=== PATIENT | male | born 1960 | race Hispanic/Latino ===

== ENCOUNTER 2017-10-17 02:55 | Emergency (ER) | payer OTHER ==
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
== END 2017-10-17 05:48 | disposition home or self-care (01) ==
LOC: ER 02:55
DX: S16.1XXA Strain of muscle, fascia and tendon at neck level, initial encounter (principal); S29.012A Strain of muscle and tendon of back wall of thorax, initial encounter; S80.02XA Contusion of left knee, initial encounter; V49.49XA Driver injured in collision with other motor vehicles in traffic accident, initial encounter; I10 Essential (primary) hypertension; K21.9 Gastro-esophageal reflux disease without esophagitis; R73.03 Prediabetes
CPT/HCPCS: 71046; 72125; 72128; 73700; 99284

== ENCOUNTER 2018-01-19 13:01 | Emergency (ER) | payer OTHER ==
[2018-01-19 14:07] LABS: Absolute Lymphocytes (CBC) 1.3 K/uL (0.7-4.9); Absolute Monocytes 0.4 K/uL (0.1-1.3); Absolute Neutrophil 2.7 K/uL (1.8-8.0); Basophils % 0.9 % (0-1.3); Eosinophils % 6.4 % (0-4.4); Hematocrit 46.3 % (39.6-49.0); Lymphocytes % 27.1 % (15.3-44.8); MCH 29.4 pg (27.0-35.0); MCV 86.2 fL (80-100); MPV 8.7 fL (7.6-11.3); Monocytes % 8.9 % (3.3-12.3); RBC Red Blood Cell Count 5.37 M/uL (4.33-5.43)
[2018-01-19 14:24] LABS: Urine Blood NEGATIVE (NEG); Urine Glucose NEGATIVE (NEG); Urine Protein NEGATIVE (NEG)
[2018-01-19 14:25] LABS: Potassium 4.3 mmol/L (3.5-5.1); Thyroid Stimulating Hormone 1.36 uIU/mL (0.36-3.74)
--- NOTE | 2018-01-19 14:38 | ER ---
Nurse's Notes [facility] Name: Claudio Calero Age: 57 yrs Sex: Male : 1960 Arrival Date: 01/19/2018 Time: 13:03 Bed 28 Private MD: RAMONITA SHIPMAN Diagnosis: Other fatigue Presentation: 01/19 13:21 Presenting complaint: Patient states: i have this dizzy spells that started a couple of hj weeks ago; been started taking allergy meds, Zyrtec, o don't know if that s the reason behind the spells; denies fever and chills, nausea and vomiting;. Transition of care: patient was not received from another setting of care. Onset of symptoms was January 19, 2018. Risk Assessment: Do you want to hurt yourself or someone else? Patient reports no desire to harm self or others. Initial Sepsis Screen: Does the patient meet any 2 criteria? No. Patient's initial sepsis screen is negative. Does the patient have a suspected source of infection? No. Patient's initial sepsis screen is negative. Care prior to arrival: None. 13:21 Method Of Arrival: Ambulatory 13:21 Acuity: EVELYN 3 hj Triage Assessment: 13:26 General: Appears in no apparent distress. uncomfortable, Behavior is calm, cooperative, hj appropriate for age. Pain: Denies pain. Historical: - Allergies: 13:26 Sulfa (Sulfonamide Antibiotics); hj - Home Meds: 13:26 lisinopril 10 mg Oral tab 1 tab once daily [Active]; metformin 500 mg Oral Tb24 1 tab hj once daily [Active]; omeprazole 20 mg Oral cpDR 1 cap once daily [Active]; - PMHx: 13:26 GERD; Gout; Hernia; Hypertension; Pre-Diabetes; hj - PSHx: 13:26 hand surg; knee surg; hj - Immunization history:: Adult Immunizations up to date. - Social history:: Smoking status: Patient/guardian denies using tobacco, Patient/guardian denies using alcohol. - Ebola Screening: : Patient negative for fever greater than or equal to 101.5 degrees Fahrenheit, and additional compatible Ebola Virus Disease symptoms Patient denies exposure to infectious person Patient denies travel to an Ebola-affected area in the 21 days before illness onset. Screenin:26 Abuse screen: Denies threats or abuse. Denies injuries from another. Nutritional hj screening: No deficits noted. Tuberculosis screening: No symptoms or risk factors identified. Fall Risk None identified. Assessment: 13:40 General: Appears in no apparent distress. comfortable, well groomed, well developed, tl3 well nourished, Behavior is calm, cooperative, appropriate for age. Pain: Denies pain. Neuro: Level of Consciousness is awake, alert, obeys commands, Oriented to person, place, time, situation, Appropriate for age. Cardiovascular: Heart tones S1 S2 present Patient's skin is warm and dry. Respiratory: Airway is patent Respiratory effort is even, unlabored, Respiratory pattern is regular, symmetrical, Breath sounds are clear bilaterally. GI: No signs and/or symptoms were reported involving the gastrointestinal system. : No signs and/or symptoms were reported regarding the genitourinary system. EENT: Reports allergies, started taking Zyrtec daily recently. Derm: Skin is pink, warm \T\ dry. Musculoskeletal: No signs and/or symptoms reported regarding the musculoskeletal system. 14:37 Reassessment: Patient appears in no apparent distress at this time. No changes from tl3 previously documented assessment. Patient and/or family updated on plan of care and expected duration. Pain level reassessed. pt resting comfortable. Vital Signs: 13:26 BP 141 / 90; Pulse 80; Resp 18; Temp 98.1(TE); Pulse Ox 97% on R/A; Weight 129.27 kg; hj Height 5 ft. 8 in. (172.72 cm); Pain 0/10; 13:50 BP 140 / 88; Pulse 71; Resp 18; Pulse Ox 97% ; tl3 14:37 BP 146 / 101; Pulse 72; Resp 18; Pulse Ox 96% on R/A; tl3 13:26 Body Mass Index 43.33 (129.27 kg, 172.72 cm) ED Course: 13:03 Patient arrived in ED. mr 13:03 VA, VA is Private Physician. mr 13:25 Triage completed. hj 13:26 Arm band placed on right wrist. hj 13:26 Patient has correct armband on for positive identification. Bed in low position. Call light in reach. Side rails up X 1. Adult w/ patient. 13:29 Jean Walter NP is PHCP. pm1 13:29 Ger Urban MD is Attending Physician. pm1 13:29 Gabriella Ruiz, RN is Primary Nurse. tl3 13:50 Pulse ox on. NIBP on. Door closed. Lights dimmed. tl3 13:50 No provider procedures requiring assistance completed. Initial lab(s) drawn, by fl, tl3 sent to lab. Inserted saline lock: 20 gauge in left antecubital area, using aseptic technique. Blood collected. 14:53 IV discontinued, intact, bleeding controlled, No redness/swelling at site. Pressure tl3 dressing applied. Administered Medications: No medications were administered Outcome: 14:38 Discharge ordered by . pm1 14:53 Discharged to home ambulatory. tl3 14:53 Condition: good 14:53 Discharge instructions given to patient, Instructed on discharge instructions, follow up and referral plans. Demonstrated understanding of instructions, follow-up care. 14:54 Patient left the ED. tl3 Signatures: Mabel Eubanks IsidroKeith RN RN Jean Walter, OZIEL CLOD PULLER pm1 Gabriella Ruiz, RN RN tl3 Corrections: (The following items were deleted from the chart) 13:30 13:26 BP 163 / 109; Pulse 80bpm; Resp 18bpm; Pulse Ox 97% RA; Temp 98.1F Temporal; hj 129.27 kg; Height 5 ft. 8 in.; BMI: 43.3; Pain 0/10; hj 14:38 13:55 General: Appears tl3 tl3
--- NOTE | 2018-01-19 14:39 | EDPHYS ---
Physician Documentation [facility] Name: Claudio Calero Age: 57 yrs Sex: Male : 1960 Arrival Date: 01/19/2018 Time: 13:03 Bed 28 Private MD: [place], [place] ED Physician Ger Urban HPI: 01/19 13:40 This 57 yrs old Male presents to ER via Ambulatory with complaints of Low pm1 energy and tiredness. 13:40 Patient presents with complaints of tiredness and low energy for multiple weeks. pm1 Severity of symptoms: in the emergency department the symptoms are unchanged Pain is currently a 0 / 10. The patient has not recently seen a physician. Patient without any chest pain or shortness of breath. No fevers. No nausea, vomiting, or diarrhea. No headache or dizziness. 13:40 Patient did not take his blood pressure or diabetes medications this morning to show pm1 the ER his baseline without the medications. Historical: - Allergies: 13:26 Sulfa (Sulfonamide Antibiotics); hj - Home Meds: 13:26 lisinopril 10 mg Oral tab 1 tab once daily [Active]; metformin 500 mg Oral Tb24 1 tab hj once daily [Active]; omeprazole 20 mg Oral cpDR 1 cap once daily [Active]; - PMHx: 13:26 GERD; Gout; Hernia; Hypertension; Pre-Diabetes; hj - PSHx: 13:26 hand surg; knee surg; hj - Immunization history:: Adult Immunizations up to date. - Social history:: Smoking status: Patient/guardian denies using tobacco, Patient/guardian denies using alcohol. - Ebola Screening: : Patient negative for fever greater than or equal to 101.5 degrees Fahrenheit, and additional compatible Ebola Virus Disease symptoms Patient denies exposure to infectious person Patient denies travel to an Ebola-affected area in the 21 days before illness onset. ROS: 13:40 Constitutional: Negative for fever, chills, and weight loss, Eyes: Negative for injury, pm1 pain, redness, and discharge, ENT: Negative for injury, pain, and discharge, Neck: Negative for injury, pain, and swelling, Cardiovascular: Negative for chest pain, palpitations, and edema, Respiratory: Negative for shortness of breath, cough, wheezing, and pleuritic chest pain, Abdomen/GI: Negative for abdominal pain, nausea, vomiting, diarrhea, and constipation, Back: Negative for injury and pain, : Negative for injury, bleeding, discharge, and swelling, MS/Extremity: Negative for injury and deformity, Skin: Negative for injury, rash, and discoloration, Neuro: Negative for headache, weakness, numbness, tingling, and seizure. Exam: 13:40 Constitutional: This is a well developed, well nourished patient who is awake, alert, pm1 and in no acute distress. Head/Face: Normocephalic, atraumatic. Eyes: Pupils equal round and reactive to light, extra-ocular motions intact. Lids and lashes normal. Conjunctiva and sclera are non-icteric and not injected. Cornea within normal limits. Periorbital areas with no swelling, redness, or edema. ENT: Nares patent. No nasal discharge, no septal abnormalities noted. Tympanic membranes are normal and external auditory canals are clear. Oropharynx with no redness, swelling, or masses, exudates, or evidence of obstruction, uvula midline. Mucous membranes moist. Neck: Trachea midline, no thyromegaly or masses palpated, and no cervical lymphadenopathy. Supple, full range of motion without nuchal rigidity, or vertebral point tenderness. No Meningismus. Chest/axilla: Normal chest wall appearance and motion. Nontender with no deformity. No lesions are appreciated. Cardiovascular: Regular rate and rhythm with a normal S1 and S2. No gallops, murmurs, or rubs. Normal PMI, no JVD. No pulse deficits. Respiratory: Lungs have equal breath sounds bilaterally, clear to auscultation and percussion. No rales, rhonchi or wheezes noted. No increased work of breathing, no retractions or nasal flaring. Abdomen/GI: Soft, non-tender, with normal bowel sounds. No distension or tympany. No guarding or rebound. No evidence of tenderness throughout. Back: No spinal tenderness. No costovertebral tenderness. Full range of motion. Skin: Warm, dry with normal turgor. Normal color with no rashes, no lesions, and no evidence of cellulitis. MS/ Extremity: Pulses equal, no cyanosis. Neurovascular intact. Full, normal range of motion. 13:40 Neuro: Orientation: is normal, Motor: is normal. Vital Signs: 13:26 BP 141 / 90; Pulse 80; Resp 18; Temp 98.1(TE); Pulse Ox 97% on R/A; Weight 129.27 kg; hj Height 5 ft. 8 in. (172.72 cm); Pain 0/10; 13:50 BP 140 / 88; Pulse 71; Resp 18; Pulse Ox 97% ; tl3 14:37 BP 146 / 101; Pulse 72; Resp 18; Pulse Ox 96% on R/A; tl3 13:26 Body Mass Index 43.33 (129.27 kg, 172.72 cm) hj MDM: 13:29 Patient medically screened. pm1 14:37 Data reviewed: vital signs. Data interpreted: Pulse oximetry: on room air is 97 %. pm1 Interpretation: normal. Counseling: I had a detailed discussion with the patient and/or guardian regarding: the historical points, exam findings, and any diagnostic results supporting the discharge/admit diagnosis, lab results, the need for outpatient follow up, to return to the emergency department if symptoms worsen or persist or if there are any questions or concerns that arise at home. 01/19 13:39 Order name: CBC with Diff; Complete Time: 14:37 pm1 01/19 13:39 Order name: BMP; Complete Time: 14:37 pm1 01/19 13:39 Order name: Urine Dipstick-Ancillary (obtain specimen); Complete Time: 14:12 pm1 01/19 13:39 Order name: TSH; Complete Time: 14:37 pm1 01/19 13:39 Order name: IV Saline Lock; Complete Time: 14:12 pm1 01/19 14:15 Order name: Urine Dipstick--Ancillary (enter results); Complete Time: 14:37 bd Administered Medications: No medications were administered Disposition: 16:28 Co-signature as Attending Physician, Ger Urban MD. rn Disposition: 01/19/18 14:38 Discharged to Home. Impression: Other fatigue. - Condition is Stable. - Discharge Instructions: Fatigue. - Medication Reconciliation Form, Thank You Letter, Antibiotic Education, Prescription Opioid Use form. - Follow up: Emergency Department; When: As needed; Reason: Worsening of condition. Follow up: Private Physician; When: 2 - 3 days; Reason: Recheck today's complaints, Continuance of care, Re-evaluation by your physician. - Problem is new. - Symptoms have improved. Signatures: Dispatcher [employer] EDMS Ger Urban MD MD rn Joaquin, Henry, RN RN hj Marinas, Patrick, NP FUNCTIONAL ARCHITECT pm1 Gabriella Ruiz, VIVIENNE RN tl3 Corrections: (The following items were deleted from the chart) 14:38 14:38 01/19/2018 14:38 Discharged to Home. Impression: Weakness. Condition is Stable. pm1 Forms are Medication Reconciliation Form, Thank You Letter, Antibiotic Education, Prescription Opioid Use. Follow up: Emergency Department; When: As needed; Reason: Worsening of condition. Follow up: Private Physician; When: 2 - 3 days; Reason: Recheck today's complaints, Continuance of care, Re-evaluation by your physician. Problem is new. Symptoms have improved. pm1 14:54 14:38 01/19/2018 14:38 Discharged to Home. Impression: Other fatigue. Condition is tl3 Stable. Discharge Instructions: Fatigue. Forms are Medication Reconciliation Form, Thank You Letter, Antibiotic Education, Prescription Opioid Use. Follow up: Emergency Department; When: As needed; Reason: Worsening of condition. Follow up: Private Physician; When: 2 - 3 days; Reason: Recheck today's complaints, Continuance of care, Re-evaluation by your physician. Problem is new. Symptoms have improved. pm1
== END 2018-01-19 14:54 | disposition home or self-care (01) ==
LOC: ER 13:01
DX: R53.83 Other fatigue (principal); I10 Essential (primary) hypertension; R73.03 Prediabetes; Z88.2 Allergy status to sulfonamides
CPT/HCPCS: 36415; 80048; 81003; 84443; 85025; 99283

== ENCOUNTER 2018-08-27 04:03 | Emergency (ER) | payer OTHER ==
--- NOTE | 2018-08-27 05:26 | ER ---
Nurse's Notes [facility] Name: Claudio Calero Age: 57 yrs Sex: Male : 1960 Arrival Date: 08/27/2018 Time: 04:06 Bed 19 Private MD: Diagnosis: Nasal congestion Presentation: 08/27 04:17 Presenting complaint: Patient states: Pt reports he was laying down and he started ea feeling short of breath. Reports he has been having nasal congestion. Pt states "it feels like nasal feel collapse". 04:17 Transition of care: patient was not received from another setting of care. Onset of ea symptoms was August 27, 2018. Risk Assessment: Do you want to hurt yourself or someone else? Patient reports no desire to harm self or others. Initial Sepsis Screen: Does the patient meet any 2 criteria? No. Patient's initial sepsis screen is negative. Does the patient have a suspected source of infection? No. Patient's initial sepsis screen is negative. Care prior to arrival: None. 04:17 Method Of Arrival: Ambulatory ea 04:17 Acuity: EVELYN 3 ea Triage Assessment: 04:31 General: Appears in no apparent distress. Behavior is calm, cooperative, appropriate ea for age. Pain: Denies pain. EENT: Reports nasal congestion. Neuro: Level of Consciousness is awake, alert, obeys commands, Oriented to person, place, time, situation. Cardiovascular: Patient's skin is warm and dry. Respiratory: Reports shortness of breath cough that is non-productive, Airway is patent Respiratory effort is even, unlabored, Respiratory pattern is regular, symmetrical, Breath sounds are clear bilaterally. Distant breath sounds pipo Onset: The symptoms/episode began/occurred today, the patient has mild shortness of breath. Derm: Skin is pink, warm \\T\\ dry. Musculoskeletal: Circulation, motion, and sensation intact. Historical: - Allergies: 04:29 Sulfa (Sulfonamide Antibiotics); ea - Home Meds: 04:29 lisinopril 10 mg Oral tab 1 tab once daily [Active]; metformin 500 mg Oral Tb24 1 tab ea once daily [Active]; omeprazole 20 mg Oral cpDR 1 cap once daily [Active]; - PMHx: 04:29 Pre-Diabetes; Hypertension; Hernia; Gout; GERD; ea - PSHx: 04:29 knee surg; hand surg; ea - Immunization history:: Adult Immunizations up to date. - Social history:: Smoking status: Patient/guardian denies using tobacco. - Ebola Screening: : No symptoms or risks identified at this time. Screenin:17 Abuse screen: Denies threats or abuse. Nutritional screening: No deficits noted. ea Tuberculosis screening: No symptoms or risk factors identified. Fall Risk None identified. Assessment: 05:02 Reassessment: Patient and/or family updated on plan of care and expected duration. Pain ea level reassessed. Patient is alert, oriented x 3, equal unlabored respirations, skin warm/dry/pink. 05:25 Reassessment: Patient and/or family updated on plan of care and expected duration. Pain ea level reassessed. Patient is alert, oriented x 3, equal unlabored respirations, skin warm/dry/pink. Discharge instructions given to patient, verbalized the understanding of instruction. Vital Signs: 04:17 BP 152 / 91; Pulse 83; Resp 20; Temp 97.6(O); Pulse Ox 99% on R/A; Weight 127.01 kg; ea Height 5 ft. 8 in. (172.72 cm); 05:02 BP 137 / 87; Pulse 85; Resp 18; Pulse Ox 95% ; ea 04:17 Body Mass Index 42.57 (127.01 kg, 172.72 cm) ea ED Course: 04:06 Patient arrived in ED. am2 04:09 January Carvajal, RN is Primary Nurse. ea 04:17 Patient has correct armband on for positive identification. Bed in low position. Call ea light in reach. 04:19 Veto Pandya MD is Attending Physician. kdr 04:31 Triage completed. ea 04:34 Arm band placed on right wrist. Patient placed in an exam room, on a stretcher, on ea pulse oximetry. 05:15 No provider procedures requiring assistance completed. Patient did not have IV access ea during this emergency room visit. Administered Medications: No medications were administered Outcome: 05:25 Discharge ordered by . kdr 05:25 Discharged to home ambulatory. ea 05:25 Condition: good 05:25 Discharge instructions given to patient, Instructed on discharge instructions, follow up and referral plans. Demonstrated understanding of instructions, follow-up care. 05:30 Patient left the ED. ea Signatures: Veto Pandya MD MD kdr Moreno, Amanda am2 January Carvajal, RN RN ea Corrections: (The following items were deleted from the chart) 06:12 05:15 Reassessment: Patient and/or family updated on plan of care and expected ea duration. Pain level reassessed. Patient is alert, oriented x 3, equal unlabored respirations, skin warm/dry/pink. Discharge instructions given to patient, verbalized the understanding of instruction ea
--- NOTE | 2018-08-27 05:26 | EDPHYS ---
Physician Documentation [facility] Name: Claudio Calero Age: 57 yrs Sex: Male : 1960 Arrival Date: 08/27/2018 Time: 04:06 Bed 19 Private MD: ED Physician Veto Pandya HPI: 08/27 05:33 This 57 yrs old Male presents to ER via Ambulatory with complaints of kdr Breathing Difficulty. 05:33 The patient presents with Congested and hard to move air through. Onset: The kdr symptoms/episode began/occurred today. Modifying factors: The symptoms are alleviated by The patient had administered Flonase to both nostrils several hours [employer] and now feeling much better, the symptoms are aggravated by nothing. Associated signs and symptoms: The patient has no apparent associated signs or symptoms. Severity of symptoms: At their worst the symptoms were mild in the emergency department the symptoms have resolved. The patient has not experienced similar symptoms in the past. The patient has not recently seen a physician. Historical: - Allergies: 04:29 Sulfa (Sulfonamide Antibiotics); ea - Home Meds: 04:29 lisinopril 10 mg Oral tab 1 tab once daily [Active]; metformin 500 mg Oral Tb24 1 tab ea once daily [Active]; omeprazole 20 mg Oral cpDR 1 cap once daily [Active]; - PMHx: 04:29 Pre-Diabetes; Hypertension; Hernia; Gout; GERD; ea - PSHx: 04:29 knee surg; hand surg; ea - Immunization history:: Adult Immunizations up to date. - Social history:: Smoking status: Patient/guardian denies using tobacco. - Ebola Screening: : No symptoms or risks identified at this time. ROS: 05:33 Constitutional: Negative for fever, chills, and weight loss, Eyes: Negative for injury, kdr pain, redness, and discharge, Neck: Negative for injury, pain, and swelling, Cardiovascular: Negative for chest pain, palpitations, and edema, Respiratory: Negative for shortness of breath, cough, wheezing, and pleuritic chest pain, Abdomen/GI: Negative for abdominal pain, nausea, vomiting, diarrhea, and constipation, Back: Negative for injury and pain, : Negative for injury, bleeding, discharge, and swelling, MS/Extremity: Negative for injury and deformity, Skin: Negative for injury, rash, and discoloration, Neuro: Negative for headache, weakness, numbness, tingling, and seizure activity. Psych: Negative for depression, anxiety, suicide ideation, homicidal ideation, and hallucinations, Allergy/Immunology: Negative for hives, rash, and allergies, Endocrine: Negative for neck swelling, polydipsia, polyuria, polyphagia, and marked weight changes, Hematologic/Lymphatic: Negative for swollen nodes, abnormal bleeding, and unusual bruising. 05:33 ENT: Positive for Nasal Congestion. Exam: 05:33 Constitutional: This is a well developed, well nourished patient who is awake, alert, kdr and in no acute distress. Head/Face: Normocephalic, atraumatic. Eyes: Pupils equal round and reactive to light, extra-ocular motions intact. Lids and lashes normal. Conjunctiva and sclera are non-icteric and not injected. Cornea within normal limits. Periorbital areas with no swelling, redness, or edema. ENT: Nares patent. No nasal discharge, no septal abnormalities noted. Tympanic membranes are normal and external auditory canals are clear. Oropharynx with no redness, swelling, or masses, exudates, or evidence of obstruction, uvula midline. Mucous membranes moist. Neck: Trachea midline, no thyromegaly or masses palpated, and no cervical lymphadenopathy. Supple, full range of motion without nuchal rigidity, or vertebral point tenderness. No Meningismus. Chest/axilla: Normal chest wall appearance and motion. Nontender with no deformity. No lesions are appreciated. Cardiovascular: Regular rate and rhythm with a normal S1 and S2. No gallops, murmurs, or rubs. Normal PMI, no JVD. No pulse deficits. Respiratory: Lungs have equal breath sounds bilaterally, clear to auscultation and percussion. No rales, rhonchi or wheezes noted. No increased work of breathing, no retractions or nasal flaring. Abdomen/GI: Soft, non-tender, with normal bowel sounds. No distension or tympany. No guarding or rebound. No evidence of tenderness throughout. Back: No spinal tenderness. No costovertebral tenderness. Full range of motion. Skin: Warm, dry with normal turgor. Normal color with no rashes, no lesions, and no evidence of cellulitis. MS/ Extremity: Pulses equal, no cyanosis. Neurovascular intact. Full, normal range of motion. Neuro: Awake and alert, GCS 15, oriented to person, place, time, and situation. Cranial nerves II-XII grossly intact. Motor strength 5/5 in all extremities. Sensory grossly intact. Cerebellar exam normal. Normal gait. Psych: Awake, alert, with orientation to person, place and time. Behavior, mood, and affect are within normal limits. Vital Signs: 04:17 BP 152 / 91; Pulse 83; Resp 20; Temp 97.6(O); Pulse Ox 99% on R/A; Weight 127.01 kg; ea Height 5 ft. 8 in. (172.72 cm); 05:02 BP 137 / 87; Pulse 85; Resp 18; Pulse Ox 95% ; ea 04:17 Body Mass Index 42.57 (127.01 kg, 172.72 cm) ea MDM: 05:25 Patient medically screened. kdr 05:43 Data reviewed: vital signs, nurses notes. kdr Administered Medications: No medications were administered Disposition: 08/27/18 05:25 Discharged to Home. Impression: Nasal congestion. - Condition is Stable. - Medication Reconciliation Form, Thank You Letter, Antibiotic Education, Prescription Opioid Use form. - Follow up: Private Physician; When: 2 - 3 days; Reason: If symptoms return, Further diagnostic work-up, Recheck today's complaints, Continuance of care, Re-evaluation by your physician. - Problem is new. - Symptoms are resolved. Signatures: Veto Pandya MD MD kdr January Carvajal RN RN alanna Corrections: (The following items were deleted from the chart) 05:30 05:25 08/27/2018 05:25 Discharged to Home. Impression: Nasal congestion. Condition is ea Stable. Forms are Medication Reconciliation Form, Thank You Letter, Antibiotic Education, Prescription Opioid Use. Follow up: Private Physician; When: 2 - 3 days; Reason: If symptoms return, Further diagnostic work-up, Recheck today's complaints, Continuance of care, Re-evaluation by your physician. Problem is new. Symptoms are resolved. kdr
== END 2018-08-27 05:30 | disposition home or self-care (01) ==
LOC: ER 04:03
DX: R09.81 Nasal congestion (principal); I10 Essential (primary) hypertension; R73.03 Prediabetes; M10.9 Gout, unspecified; K21.9 Gastro-esophageal reflux disease without esophagitis; Z88.2 Allergy status to sulfonamides; Z79.84 Long term (current) use of oral hypoglycemic drugs
CPT/HCPCS: 99283

== ENCOUNTER 2018-08-27 13:05 | Emergency (ER) | payer OTHER ==
[2018-08-27 14:56] LABS: Absolute Lymphocytes (CBC) 1.6 K/uL (0.7-4.9); Absolute Monocytes 0.6 K/uL (0.1-1.3); Absolute Neutrophil 3.1 K/uL (1.8-8.0); Basophils % 1.1 % (0-1.3); Eosinophils % 4.4 % (0-4.4); Hematocrit 45.4 % (39.6-49.0); Lymphocytes % 28.6 % (15.3-44.8); MPV 8.6 fL (7.6-11.3); Monocytes % 10.1 % (3.3-12.3); RBC Red Blood Cell Count 5.31 M/uL (4.33-5.43)
[2018-08-27 15:18] LABS: ALT/SGPT 35 U/L (12-78); AST/SGOT 25 U/L (15-37); Albumin 3.8 g/dL (3.4-5.0); Alkaline Phosphatase 72 U/L (45-117); BUN Blood Urea Nitrogen 21 mg/dL (7-18); Bicarbonate 29 mmol/L (21-32); Bilirubin Direct 0.1 mg/dL (0-0.2); Bilirubin Total 0.5 mg/dL (0.2-1.0); Glucose Level 122 mg/dL (74-106); Magnesium 1.9 mg/dL (1.8-2.4); NT PRO-BNP 40 pg/mL (<125); Potassium 4.4 mmol/L (3.5-5.1); Protein, Total 7.2 g/dL (6.4-8.2); Sodium Level 141 mmol/L (136-145); Troponin (Emerg Dept Use Only) < 0.02 ng/mL (0.0-0.045)
--- NOTE | 2018-08-27 15:20 | RAD REPORT ---
EXAM DESCRIPTION: RAD - Chest Single View - 08/27/2018 2:50 pm CLINICAL HISTORY: CHEST PAIN Chest pain. COMPARISON: Chest Pa And Lat (2 Views) dated 10/17/2017; Chest Single View dated 07/04/2017; Chest Sing le View dated 02/28/2017; Chest Single View dated 02/15/2016 FINDINGS: Portable technique limits examination quality. The lungs are grossly clear. The heart is normal in size. No displaced fractures. IMPRESSION: No acute intrathoracic process suspected.
--- NOTE | 2018-08-27 15:34 | EDPHYS ---
Physician Documentation [facility] Name: Claudio Calero Age: 57 yrs Sex: Male : 1960 Arrival Date: 08/27/2018 Time: 13:08 Bed 13 Private MD: RAMONITA, [place] ED Physician Ger Urban HPI: 08/27 14:30 This 57 yrs old Male presents to ER via Ambulatory with complaints of pm1 Breathing Difficulty. 14:30 The patient has shortness of breath due to nasal congestion. Patient reports chest pain pm1 that started last night around 1999 after eating. Patient with history of reflux disease. The patient's shortness of breath is aggravated by nothing, is alleviated by nothing. Associated signs and symptoms: Pertinent negatives: non-productive cough, productive cough, diaphoresis, dizziness, fever, nausea, numbness in extremities, vomiting. The patient has not experienced similar symptoms in the past. The patient has been recently seen at the [facility] Emergency Department, today, nasal congestion. Historical: - Allergies: 13:28 Sulfa (Sulfonamide Antibiotics); aa5 - Home Meds: 13:28 lisinopril 10 mg Oral tab 1 tab once daily [Active]; metformin 500 mg Oral Tb24 1 tab aa5 once daily [Active]; omeprazole 20 mg Oral cpDR 1 cap once daily [Active]; - PMHx: 13:28 GERD; Gout; Hernia; Hypertension; Diabetes - NIDDM; aa5 - PSHx: 13:28 knee surg; hand surg; aa5 13:28 deviated septum repair; aa5 - Immunization history:: Flu vaccine is not up to date. - Social history:: Smoking status: Patient/guardian denies using tobacco. - Ebola Screening: : No symptoms or risks identified at this time. ROS: 14:30 Constitutional: Negative for fever, chills, and weight loss, Eyes: Negative for injury, pm1 pain, redness, and discharge, Neck: Negative for injury, pain, and swelling, Respiratory: Negative for shortness of breath, cough, wheezing, and pleuritic chest pain. 14:30 Abdomen/GI: Negative for abdominal pain, nausea, vomiting, diarrhea, and constipation, Back: Negative for injury and pain, : Negative for injury, bleeding, discharge, and swelling, MS/Extremity: Negative for injury and deformity, Skin: Negative for injury, rash, and discoloration, Neuro: Negative for headache, weakness, numbness, tingling, and seizure. 14:30 ENT: Positive for Nasal congestion. 14:30 Cardiovascular: Positive for chest pain, Negative for edema, orthopnea, palpitations. Exam: 14:30 Constitutional: This is a well developed, well nourished patient who is awake, alert, pm1 and in no acute distress. Head/Face: Normocephalic, atraumatic. Eyes: Pupils equal round and reactive to light, extra-ocular motions intact. Lids and lashes normal. Conjunctiva and sclera are non-icteric and not injected. Cornea within normal limits. Periorbital areas with no swelling, redness, or edema. ENT: Nares patent. No nasal discharge, no septal abnormalities noted. Tympanic membranes are normal and external auditory canals are clear. Oropharynx with no redness, swelling, or masses, exudates, or evidence of obstruction, uvula midline. Mucous membranes moist. Neck: Trachea midline, no thyromegaly or masses palpated, and no cervical lymphadenopathy. Supple, full range of motion without nuchal rigidity, or vertebral point tenderness. No Meningismus. 14:30 Cardiovascular: Regular rate and rhythm with a normal S1 and S2. No gallops, murmurs, or rubs. Normal PMI, no JVD. No pulse deficits. Respiratory: Lungs have equal breath sounds bilaterally, clear to auscultation and percussion. No rales, rhonchi or wheezes noted. No increased work of breathing, no retractions or nasal flaring. Abdomen/GI: Soft, non-tender, with normal bowel sounds. No distension or tympany. No guarding or rebound. No evidence of tenderness throughout. Back: No spinal tenderness. No costovertebral tenderness. Full range of motion. Skin: Warm, dry with normal turgor. Normal color with no rashes, no lesions, and no evidence of cellulitis. MS/ Extremity: Pulses equal, no cyanosis. Neurovascular intact. Full, normal range of motion. 14:30 Chest/axilla: Inspection: normal, Palpation: is normal. 14:30 Neuro: Orientation: is normal, Motor: is normal, moves all fours, Sensation: is normal, no obvious gross deficits, Gait: is steady, at a normal pace, without difficulty. Vital Signs: 13:29 BP 142 / 86; Pulse 76; Resp 16 S; Temp 98.2(TE); Pulse Ox 96% on R/A; Weight 131.54 kg aa5 (R); Height 5 ft. 8 in. (172.72 cm) (R); Pain 0/10; 14:49 BP 151 / 86; Pulse 72; Resp 18; Pulse Ox 96% on R/A; tw2 15:26 BP 138 / 88; Pulse 61; Resp 17; Pulse Ox 98% on R/A; tw2 13:29 Body Mass Index 44.09 (131.54 kg, 172.72 cm) aa5 MDM: 13:50 Patient medically screened. pm1 15:33 Data reviewed: vital signs. Data interpreted: Pulse oximetry: on room air is 98 %. pm1 Interpretation: normal. Counseling: I had a detailed discussion with the patient and/or guardian regarding: the historical points, exam findings, and any diagnostic results supporting the discharge/admit diagnosis, lab results, radiology results, the need for outpatient follow up, to return to the emergency department if symptoms worsen or persist or if there are any questions or concerns that arise at home. 08/27 14:19 Order name: Basic Metabolic Panel; Complete Time: 15:33 pm1 08/27 14:19 Order name: CBC with Diff; Complete Time: 15:33 pm1 08/27 14:19 Order name: LFT's; Complete Time: 15:33 pm1 08/27 14:19 Order name: Magnesium; Complete Time: 15:33 pm1 08/27 14:19 Order name: NT PRO-BNP; Complete Time: 15:33 pm1 08/27 14:19 Order name: PT-INR; Complete Time: 15:33 pm1 08/27 14:19 Order name: Troponin (emerg Dept Use Only); Complete Time: 15:33 pm1 08/27 14:19 Order name: XRAY Chest (1 view); Complete Time: 15:33 pm1 08/27 14:19 Order name: EKG; Complete Time: 14:20 pm1 08/27 14:19 Order name: Cardiac monitoring; Complete Time: 14:53 pm1 08/27 14:19 Order name: EKG - Nurse/Tech; Complete Time: 15:01 pm08/27 14:19 Order name: IV Saline Lock; Complete Time: 14:53 pm1 08/27 14:19 Order name: Labs collected and sent; Complete Time: 14:53 pm1 08/27 14:19 Order name: O2 Per Protocol; Complete Time: 14:53 pm1 08/27 14:19 Order name: O2 Sat Monitoring; Complete Time: 14:53 pm1 Administered Medications: No medications were administered Disposition: 16:10 Co-signature as Attending Physician, Ger Urban MD. rn Disposition: 08/27/18 15:34 Discharged to Home. Impression: Chest pain, unspecified. - Condition is Stable. - Discharge Instructions: Nonspecific Chest Pain. - Medication Reconciliation Form, Thank You Letter form. - Follow up: Emergency Department; When: As needed; Reason: Worsening of condition. Follow up: Private Physician; When: 2 - 3 days; Reason: Recheck today's complaints, Continuance of care, Re-evaluation by your physician. - Problem is new. - Symptoms have improved. Signatures: Dispatcher [employer] EDMS Ger Urban MD MD rn Calderon, Audri RN RN aa5 Jean Walter NP LAW LIBRARIAN pm1 Ambar Neal RN RN tw2 Corrections: (The following items were deleted from the chart) 15:42 15:34 08/27/2018 15:34 Discharged to Home. Impression: Chest pain, unspecified. tw2 Condition is Stable. Forms are Medication Reconciliation Form, Thank You Letter, Antibiotic Education, Prescription Opioid Use. Follow up: Emergency Department; When: As needed; Reason: Worsening of condition. Follow up: Private Physician; When: 2 - 3 days; Reason: Recheck today's complaints, Continuance of care, Re-evaluation by your physician. Problem is new. Symptoms have improved. pm1
--- NOTE | 2018-08-27 15:34 | ER ---
Nurse's Notes [facility] Name: Claudio Calero Age: 57 yrs Sex: Male : 1960 Arrival Date: 08/27/2018 Time: 13:08 Bed 13 Private MD: RAMONITA SHIPMAN Diagnosis: Chest pain, unspecified Presentation: 08/27 13:27 Presenting complaint: Patient states: "I was just here this morning but I am still aa5 feeling short of breath". Pt reports SOB since last night. Pt states "I feel like my nasal passages are plugged and when I lie down flat I can't sleep because I can't breath". Transition of care: patient was not received from another setting of care. Onset of symptoms was August 2018. Risk Assessment: Do you want to hurt yourself or someone else? Patient reports no desire to harm self or others. Initial Sepsis Screen: Does the patient meet any 2 criteria? No. Patient's initial sepsis screen is negative. Does the patient have a suspected source of infection? No. Patient's initial sepsis screen is negative. Care prior to arrival: None. 13:27 Method Of Arrival: Ambulatory aa5 13:27 Acuity: EVELYN 3 aa5 Triage Assessment: 13:50 General: Appears in no apparent distress. Respiratory: Onset: The symptoms/episode tw2 began/occurred this morning, the patient has mild shortness of breath. Respiratory: Reports shortness of breath at rest. Historical: - Allergies: 13:28 Sulfa (Sulfonamide Antibiotics); aa5 - Home Meds: 13:28 lisinopril 10 mg Oral tab 1 tab once daily [Active]; metformin 500 mg Oral Tb24 1 tab aa5 once daily [Active]; omeprazole 20 mg Oral cpDR 1 cap once daily [Active]; - PMHx: 13:28 GERD; Gout; Hernia; Hypertension; Diabetes - NIDDM; aa5 - PSHx: 13:28 knee surg; hand surg; aa5 13:28 deviated septum repair; aa5 - Immunization history:: Flu vaccine is not up to date. - Social history:: Smoking status: Patient/guardian denies using tobacco. - Ebola Screening: : No symptoms or risks identified at this time. Screenin:58 Abuse screen: Denies threats or abuse. Nutritional screening: No deficits noted. tw2 Tuberculosis screening: No symptoms or risk factors identified. Fall Risk None identified. Assessment: 14:00 General: Appears in no apparent distress. obese, well groomed, Behavior is calm, tw2 cooperative, appropriate for age. Pain: Denies pain. Neuro: Level of Consciousness is awake, alert, obeys commands, Oriented to person, place, time, situation. Cardiovascular: Heart tones S1 S2 Patient's skin is warm and dry. Rhythm is regular. Respiratory: Airway is patent Respiratory effort is even, unlabored, Respiratory pattern is regular, symmetrical, Breath sounds are clear bilaterally. GI: Abdomen is round non-distended, obese, Bowel sounds present X 4 quads. Reports indigestion, "and i have this hernia that needs to be repaired but i want to make sure everything is ok". : No signs and/or symptoms were reported regarding the genitourinary system. EENT: No signs and/or symptoms were reported regarding the EENT system. Derm: No signs and/or symptoms reported regarding the dermatologic system. Musculoskeletal: Range of motion: intact in all extremities. 14:49 Reassessment: Patient appears in no apparent distress at this time. No changes from tw2 previously documented assessment. Patient and/or family updated on plan of care and expected duration. Pain level reassessed. Patient is alert, oriented x 3, equal unlabored respirations, skin warm/dry/pink. 15:27 Reassessment: Patient appears in no apparent distress at this time. No changes from tw2 previously documented assessment. Patient and/or family updated on plan of care and expected duration. Pain level reassessed. Patient is alert, oriented x 3, equal unlabored respirations, skin warm/dry/pink. 15:42 Reassessment: Patient appears in no apparent distress at this time. No changes from tw2 previously documented assessment. Patient and/or family updated on plan of care and expected duration. Pain level reassessed. Patient is alert, oriented x 3, equal unlabored respirations, skin warm/dry/pink. Vital Signs: 13:29 BP 142 / 86; Pulse 76; Resp 16 S; Temp 98.2(TE); Pulse Ox 96% on R/A; Weight 131.54 kg aa5 (R); Height 5 ft. 8 in. (172.72 cm) (R); Pain 0/10; 14:49 BP 151 / 86; Pulse 72; Resp 18; Pulse Ox 96% on R/A; tw2 15:26 BP 138 / 88; Pulse 61; Resp 17; Pulse Ox 98% on R/A; tw2 13:29 Body Mass Index 44.09 (131.54 kg, 172.72 cm) aa5 ED Course: 13:08 Patient arrived in ED. mr 13:08 VA, VA is Private Physician. mr 13:27 Triage completed. aa5 13:27 Arm band placed on. aa5 13:49 Jean Walter NP is PHCP. pm1 13:49 Ger Urban MD is Attending Physician. pm1 13:50 Bed in low position. Call light in reach. Side rails up X2. campus monitor on. Pulse tw2 ox on. NIBP on. Warm blanket given. 13:51 Ambar Neal RN is Primary Nurse. tw2 14:51 XRAY Chest (1 view) In Process Unspecified. EDMS 14:52 Initial lab(s) drawn, by me, sent to lab. Inserted saline lock: 20 gauge in left ms antecubital area, using aseptic technique. Blood collected. 15:01 EKG done, by ED staff, reviewed by Ger Urban MD. ms 15:42 No provider procedures requiring assistance completed. IV discontinued, intact, tw2 bleeding controlled, No redness/swelling at site. Pressure dressing applied. Administered Medications: No medications were administered Outcome: 15:34 Discharge ordered by MD. pm1 15:42 Discharged to home ambulatory. tw2 15:42 Condition: stable 15:42 Discharge instructions given to patient, Instructed on discharge instructions, follow up and referral plans. Demonstrated understanding of instructions, follow-up care. 15:42 Patient left the ED. tw2 Signatures: Dispatcher [employer] EDSC EubanksYuli dan mr LojaMabel Francisca Bloom RN RN aa5 Jean Walter NP CORK INSULATION INSTALLER pm1 Ambar Neal RN RN tw2 Corrections: (The following items were deleted from the chart) 13:30 13:27 Presenting complaint: Patient states: "I was just here this morning but I am aa5 still feeling short of breath". Pt reports SOB since last night. aa5
--- NOTE | 2018-08-28 12:27 | EKG ---
Test Date: 2018-08-27 Test Time: 14:57:47 Supervisor Microfilm Duplicating Unit: MEASUREMENT RESULTS: Intervals: Rate: 73 IL: 170 QRSD: 88 QT: 394 QTc: 434 [place]: P: 39 IL: 170 QRS: 48 T: 44 INTERPRETIVE STATEMENTS: Normal sinus rhythm Low voltage QRS Borderline ECG Compared to ECG 07/04/2017 10:14:28 Low QRS voltage now present Electronically Signed On 08-28-18 12:24:33 CDT by Joni Live
== END 2018-08-27 15:42 | disposition home or self-care (01) ==
LOC: ER 13:05
DX: R07.9 Chest pain, unspecified (principal); R09.81 Nasal congestion; K21.9 Gastro-esophageal reflux disease without esophagitis; M10.9 Gout, unspecified; I10 Essential (primary) hypertension; E11.9 Type 2 diabetes mellitus without complications; Z88.2 Allergy status to sulfonamides
CPT/HCPCS: 36415; 71045; 80048; 80076; 83735; 83880; 84484; 85025; 85610; 93005; 99284

== ENCOUNTER 2019-01-17 02:27 | Emergency (ER) | payer OTHER ==
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
--- NOTE | 2019-01-17 08:16 | RAD REPORT ---
EXAM DESCRIPTION: Carmen Single View01/17/2019 3:46 am CLINICAL HISTORY: Chest pain COMPARISON: August 2018 FINDINGS: The lungs appear clear of acute infiltrate. The heart is normal size IMPRESSION: No acute abnormalities displayed
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
== END 2019-01-17 05:56 | disposition home or self-care (01) ==
LOC: ER 02:27
DX: M54.2 Cervicalgia (principal); M25.512 Pain in left shoulder; T14.8XXA Other injury of unspecified body region, initial encounter; V49.3XXA Car occupant (driver) (passenger) injured in unspecified nontraffic accident, initial encounter; I10 Essential (primary) hypertension; M10.9 Gout, unspecified; E11.9 Type 2 diabetes mellitus without complications; K21.9 Gastro-esophageal reflux disease without esophagitis; Z79.84 Long term (current) use of oral hypoglycemic drugs; Z88.2 Allergy status to sulfonamides
CPT/HCPCS: 70450; 71045; 72125; 99283

== ENCOUNTER 2019-03-27 16:06 | Emergency (ER) | payer OTHER ==
[2019-03-27 16:28] LABS: Absolute Lymphocytes (CBC) 1.5 K/uL (0.7-4.9); Basophils % 1.3 % (0-1.3); Hematocrit 41.3 % (39.6-49.0); Lymphocytes % 24.2 % (15.3-44.8); MPV 8.5 fL (7.6-11.3); RBC Red Blood Cell Count 4.91 M/uL (4.33-5.43)
[2019-03-27] MEDS ORDERED: FAMOTIDINE 20 MG/2 ML VIAL IV ONE (16:28)
--- NOTE | 2019-03-27 16:36 | EKG ---
Test Date: 2019-03-27 Test Time: 16:00:40 Licensed Massage Therapist: MERRY MEASUREMENT RESULTS: Intervals: Rate: 99 WA: 162 QRSD: 90 QT: 362 QTc: 464 Harwood: P: 46 WA: 162 QRS: 66 T: 46 INTERPRETIVE STATEMENTS: Normal sinus rhythm Low voltage QRS Borderline ECG Compared to ECG 08/27/2018 14:57:47 No significant changes Electronically Signed On 03-27-19 16:35:25 CDT by Titi Khan
--- NOTE | 2019-03-27 16:38 | RAD REPORT ---
EXAM DESCRIPTION: RAD - Chest Single View - 03/27/2019 4:28 pm CLINICAL HISTORY: CHEST PAIN Chest pain. COMPARISON: Chest Single View dated 01/17/2019; Chest Single View dated 08/27/2018; Chest Pa And Lat (2 Views) dated 10/17/2017; Chest Single View dated 07/04/2017 FINDINGS: Portable technique limits examination quality. The lungs are grossly clear. The heart is normal in size. No displaced fractures. IMPRESSION: No acute intrathoracic process suspected.
[2019-03-27 16:40] LABS: Protime INR 0.95
[2019-03-27 16:53] LABS: ALT/SGPT 30 U/L (12-78); AST/SGOT 26 U/L (15-37); Albumin 3.5 g/dL (3.4-5.0); Alkaline Phosphatase 82 U/L (45-117); BUN Blood Urea Nitrogen 15 mg/dL (7-18); Bicarbonate 28 mmol/L (21-32); Bilirubin Direct 0.1 mg/dL (0-0.2); Bilirubin Total 0.4 mg/dL (0.2-1.0); Glucose Level 159 mg/dL (74-106); Magnesium 1.8 mg/dL (1.8-2.4); NT PRO-BNP 55 pg/mL (<125); Potassium 4.1 mmol/L (3.5-5.1); Protein, Total 7.1 g/dL (6.4-8.2); Sodium Level 140 mmol/L (136-145); Troponin (Emerg Dept Use Only) < 0.02 ng/mL (0.0-0.045)
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
--- NOTE | 2019-03-27 18:55 | EDPHYS ---
Physician Documentation [facility] Name: Claudio Calero Age: 58 yrs Sex: Male : 1960 Arrival Date: 03/27/2019 Time: 16:07 Bed 16 Private MD: ED Physician Alfred Baldwin HPI: 03/27 18:07 This 58 yrs old Male presents to ER via EMS with complaints of Chest Pain. jr8 18:07 Onset: The symptoms/episode began/occurred at 14:00. Pt reports he had recently gotten jr8 done eating and began having pain in the middle of his chest that lasted for about thirty minutes, pt states he believes it was acid reflux as he has a history of it but was uncomfortable with the different sensation. . Historical: - Allergies: 16:20 Sulfa (Sulfonamide Antibiotics); sv - Home Meds: 16:20 lisinopril 10 mg Oral tab 1 tab once daily [Active]; metformin 500 mg Oral Tb24 1 tab sv once daily [Active]; omeprazole 20 mg Oral cpDR 1 cap once daily [Active]; - PMHx: 16:20 Diabetes - NIDDM; GERD; Gout; Hernia; Hypertension; Pre-Diabetes; sv - PSHx: 16:20 right rotator cuff; sv - Immunization history:: Adult Immunizations up to date. - Ebola Screening: : No symptoms or risks identified at this time. - Social history:: Smoking status: Patient/guardian denies using tobacco. ROS: 18:07 Constitutional: Negative for fever, chills, and weight loss. jr8 18:07 Eyes: Negative for injury, pain, redness, and discharge, ENT: Negative for injury, pain, and discharge, Neck: Negative for injury, pain, and swelling, Cardiovascular: Negative for chest pain, palpitations, and edema, Respiratory: Negative for shortness of breath, cough, wheezing, and pleuritic chest pain, Abdomen/GI: Negative for abdominal pain, nausea, vomiting, diarrhea, and constipation, Back: Negative for injury and pain, MS/Extremity: Negative for injury and deformity, Skin: Negative for injury, rash, and discoloration, Neuro: Negative for headache, weakness, numbness, tingling, and seizure. 18:07 Constitutional: Exam: 18:07 Constitutional: This is a well developed, well nourished patient who is awake, alert, jr8 and in no acute distress. Head/Face: Normocephalic, atraumatic. Eyes: Pupils equal round and reactive to light, extra-ocular motions intact. Lids and lashes normal. Conjunctiva and sclera are non-icteric and not injected. Cornea within normal limits. Periorbital areas with no swelling, redness, or edema. ENT: Nares patent. No nasal discharge, no septal abnormalities noted. Tympanic membranes are normal and external auditory canals are clear. Oropharynx with no redness, swelling, or masses, exudates, or evidence of obstruction, uvula midline. Mucous membranes moist. Neck: Trachea midline, no thyromegaly or masses palpated, and no cervical lymphadenopathy. Supple, full range of motion without nuchal rigidity, or vertebral point tenderness. No Meningismus. Chest/axilla: Normal chest wall appearance and motion. Nontender with no deformity. No lesions are appreciated. Cardiovascular: Regular rate and rhythm with a normal S1 and S2. No gallops, murmurs, or rubs. Normal PMI, no JVD. No pulse deficits. Respiratory: Lungs have equal breath sounds bilaterally, clear to auscultation and percussion. No rales, rhonchi or wheezes noted. No increased work of breathing, no retractions or nasal flaring. Abdomen/GI: Soft, non-tender, with normal bowel sounds. No distension or tympany. No guarding or rebound. No evidence of tenderness throughout. Back: No spinal tenderness. No costovertebral tenderness. Full range of motion. MS/ Extremity: Pulses equal, no cyanosis. Neurovascular intact. Full, normal range of motion. Neuro: Awake and alert, GCS 15, oriented to person, place, time, and situation. Cranial nerves II-XII grossly intact. Motor strength 5/5 in all extremities. Sensory grossly intact. Cerebellar exam normal. Normal gait. Vital Signs: 16:20 BP 133 / 90; Pulse 100; Resp 20; Temp 98.3(O); Pulse Ox 100% ; Weight 131.54 kg; Height sv 5 ft. 8 in. (172.72 cm); Pain 2/10; 16:46 BP 124 / 87; Pulse 94; Resp 20; Pulse Ox 96% ; sv 17:32 BP 120 / 83; Pulse 81; Resp 16; Pulse Ox 96% ; sv 18:32 Pulse 74; Resp 16; Pulse Ox 98% ; sv 19:07 BP 127 / 82; Pulse 76; Resp 18; Pulse Ox 95% on R/A; jb4 16:20 Body Mass Index 44.09 (131.54 kg, 172.72 cm) sv MDM: 16:11 Patient medically screened. jr8 18:52 Data reviewed: vital signs, nurses notes, lab test result(s), EKG, radiologic studies, jr8 and as a result, I will discharge patient. Data interpreted: Pulse oximetry: on room air is 98 %. Interpretation: normal. Counseling: I had a detailed discussion with the patient and/or guardian regarding: the historical points, exam findings, and any diagnostic results supporting the discharge/admit diagnosis, lab results, radiology results, the need for outpatient follow up, a family practitioner, to return to the emergency department if symptoms worsen or persist or if there are any questions or concerns that arise at home. ED course: Pt chest pain free throughout visit, reports that he had an echo and stress test last year which were normal. Will FU with PCP and continue PPI, return precautions given. . 03/27 16:07 Order name: Basic Metabolic Panel; Complete Time: 17:08 03/27 16:07 Order name: CBC with Diff; Complete Time: 16:49 03/27 16:07 Order name: LFT's; Complete Time: 17:08 03/27 16:07 Order name: Magnesium; Complete Time: 17:08 03/27 16:07 Order name: NT PRO-BNP; Complete Time: 17:08 03/27 16:07 Order name: PT-INR; Complete Time: 16:49 sv 03/27 16:07 Order name: Troponin (emerg Dept Use Only); Complete Time: 17:08 03/27 16:07 Order name: XRAY Chest (1 view); Complete Time: 16:49 03/27 16:07 Order name: EKG; Complete Time: 16:08 sv 03/27 16:07 Order name: Cardiac monitoring; Complete Time: 16:40 sv 03/27 16:07 Order name: EKG - Nurse/Tech; Complete Time: 16:26 03/27 17:35 Order name: Troponin (emerg Dept Use Only): draw \T\ 1800; Complete Time: 18:49 sv 03/27 16:07 Order name: IV Saline Lock; Complete Time: 16:26 sv 03/27 16:07 Order name: Labs collected and sent; Complete Time: 16:26 sv 03/27 16:07 Order name: O2 Per Protocol; Complete Time: 16:27 sv 03/27 16:07 Order name: O2 Sat Monitoring; Complete Time: 16:27 sv Administered Medications: 16:26 CANCELLED (Physician Discretion): Aspirin Chewable Tablet 324 mg PO once; 81 mg tablets sv x 4 16:40 Drug: Pepcid 20 mg Route: IVP; Site: left antecubital; sv 17:35 Follow up: Response: No adverse reaction sv Disposition: 03/28 06:22 Co-signature as Attending Physician, Alfred Baldwin MD I agree with the assessment and yamil plan of care. Disposition: 03/27/19 18:54 Discharged to Home. Impression: Chest pain, unspecified. - Condition is Stable. - Discharge Instructions: Nonspecific Chest Pain, Food Choices for Gastroesophageal Reflux Disease, Adult, Gastroesophageal Reflux Disease, Adult. - Medication Reconciliation Form, Thank You Letter form. - Follow up: Private Physician; When: 2 - 3 days; Reason: Recheck today's complaints, Re-evaluation by your physician. - Problem is new. - Symptoms are resolved. Signatures: Dispatcher [employer] Veronika Castillo, RN Alfred Fairchild MD MD cha Roszak, Josh, PA PA jr8 Kayode Guy RN RN jb4 Corrections: (The following items were deleted from the chart) 03/27 16:26 16:16 Aspirin Chewable Tablet 324 mg PO once; 81 mg tablets x 4 ordered. jr8 sv 19:09 18:54 03/27/2019 18:54 Discharged to Home. Impression: Chest pain, unspecified. jb4 Condition is Stable. Discharge Instructions: Nonspecific Chest Pain, Food Choices for Gastroesophageal Reflux Disease, Adult, Gastroesophageal Reflux Disease, Adult. Forms are Medication Reconciliation Form, Thank You Letter, Antibiotic Education, Prescription Opioid Use. Follow up: Private Physician; When: 2 - 3 days; Reason: Recheck today's complaints, Re-evaluation by your physician. Problem is new. Symptoms are resolved. jr8
[2019-03-27 19:16] VITALS: TEMP 98.3
[2019-03-27 19:20] VITALS: BP 127/82; O2SAT 95
== END 2019-03-27 19:09 | disposition home or self-care (01) ==
LOC: ER 16:06
DX: R07.9 Chest pain, unspecified (principal); I10 Essential (primary) hypertension; E11.9 Type 2 diabetes mellitus without complications; K21.9 Gastro-esophageal reflux disease without esophagitis; Z88.2 Allergy status to sulfonamides
CPT/HCPCS: 36415; 71045; 80048; 80076; 83735; 83880; 84484; 85025; 85610; 93005; 96374; 99285

== ENCOUNTER 2019-06-22 13:34 | Emergency (ER) | payer OTHER ==
[2019-06-22 15:01] LABS: Absolute Lymphocytes (CBC) 1.7 K/uL (0.7-4.9); Basophils % 1.2 % (0-1.3); Hematocrit 45.4 % (39.6-49.0); Lymphocytes % 30.4 % (15.3-44.8); MPV 8.3 fL (7.6-11.3); RBC Red Blood Cell Count 5.32 M/uL (4.33-5.43)
[2019-06-22 15:25] LABS: Potassium 4.2 mmol/L (3.5-5.1)
--- NOTE | 2019-06-22 15:50 | EDPHYS ---
Physician Documentation [facility] Name: Claudio Calero Age: 58 yrs Sex: Male : 1960 Arrival Date: 06/22/2019 Time: 13:36 Bed 23 Private MD: KAREEM Physician Alfred Baldwin HPI: 06/22 14:40 This 58 yrs old Male presents to ER via Ambulatory with complaints of Dry cp mouth, Weakness, thirsty. 14:40 general fatigue, increased thirst, dry mouth. Patient reports history of diabetes but cp has not [facility]. Patient reports he did walk 3 miles yesterday w/o any problems. Historical: - Allergies: 13:49 Sulfa (Sulfonamide Antibiotics); sg - PMHx: 13:49 Diabetes - NIDDM; GERD; Gout; Hernia; Hypertension; Pre-Diabetes; sg - PSHx: 13:49 right rotator cuff; sg - Ebola Screening: : No symptoms or risks identified at this time. ROS: 14:45 Constitutional: Positive for fatigue, Negative for body aches, chills, fever, poor PO cp intake. 14:45 Eyes: Negative for injury, pain, redness, and discharge. cp 14:45 ENT: Negative for drainage from ear(s), ear pain, sore throat, difficulty swallowing, difficulty handling secretions. 14:45 Cardiovascular: Negative for chest pain, edema, palpitations. 14:45 Respiratory: Negative for cough, shortness of breath, wheezing. 14:45 Abdomen/GI: Negative for abdominal pain, nausea, vomiting, and diarrhea, black/tarry stool, rectal bleeding. 14:45 : Negative for urinary symptoms. 14:45 Skin: Negative for rash. 14:45 Neuro: Negative for altered mental status, dizziness, headache, weakness. 14:45 All other systems are negative. Exam: 14:55 Constitutional: The patient appears in no acute distress, alert, awake, cp non-diaphoretic, well developed, well nourished, obese. 14:55 Head/Face: Normocephalic, atraumatic. cp 14:55 Eyes: Periorbital structures: appear normal, Conjunctiva: normal, no exudate, no injection, Sclera: no appreciated abnormality, Lids and lashes: appear normal, bilaterally. 14:55 ENT: External ear(s): are unremarkable, Nose: is normal, Mouth: is normal, Posterior pharynx: is normal. 14:55 Chest/axilla: Inspection: normal, Palpation: is normal, no crepitus, no tenderness. 14:55 Cardiovascular: Rate: normal, Rhythm: regular, Heart sounds: murmur, not appreciated, Edema: is not appreciated, JVD: is not appreciated. 14:55 Respiratory: the patient does not display signs of respiratory distress, Respirations: normal, no use of accessory muscles, no retractions, labored breathing, is not present, Breath sounds: are clear throughout, no decreased breath sounds. 14:55 Abdomen/GI: Inspection: abdomen appears normal, Bowel sounds: active, all quadrants, Palpation: abdomen is soft and non-tender, in all quadrants. 14:55 Neuro: Orientation: to person, place \T\ time. Mentation: is normal, Cerebellar function: is grossly normal, Motor: moves all fours, strength is normal, Sensation: is normal. Vital Signs: 13:50 BP 146 / 86; Pulse 87; Resp 16; Temp 98.6; Pulse Ox 100% on R/A; Pain 0/10; sg MDM: 14:24 Patient medically screened. cp 15:48 Data reviewed: vital signs, nurses notes, lab test result(s), and as a result, I will cp discharge patient. 15:48 Counseling: I had a detailed discussion with the patient and/or guardian regarding: the cp historical points, exam findings, and any diagnostic results supporting the discharge/admit diagnosis, lab results, the need for outpatient follow up, a family practitioner, to return to the emergency department if symptoms worsen or persist or if there are any questions or concerns that arise at home. 06/22 14:37 Order name: CBC with Diff; Complete Time: 15:45 cp 06/22 14:37 Order name: BMP; Complete Time: 15:45 cp 06/22 15:45 Interpretation: Normal except: GFR 57. cp 06/22 14:37 Order name: Accucheck Blood Glucose; Complete Time: 15:21 cp 06/22 14:37 Order name: IV; Complete Time: 15:21 cp 06/22 14:56 Order name: Glucose, Ancillary Testing; Complete Time: 15:45 EDMS 06/22 15:46 Interpretation: Reviewed. cp 06/22 15:02 Order name: Urine Dipstick--Ancillary (enter results) eb 06/22 14:41 Order name: Urine Dipstick-Ancillary (obtain specimen); Complete Time: 15:21 cp Administered Medications: No medications were administered Point of Care Testing: Blood Glucose: 14:45 Blood Glucose: 107 mg/dL; aa5 Ranges: Critical Glucose Levels:Adult <50 mg/dl or >400 mg/dl <40 mg/dl or >180 mg/dl Disposition: 06/23 12:36 Co-signature as Attending Physician, Alfred Baldwin MD I agree with the assessment and [facility] plan of care. Disposition: 06/22/19 15:49 Discharged to Home. Impression: Other fatigue. - Condition is Stable. - Discharge Instructions: Diabetes and Foot Care, Fatigue, Diabetes and Exercise, Diabetes Mellitus and Food. - Medication Reconciliation Form, Thank You Letter, Antibiotic Education, Prescription Opioid Use form. - Follow up: Private Physician; When: 2 - 3 days; Reason: Recheck today's complaints. - Problem is new. - Symptoms have improved. Signatures: Dispatcher [employer] EDFabian Talbot RN RN sg Anderson, Corey, MD MD cha Calderon, Audri, RN RN aa5 Alfred Hooker PA PA cp Corrections: (The following items were deleted from the chart) 06/22 15:50 15:49 06/22/2019 15:49 Discharged to Home. Impression: Person with feared health cp complaint in whom no diagnosis is made. Condition is Stable. Forms are Medication Reconciliation Form, Thank You Letter, Antibiotic Education, Prescription Opioid Use. Follow up: Private Physician; When: 2 - 3 days; Reason: Recheck today's complaints. Problem is new. Symptoms have improved. cp 16:06 15:50 06/22/2019 15:49 Discharged to Home. Impression: Other fatigue. Condition is aa5 Stable. Discharge Instructions: Diabetes and Foot Care, Diabetes and Exercise, Diabetes Mellitus and Food. Forms are Medication Reconciliation Form, Thank You Letter, Antibiotic Education, Prescription Opioid Use. Follow up: Private Physician; When: 2 - 3 days; Reason: Recheck today's complaints. Problem is new. Symptoms have improved. cp
--- NOTE | 2019-06-22 15:50 | ER ---
Nurse's Notes [facility] Name: Claudio Calero Age: 58 yrs Sex: Male : 1960 Arrival Date: 06/22/2019 Time: 13:36 Bed 23 Private MD: Diagnosis: Other fatigue Presentation: 06/22 13:49 Presenting complaint: Patient states: Dry mouth, increased thirst, reports being sg prediabetic and started on Metformin but has not been taking the medication. Transition of care: patient was not received from another setting of care. No acute neurological deficit is noted. Onset of symptoms was June 22, 2019. Risk Assessment: Do you want to hurt yourself or someone else? Patient reports no desire to harm self or others. Initial Sepsis Screen: Does the patient meet any 2 criteria? No. Patient's initial sepsis screen is negative. Does the patient have a suspected source of infection? No. Patient's initial sepsis screen is negative. Care prior to arrival: None. 13:49 Method Of Arrival: Ambulatory sg 13:49 Acuity: EVELYN 3 sg Historical: - Allergies: 13:49 Sulfa (Sulfonamide Antibiotics); sg - PMHx: 13:49 Diabetes - NIDDM; GERD; Gout; Hernia; Hypertension; Pre-Diabetes; sg - PSHx: 13:49 right rotator cuff; sg - Ebola Screening: : No symptoms or risks identified at this time. Screenin:30 Abuse screen: Denies threats or abuse. Nutritional screening: No deficits noted. aa5 Tuberculosis screening: No symptoms or risk factors identified. Fall Risk None identified. Assessment: 14:30 General: Appears comfortable, Behavior is calm, cooperative. Pain: Denies pain. Neuro: aa5 Level of Consciousness is awake, alert, obeys commands, Oriented to person, place, time, situation. Cardiovascular: Heart tones S1 S2 present Rhythm is regular. Respiratory: Airway is patent Respiratory effort is even, unlabored, Respiratory pattern is regular, symmetrical. GI: No signs and/or symptoms were reported involving the gastrointestinal system. : No signs and/or symptoms were reported regarding the genitourinary system. EENT: Reports increased thirst and dry mouth . Derm: Skin is pink, warm \T\ dry. Musculoskeletal: Range of motion: intact in all extremities. 16:00 Reassessment: Patient is alert, oriented x 3, equal unlabored respirations, skin aa5 warm/dry/pink. Patient denies pain at this time. Vital Signs: 13:50 BP 146 / 86; Pulse 87; Resp 16; Temp 98.6; Pulse Ox 100% on R/A; Pain 0/10; sg ED Course: 13:36 Patient arrived in ED. am2 13:48 Arm band placed on. sg 13:52 Triage completed. 14:19 Alfred Hooker PA is PHCP. 14:19 Alfred Baldwin MD is Attending Physician. cp 14:30 Patient has correct armband on for positive identification. Bed in low position. Call aa5 light in reach. Side rails up X 1. 14:38 Francisca Bloom, RN is Primary Nurse. aa5 14:45 Initial lab(s) drawn, by me, sent to lab. Inserted saline lock: 20 gauge in right aa5 forearm, using aseptic technique. Blood collected. 16:00 No provider procedures requiring assistance completed. IV discontinued, intact, aa5 bleeding controlled, No redness/swelling at site. Pressure dressing applied. Administered Medications: No medications were administered Point of Care Testing: Blood Glucose: 14:45 Blood Glucose: 107 mg/dL; aa5 Ranges: Outcome: 15:49 Discharge ordered by . cp 16:00 Discharged to home ambulatory. aa5 16:00 Condition: stable 16:00 Discharge instructions given to patient, Instructed on discharge instructions, follow up and referral plans. importance of glucose monitoring Demonstrated understanding of instructions, follow-up care, importance of glucose monitoring 16:06 Patient left the ED. aa5 Signatures: Fabian Garcia RN RN Francisca Bloom, RN RN aaAlfred Yoo PA PA cp Moreno, Amanda am2
[2019-06-22 15:51] LABS: Urine Blood NEGATIVE (NEG); Urine Glucose NEGATIVE (NEG); Urine Protein NEGATIVE (NEG); Urine Specific Gravity 1.015 (1.005-1.030); Urine pH 5.5 (5.0-7.0)
[2019-06-22 16:15] VITALS: BP 146/86; TEMP 98.6; O2SAT 100
== END 2019-06-22 16:06 | disposition home or self-care (01) ==
LOC: ER 13:34
DX: R53.83 Other fatigue (principal); I10 Essential (primary) hypertension; E11.8 Type 2 diabetes mellitus with unspecified complications; Z88.2 Allergy status to sulfonamides
CPT/HCPCS: 36415; 80048; 81003; 82947; 85025; 99283

== ENCOUNTER 2019-07-27 20:31 | Emergency (ER) | payer OTHER ==
--- NOTE | 2019-07-27 21:39 | EDPHYS ---
Physician Documentation [facility] Name: Claudio Calero Age: 58 yrs Sex: Male : 1960 Arrival Date: 07/27/2019 Time: 20:36 Bed 17 Private MD: ED Physician Ger Urban HPI: 07/27 21:31 This 58 yrs old Male presents to ER via Ambulatory with complaints of Unable rn to breathe when sleeping, feel like choking. 21:31 The patient has shortness of breath while laying down and after eating. Onset: The rn symptoms/episode began/occurred at an unknown time. Duration: The symptoms are intermittent. The patient's shortness of breath is aggravated by supine position. Severity of symptoms: At their worst the symptoms were mild in the emergency department the symptoms are unchanged. The patient has experienced similar episodes in the past. Reports hx of acid reflux, has known hiatal hernia, recently had EGD, no cancer, takes antacids irregularly. Reports after eating and laying down feels acid up into chest, feels pain, and can't breathe, has to sit up and goes away. No chest pain or dyspnea with exertion. Recently had heart checked and told was ok. No fever. Has been going on for more than a year. . Historical: - Allergies: 20:59 Sulfa (Sulfonamide Antibiotics); ca1 - Home Meds: 20:59 lisinopril 10 mg Oral tab 1 tab once daily [Active]; omeprazole 20 mg Oral cpDR 1 cap ca1 once daily [Active]; metformin 500 mg Oral Tb24 1 tab once daily [Active]; - PMHx: 20:59 Diabetes - NIDDM; GERD; Gout; Hernia; Hypertension; Pre-Diabetes; ca1 - PSHx: 20:59 right rotator cuff; ca1 - Immunization history:: Adult Immunizations up to date, Flu vaccine is not up to date. - Coronavirus screen:: The patient has NOT traveled to [place] in the past 14 days. The patient has NOT had contact with known/suspected case of Coronavirus?. - Social history:: Smoking status: Patient denies any tobacco usage or history of. - Family history:: not pertinent. - Ebola Screening: : Patient negative for fever greater than or equal to 101.5 degrees Fahrenheit, and additional compatible Ebola Virus Disease symptoms Patient denies exposure to infectious person Patient denies travel to an Ebola-affected area in the 21 days before illness onset No symptoms or risks identified at this time. - Hospitalizations: : No recent hospitalization is reported. ROS: 21:31 Constitutional: Negative for fever, chills, and weight loss, Eyes: Negative for injury, rn pain, redness, and discharge, Neck: Negative for injury, pain, and swelling, Cardiovascular: Negative for palpitations, and edema, Respiratory: Negative for cough, wheezing, and pleuritic chest pain, Abdomen/GI: Negative for abdominal pain, nausea, vomiting, diarrhea, and constipation, MS/Extremity: Negative for injury and deformity, Skin: Negative for injury, rash, and discoloration, Neuro: Negative for headache, weakness, numbness, tingling, and seizure. Exam: 21:31 Constitutional: Overweight male, no acute distress Head/Face: Normocephalic, rn atraumatic. Eyes: Pupils equal round and reactive to light, extra-ocular motions intact. Lids and lashes normal. Conjunctiva and sclera are non-icteric and not injected. Cornea within normal limits. Periorbital areas with no swelling, redness, or edema. Cardiovascular: Regular rate and rhythm. No pulse deficits. Respiratory: Lungs have equal breath sounds bilaterally, clear to auscultation. No increased work of breathing, no retractions or nasal flaring. Abdomen/GI: soft, non-tender MS/ Extremity: Pulses equal, no cyanosis. Neurovascular intact. Full, normal range of motion. Equal circumference. Neuro: Awake and alert, GCS 15, oriented to person, place, time, and situation. Cranial nerves II-XII grossly intact. Motor strength 5/5 in all extremities. Sensory grossly intact. Cerebellar exam normal. Normal gait. 21:31 ECG was reviewed by the Attending Physician. Vital Signs: 20:59 BP 137 / 87; Pulse 97; Resp 16 S; Temp 97.8(O); Pulse Ox 98% on R/A; Weight 129.27 kg ca1 (R); Height 5 ft. 8 in. (172.72 cm) (R); 20:59 Body Mass Index 43.33 (129.27 kg, 172.72 cm) ca1 MDM: 21:02 Patient medically screened. rn 21:31 Differential diagnosis: acid reflux, GERD. Data reviewed: vital signs, nurses notes, rn EKG, and as a result, I will discharge patient. Counseling: I had a detailed discussion with the patient and/or guardian regarding: the historical points, exam findings, and any diagnostic results supporting the discharge/admit diagnosis, the need for outpatient follow up, to return to the emergency department if symptoms worsen or persist or if there are any questions or concerns that arise at home. Special discussion: I discussed with the patient/guardian in detail that at this point there is no indication for admission to the hospital. It is understood, however, that if the symptoms persist or worsen the patient needs to return immediately for re-evaluation. Based on the history and exam findings, there is no indication for further emergent testing or inpatient evaluation. I discussed with the patient/guardian the need to see the engine repairer production for further evaluation of the symptoms. ED course: Had very long conversation with patient, symptoms seem to originate from acid reflux/hiatal hernia, instructed him to take his antacid more regularly, use the wedge pillow [facility] prescribed, and use maalox/tums when really bad. Told by surgeon to lose weight before hiatal hernia repair. ECG normal. . EC:31 Rate is 59 beats/min. Rhythm is regular. QRS [place] is Normal. CT interval is normal. QRS rn interval is normal. QT interval is normal. No Q waves. T waves are Normal. No ST changes noted. Clinical impression: Normal ECG. Interpreted by me. Reviewed by me. Administered Medications: No medications were administered Disposition: 07/27/19 21:38 Discharged to Home. Impression: Gastro-esophageal reflux disease. - Condition is Stable. - Discharge Instructions: Gastroesophageal Reflux Disease, Adult. - Medication Reconciliation Form, Thank You Letter, Antibiotic Education, Prescription Opioid Use form. - Follow up: Private Physician; When: As needed; Reason: Recheck today's complaints, Re-evaluation by your physician. - Problem is new. - Symptoms have improved. Signatures: Ger Urban MD MD rn Habalo, Winsy wh Acob, Cheryl, RN RN ca1 Corrections: (The following items were deleted from the chart) 21:52 21:38 07/27/2019 21:38 Discharged to Home. Impression: Gastro-esophageal reflux wh disease. Condition is Stable. Forms are Medication Reconciliation Form, Thank You Letter, Antibiotic Education, Prescription Opioid Use. Follow up: Private Physician; When: As needed; Reason: Recheck today's complaints, Re-evaluation by your physician. Problem is new. Symptoms have improved. rn
--- NOTE | 2019-07-27 21:39 | ER ---
Nurse's Notes [facility] Name: Claudio Calero Age: 58 yrs Sex: Male : 1960 Arrival Date: 07/27/2019 Time: 20:36 Bed 17 Private MD: Diagnosis: Gastro-esophageal reflux disease Presentation: 07/27 20:52 Presenting complaint: Patient states: I have a deviated septum since and a hiatal ca1 hernia. I don't know which once causes the difficulty breathing after I eat, when I sleep even when I am on the CPAP. I take all my meds and sprays, but I'm still having trouble. Transition of care: patient was not received from another setting of care. Onset of symptoms was July 27, 2019. Risk Assessment: Do you want to hurt yourself or someone else? Patient reports no desire to harm self or others. Initial Sepsis Screen: Does the patient meet any 2 criteria? No. Patient's initial sepsis screen is negative. Does the patient have a suspected source of infection? No. Patient's initial sepsis screen is negative. Care prior to arrival: None. 20:52 Method Of Arrival: Ambulatory ca1 20:52 Acuity: EVELYN 3 ca1 Historical: - Allergies: 20:59 Sulfa (Sulfonamide Antibiotics); ca1 - Home Meds: 20:59 lisinopril 10 mg Oral tab 1 tab once daily [Active]; omeprazole 20 mg Oral cpDR 1 cap ca1 once daily [Active]; metformin 500 mg Oral Tb24 1 tab once daily [Active]; - PMHx: 20:59 Diabetes - NIDDM; GERD; Gout; Hernia; Hypertension; Pre-Diabetes; ca1 - PSHx: 20:59 right rotator cuff; ca1 - Immunization history:: Adult Immunizations up to date, Flu vaccine is not up to date. - Coronavirus screen:: The patient has NOT traveled to [place] in the past 14 days. The patient has NOT had contact with known/suspected case of Coronavirus?. - Social history:: Smoking status: Patient denies any tobacco usage or history of. - Family history:: not pertinent. - Ebola Screening: : Patient negative for fever greater than or equal to 101.5 degrees Fahrenheit, and additional compatible Ebola Virus Disease symptoms Patient denies exposure to infectious person Patient denies travel to an Ebola-affected area in the 21 days before illness onset No symptoms or risks identified at this time. - Hospitalizations: : No recent hospitalization is reported. Screenin:10 Abuse screen: Denies threats or abuse. Denies injuries from another. Nutritional wh screening: No deficits noted. Tuberculosis screening: No symptoms or risk factors identified. Fall Risk None identified. Assessment: 21:10 General: Appears in no apparent distress. Behavior is calm, cooperative, appropriate wh for age. Pain: Denies pain. Neuro: Level of Consciousness is awake, alert, obeys commands, Oriented to person, place, time, situation, Appropriate for age. Cardiovascular: Heart tones S1 S2. Respiratory: Airway is patent Respiratory effort is even, unlabored, Respiratory pattern is regular, symmetrical, Breath sounds are clear bilaterally. GI: Abdomen is round non-distended. : No signs and/or symptoms were reported regarding the genitourinary system. EENT: No signs and/or symptoms were reported regarding the EENT system. Derm: Skin is intact, is healthy with good turgor, Skin is pink, warm \T\ dry. normal. Musculoskeletal: Circulation, motion, and sensation intact. Vital Signs: 20:59 BP 137 / 87; Pulse 97; Resp 16 S; Temp 97.8(O); Pulse Ox 98% on R/A; Weight 129.27 kg ca1 (R); Height 5 ft. 8 in. (172.72 cm) (R); 20:59 Body Mass Index 43.33 (129.27 kg, 172.72 cm) ca1 ED Course: 20:36 Patient arrived in ED. ag3 20:56 Triage completed. ca1 21:00 Arm band placed on right wrist. ca1 21:02 Ger Urban MD is Attending Physician. rn 21:02 Juan Roberts is Primary Nurse. wh 21:10 Patient has correct armband on for positive identification. Bed in low position. Call light in reach. Side rails up X 1. Pulse ox on. NIBP on. 21:52 No provider procedures requiring assistance completed. Patient did not have IV access wh during this emergency room visit. Administered Medications: No medications were administered Outcome: 21:38 Discharge ordered by . rn 21:52 Discharged to home ambulatory. 21:52 Condition: stable 21:52 Discharge instructions given to patient, Instructed on discharge instructions, follow up and referral plans. POC Demonstrated understanding of instructions, follow-up care, POC 21:52 Patient left the ED. Signatures: Ger Urban MD MD rn Habalo, Yanna Torres ag3 Paige Lozano RN RN ca1
--- NOTE | 2019-07-28 13:36 | EKG ---
Test Date: 2019-07-27 Test Time: 21:07:16 [employer] Machine Operator: YURY MEASUREMENT RESULTS: Intervals: Rate: 70 LA: 180 QRSD: 80 QT: 396 QTc: 427 [place]: P: 33 LA: 180 QRS: 55 T: 29 INTERPRETIVE STATEMENTS: Normal sinus rhythm Normal ECG Compared to ECG 07/14/2019 16:56:25 No significant changes Electronically Signed On 07-28-19 13:35:15 LIGHTING EQUIPMENT OPERATOR by Titi Khan
== END 2019-07-27 21:52 | disposition home or self-care (01) ==
LOC: ER 20:31
DX: K21.9 Gastro-esophageal reflux disease without esophagitis (principal); Z88.2 Allergy status to sulfonamides; I10 Essential (primary) hypertension; E11.9 Type 2 diabetes mellitus without complications
CPT/HCPCS: 93005; 99283

== ENCOUNTER 2019-07-30 13:57 | Emergency (ER) | payer OTHER ==
--- NOTE | 2019-07-30 14:32 | RAD REPORT ---
EXAM DESCRIPTION: Carmen Single View07/30/2019 2:25 pm CLINICAL HISTORY: sob COMPARISON: June 2019 FINDINGS: The lungs appear clear of acute infiltrate. The heart is normal size IMPRESSION: No acute abnormalities displayed
[2019-07-30 15:13] LABS: Protime INR 0.97
[2019-07-30] MEDS ORDERED: NA CHLORIDE 0.9% 1,000 ML ONE (15:13)
[2019-07-30 15:16] LABS: Absolute Lymphocytes (CBC) 1.8 K/uL (0.7-4.9); Basophils % 1.1 % (0-1.3); Hematocrit 43.8 % (39.6-49.0); Lymphocytes % 29.8 % (15.3-44.8); MPV 8.6 fL (7.6-11.3); RBC Red Blood Cell Count 5.18 M/uL (4.33-5.43)
[2019-07-30 15:33] LABS: ALT/SGPT 34 U/L (12-78); AST/SGOT 21 U/L (15-37); Albumin 3.5 g/dL (3.4-5.0); Alkaline Phosphatase 74 U/L (45-117); BUN Blood Urea Nitrogen 14 mg/dL (7-18); Bicarbonate 29 mmol/L (21-32); Bilirubin Direct 0.1 mg/dL (0-0.2); Bilirubin Total 0.3 mg/dL (0.2-1.0); Glucose Level 112 mg/dL (74-106); Magnesium 1.9 mg/dL (1.8-2.4); NT PRO-BNP 32 pg/mL (<125); Potassium 3.9 mmol/L (3.5-5.1); Protein, Total 6.9 g/dL (6.4-8.2); Sodium Level 141 mmol/L (136-145); Troponin (Emerg Dept Use Only) < 0.02 ng/mL (0.0-0.045)
--- NOTE | 2019-07-30 15:38 | ER ---
Nurse's Notes [facility] Name: Claudio Calero Age: 58 yrs Sex: Male : 1960 Arrival Date: 07/30/2019 Time: 14:09 Bed 17 Private MD: Diagnosis: Gastro-esophageal reflux disease;Congenital hiatus hernia;Obesity, unspecified;Dyspnea Presentation: 07/30 14:19 Presenting complaint: Patient states: Please see full assessment. Transition of care: ae4 patient was not received from another setting of care. Onset of symptoms was July 30, 2019 at 08:00. Risk Assessment: Do you want to hurt yourself or someone else? Patient reports no desire to harm self or others. Initial Sepsis Screen: Does the patient meet any 2 criteria? No. Patient's initial sepsis screen is negative. Does the patient have a suspected source of infection? No. Patient's initial sepsis screen is negative. Care prior to arrival: EMS reports V/S WNL. 14:19 Method Of Arrival: EMS ae4 14:19 Acuity: EVELYN 3 ae4 Triage Assessment: 14:10 General: Appears in no apparent distress. comfortable, obese, Behavior is calm, ae4 cooperative. General: Patient states he had "a hard time breathing earlier today" Patient states he has a "hiatal hernia and a deviated septum and I was wondering if there was a way you could tell me if it is getting worse.". Pain: Denies pain. EENT: Wears glasses. Neuro: Level of Consciousness is awake, alert, obeys commands, Oriented to person, place, situation. Cardiovascular: Heart tones S1 S2 present Rhythm is regular. Respiratory: Reports He had an "episode earlier" Onset: The symptoms/episode began/occurred suddenly, the patient has mild shortness of breath. GI: Patient states "Last week, there was one time I felt nauseous.". : No signs and/or symptoms were reported regarding the genitourinary system. Derm: Skin is normal. Musculoskeletal: Reports pain in epigastric area. Historical: - Allergies: 14:23 Sulfa (Sulfonamide Antibiotics); ae4 - Home Meds: 14:23 lisinopril 10 mg Oral tab 1 tab once daily [Active]; metformin 500 mg Oral Tb24 1 tab ae4 once daily [Active]; omeprazole 20 mg Oral cpDR 1 cap once daily [Active]; - PMHx: 14:23 Diabetes - NIDDM; GERD; Gout; Hernia; Hypertension; Pre-Diabetes; deviated septum; ae4 - PSHx: 14:23 shoulder sx; ae4 - Immunization history:: Adult Immunizations up to date. - Coronavirus screen:: The patient has NOT traveled to [place] in the past 14 days. - Social history:: Smoking status: Patient reports the use of cigarette tobacco products, Patient denies any tobacco usage or history of. - Ebola Screening: : Patient negative for fever greater than or equal to 101.5 degrees Fahrenheit, and additional compatible Ebola Virus Disease symptoms Patient denies exposure to infectious person Patient denies travel to an Ebola-affected area in the 21 days before illness onset No symptoms or risks identified at this time. Screenin:22 Abuse screen: Denies threats or abuse. Nutritional screening: No deficits noted. ae4 Tuberculosis screening: No symptoms or risk factors identified. Fall Risk None identified. Assessment: 14:24 Respiratory: Airway is patent Respiratory effort is even, unlabored, Breath sounds are ae4 clear bilaterally. 14:24 Neuro: Level of Consciousness is awake, alert, obeys commands. Cardiovascular: Heart ae4 tones S1 S2 present Patient's skin is warm and dry. Cardiovascular: Rhythm is regular. 15:00 Reassessment: Patient appears in no apparent distress at this time. No changes from ae4 previously documented assessment. Patient and/or family updated on plan of care and expected duration. Pain level reassessed. Vital Signs: 14:10 BP 155 / 83; Pulse 76; Resp 19; Pulse Ox 96% on R/A; ae4 15:22 Temp 98.6(O); ae4 ED Course: 14:09 Patient arrived in ED. ae4 14:10 Alfred Baldwin MD is Attending Physician. [facility] 14:21 Triage completed. ae4 14:24 Sandor Mcallister, VIVIENNE is Primary Nurse. ae4 14:24 Bed in low position. Call light in reach. Side rails up X 1. Pulse ox on. NIBP on. ae4 14:24 Arm band placed on right wrist. ae4 15:05 Inserted saline lock: 20 gauge in right antecubital area, using aseptic technique. ae4 Blood collected. 15:37 Veronika Samuel MD is Referral Physician. yamil 15:37 Emerson Najera MD is Referral Physician. yamil 16:00 No provider procedures requiring assistance completed. IV discontinued, intact, ae4 bleeding controlled, No redness/swelling at site. Pressure dressing applied. Administered Medications: 15:21 Drug: NS 0.9% 1000 ml Route: IV; Rate: 125 ml/hr; Site: right antecubital; ae4 16:21 Follow up: IV Status: Order to discontinue infusion; IV Intake: 300ml ae4 Intake: 16:21 IV: 300ml; Total: 300ml. ae4 Outcome: 15:37 Discharge ordered by . yamil 16:00 Discharged to home ambulatory. ae4 16:00 Condition: stable 16:00 Discharge instructions given to patient, Instructed on discharge instructions, the need for admit, Demonstrated understanding of instructions. 16:01 Patient left the ED. ae4 Signatures: Alfred Baldwin MD MD cha Elliott, Andrea RN RN ae4 Corrections: (The following items were deleted from the chart) 16:23 14:24 Respiratory: Airway is patent Respiratory effort is even, unlabored, Breath ae4 sounds are clear bilaterally. ae4
--- NOTE | 2019-07-30 15:39 | EDPHYS ---
Physician Documentation [facility] Name: Claudio Calero Age: 58 yrs Sex: Male : 1960 Arrival Date: 07/30/2019 Time: 14:09 Bed 17 Private MD: ED Physician Alfred Baldwin HPI: 07/30 14:33 This 58 yrs old Male presents to ER via EMS with complaints of Breathing yamil Difficulty. 14:33 The patient has shortness of breath at rest. Onset: The symptoms/episode began/occurred yamil this morning. Duration: The symptoms are intermittent, with no pattern. The patient's shortness of breath has no apparent modifying factors. Associated signs and symptoms: The patient has no apparent associated signs or symptoms. The patient has experienced similar episodes in the past, multiple times. Historical: - Allergies: 14:23 Sulfa (Sulfonamide Antibiotics); ae4 - Home Meds: 14:23 lisinopril 10 mg Oral tab 1 tab once daily [Active]; metformin 500 mg Oral Tb24 1 tab ae4 once daily [Active]; omeprazole 20 mg Oral cpDR 1 cap once daily [Active]; - PMHx: 14:23 Diabetes - NIDDM; GERD; Gout; Hernia; Hypertension; Pre-Diabetes; deviated septum; ae4 - PSHx: 14:23 shoulder sx; ae4 - Immunization history:: Adult Immunizations up to date. - Coronavirus screen:: The patient has NOT traveled to [place] in the past 14 days. - Social history:: Smoking status: Patient reports the use of cigarette tobacco products, Patient denies any tobacco usage or history of. - Ebola Screening: : Patient negative for fever greater than or equal to 101.5 degrees Fahrenheit, and additional compatible Ebola Virus Disease symptoms Patient denies exposure to infectious person Patient denies travel to an Ebola-affected area in the 21 days before illness onset No symptoms or risks identified at this time. ROS: 14:34 Constitutional: Negative for fever, chills, and weight loss, Eyes: Negative for injury, yamil pain, redness, and discharge, ENT: Negative for injury, pain, and discharge, Neck: Negative for injury, pain, and swelling, Cardiovascular: Negative for chest pain, palpitations, and edema, Abdomen/GI: Negative for abdominal pain, nausea, vomiting, diarrhea, and constipation, Back: Negative for injury and pain, : Negative for injury, bleeding, discharge, and swelling, MS/Extremity: Negative for injury and deformity, Skin: Negative for injury, rash, and discoloration, Neuro: Negative for headache, weakness, numbness, tingling, and seizure, Psych: Negative for depression, anxiety, suicide ideation, homicidal ideation, and hallucinations, Allergy/Immunology: Negative for hives, rash, and allergies, Endocrine: Negative for neck swelling, polydipsia, polyuria, polyphagia, and marked weight changes, Hematologic/Lymphatic: Negative for swollen nodes, abnormal bleeding, and unusual bruising. 14:34 Respiratory: Positive for shortness of breath, at rest. Exam: 14:34 Constitutional: This is a well developed, well nourished patient who is awake, alert, yamil and in no acute distress. Head/Face: Normocephalic, atraumatic. Eyes: Pupils equal round and reactive to light, extra-ocular motions intact. Lids and lashes normal. Conjunctiva and sclera are non-icteric and not injected. Cornea within normal limits. Periorbital areas with no swelling, redness, or edema. ENT: Nares patent. No nasal discharge, no septal abnormalities noted. Tympanic membranes are normal and external auditory canals are clear. Oropharynx with no redness, swelling, or masses, exudates, or evidence of obstruction, uvula midline. Mucous membranes moist. Neck: Trachea midline, no thyromegaly or masses palpated, and no cervical lymphadenopathy. Supple, full range of motion without nuchal rigidity, or vertebral point tenderness. No Meningismus. Chest/axilla: Normal chest wall appearance and motion. Nontender with no deformity. No lesions are appreciated. Cardiovascular: Regular rate and rhythm with a normal S1 and S2. No gallops, murmurs, or rubs. Normal PMI, no JVD. No pulse deficits. Respiratory: Lungs have equal breath sounds bilaterally, clear to auscultation and percussion. No rales, rhonchi or wheezes noted. No increased work of breathing, no retractions or nasal flaring. Abdomen/GI: Soft, non-tender, with normal bowel sounds. No distension or tympany. No guarding or rebound. No evidence of tenderness throughout. Back: No spinal tenderness. No costovertebral tenderness. Full range of motion. Male : Normal genitalia with no discharge or lesions. Skin: Warm, dry with normal turgor. Normal color with no rashes, no lesions, and no evidence of cellulitis. MS/ Extremity: Pulses equal, no cyanosis. Neurovascular intact. Full, normal range of motion. Neuro: Awake and alert, GCS 15, oriented to person, place, time, and situation. Cranial nerves II-XII grossly intact. Motor strength 5/5 in all extremities. Sensory grossly intact. Cerebellar exam normal. Normal gait. Psych: Awake, alert, with orientation to person, place and time. Behavior, mood, and affect are within normal limits. 14:34 Musculoskeletal/extremity: DVT Exam: No signs of deep vein thrombosis. no pain, no swelling, no tenderness, negative Homans' sign noted on exam, no appreciated bluish discoloration, no erythema, no increased warmth. 15:37 Cardiovascular: Rate: normal, Rhythm: regular, Pulses: Pulses are 4+ in bilateral yamil radial, brachial, femoral, popliteal, posterior tibial and and dorsalis pedis arteries.. Heart sounds: normal, normal S1and S2, no S3 or S4, no murmur, no rub, no gallop, Edema: is not appreciated, JVD: is not appreciated. Vital Signs: 14:10 BP 155 / 83; Pulse 76; Resp 19; Pulse Ox 96% on R/A; ae4 15:22 Temp 98.6(O); ae4 MDM: 14:11 Patient medically screened. [facility] 14:35 Data reviewed: vital signs, nurses notes, lab test result(s), EKG, radiologic studies, [facility] plain films. 07/30 14:12 Order name: Basic Metabolic Panel [facility] 07/30 14:12 Order name: CBC with Diff [facility] 07/30 14:12 Order name: LFT's [facility] 07/30 14:12 Order name: Magnesium [facility] 07/30 14:12 Order name: NT PRO-BNP [facility] 07/30 14:12 Order name: PT-INR [facility] 07/30 14:12 Order name: Troponin (emerg Dept Use Only) [facility] 07/30 14:12 Order name: Blood Culture Adult (2) [facility] 07/30 15:27 Order name: Protime (+INR); Complete Time: 15:35 EDMS 07/30 15:27 Order name: CBC with Automated Diff; Complete Time: 15:35 EDDC 07/30 15:34 Order name: Basic Metabolic Panel; Complete Time: 15:35 [facility] 07/30 15:34 Order name: Liver (Hepatic) Function; Complete Time: 15:35 [facility] 07/30 15:34 Order name: Troponin (Emerg Dept Use Only); Complete Time: 15:35 [facility] 07/30 14:12 Order name: XRAY Chest (1 view) [facility] 07/30 14:12 Order name: Cardiac monitoring; Complete Time: 15:04 [facility] 07/30 14:12 Order name: EKG - Nurse/Tech; Complete Time: 15:22 [facility] 07/30 14:12 Order name: IV Saline Lock; Complete Time: 15:04 [facility] 07/30 14:12 Order name: Labs collected and sent; Complete Time: 15:04 [facility] 07/30 14:12 Order name: O2 Per Protocol; Complete Time: 15:04 [facility] 07/30 14:12 Order name: O2 Sat Monitoring; Complete Time: 15:04 [facility] 07/30 14:12 Order name: Urine Dipstick-Ancillary (obtain specimen) [facility] 07/30 15:03 Order name: RAD; Complete Time: 15:35 EDDC 07/30 15:34 Order name: NT PRO-BNP; Complete Time: 15:35 [facility] 07/30 15:34 Order name: Magnesium; Complete Time: 15:35 EDMS Administered Medications: 15:21 Drug: NS 0.9% 1000 ml Route: IV; Rate: 125 ml/hr; Site: right antecubital; ae4 16:21 Follow up: IV Status: Order to discontinue infusion; IV Intake: 300ml ae4 Disposition: 07/30/19 15:37 Discharged to Home. Impression: Gastro-esophageal reflux disease, Congenital hiatus hernia, Obesity, unspecified, Dyspnea. - Condition is Stable. - Discharge Instructions: Type 2 Diabetes Mellitus, Diagnosis, Adult, Hiatal Hernia, Shortness of Breath, Shortness of Breath, Yqxa-ap-[id number], Aspirin and Your Heart, Type 2 Diabetes Mellitus, Diagnosis, Adult, Qpte-pi-Alhu, Obesity, Adult, [id number], Type 2 Diabetes Mellitus, Self Care, Adult, Type 2 Diabetes Mellitus, Self Care, Adult, Hkjh-xn-[id number]. - Medication Reconciliation Form, Thank You Letter, Antibiotic Education, Prescription Opioid Use form. - Follow up: Private Physician; When: 2 - 3 days; Reason: Recheck today's complaints, Continuance of care, Re-evaluation by your physician. Follow up: Veronika Samuel; When: 2 - 3 days; Reason: Recheck today's complaints, Re-evaluation by your physician. Follow up: Emerson Najera; When: 2 - 3 days; Reason: Recheck today's complaints, Continuance of care, Re-evaluation by your physician. - Problem is new. - Symptoms have improved. Signatures: Dispatcher [employer] EDMS Alfred Baldwin MD MD cha Elliott, Andrea, RN RN ae4 Corrections: (The following items were deleted from the chart) 15:38 15:37 07/30/2019 15:37 Discharged to Home. Impression: Gastro-esophageal reflux yamil disease; Congenital hiatus hernia; Obesity, unspecified. Condition is Stable. Discharge Instructions: Type 2 Diabetes Mellitus, Diagnosis, Adult, Hiatal Hernia, Type 2 Diabetes Mellitus, Diagnosis, Adult, Ohxm-qa-Kipt, Obesity, Adult, Boeu-th-[id number], Type 2 Diabetes Mellitus, Self Care, Adult, Type 2 Diabetes Mellitus, Self Care, Adult, [id number]-uq-Hisd. Forms are Medication Reconciliation Form, Thank You Letter, Antibiotic Education, Prescription Opioid Use. Follow up: Private Physician; When: 2 - 3 days; Reason: Recheck today's complaints, Continuance of care, Re-evaluation by your physician. Follow up: Veronika Samuel; When: 2 - 3 days; Reason: Recheck today's complaints, Re-evaluation by your physician. Follow up: Emerson Najera; When: 2 - 3 days; Reason: Recheck today's complaints, Continuance of care, Re-evaluation by your physician. Problem is new. Symptoms have improved. [facility] 16: 15:38 07/30/2019 15:37 Discharged to Home. Impression: Gastro-esophageal reflux ae4 disease; Congenital hiatus hernia; Obesity, unspecified; Dyspnea. Condition is Stable. Discharge Instructions: Type 2 Diabetes Mellitus, Diagnosis, Adult, Hiatal Hernia, Type 2 Diabetes Mellitus, Diagnosis, Adult, Kxvt-cl-Girg, Obesity, Adult, Jayl-em-Hiqr, Type 2 Diabetes Mellitus, Self Care, Adult, Type 2 Diabetes Mellitus, Self Care, Adult, Xpca-ed-Kaga. Forms are Medication Reconciliation Form, Thank You Letter, Antibiotic Education, Prescription Opioid Use. Follow up: Private Physician; When: 2 - 3 days; Reason: Recheck today's complaints, Continuance of care, Re-evaluation by your physician. Follow up: Veronika Samuel; When: 2 - 3 days; Reason: Recheck today's complaints, Re-evaluation by your physician. Follow up: Emerson Najera; When: 2 - 3 days; Reason: Recheck today's complaints, Continuance of care, Re-evaluation by your physician. Problem is new. Symptoms have improved. yamil
[2019-07-30 16:25] VITALS: BP 155/83; O2SAT 96
[2019-07-30 16:26] VITALS: TEMP 98.6
== END 2019-07-30 16:01 | disposition home or self-care (01) ==
LOC: ER 13:57
DX: K21.9 Gastro-esophageal reflux disease without esophagitis (principal); Q40.1 Congenital hiatus hernia; E66.9 Obesity, unspecified; I10 Essential (primary) hypertension; E11.9 Type 2 diabetes mellitus without complications; Z72.0 Tobacco use; Z88.2 Allergy status to sulfonamides
CPT/HCPCS: 85025; 80048; 36415; 83735; 85610; 80076; 84484; 83880; 71045; 96360; 99284; J7030

== ENCOUNTER 2019-08-13 23:32 | Emergency (ER) | payer OTHER ==
[2019-08-14] MEDS ORDERED: MAGNESIUM CITRATE 300 ML BOT ONE (02:31)
--- NOTE | 2019-08-14 03:51 | ER ---
Nurse's Notes [facility] Name: Claudio Calero Age: 58 yrs Sex: Male : 1960 Arrival Date: 08/13/2019 Time: 23:33 Bed 15 Private MD: Diagnosis: Swelling left leg Presentation: 08/13 00:46 Chief complaint: Patient states: he started having left leg swelling several days ago bb but he walked 4 miles today. Coronavirus screen: The patient has NOT traveled to [place] in the past 14 days. Proceed with normal triage procedures. Ebola Screen: No symptoms or risks identified at this time. Initial Sepsis Screen: Does the patient meet any 2 criteria? No. Patient's initial sepsis screen is negative. Does the patient have a suspected source of infection? No. Patient's initial sepsis screen is negative. Risk Assessment: Do you want to hurt yourself or someone else? Patient reports no desire to harm self or others. 00:46 Method Of Arrival: Ambulatory bb 00:46 Acuity: EVELYN 4 bb 00:46 Onset of symptoms was August 11, 2019. bb Historical: - Allergies: 00:50 Sulfa (Sulfonamide Antibiotics); bb - Home Meds: 00:50 lisinopril 10 mg Oral tab 1 tab once daily [Active]; metformin 500 mg Oral Tb24 1 tab bb once daily [Active]; omeprazole 20 mg Oral cpDR 1 cap once daily [Active]; - PMHx: 00:50 deviated septum; Diabetes - NIDDM; GERD; Gout; Hernia; Hypertension; bb - PSHx: 00:50 shoulder sx; Knee surgery; bb - Immunization history:: Adult Immunizations up to date. - Social history:: Smoking status: Patient denies any tobacco usage or history of. Screenin:45 Abuse screen: Denies threats or abuse. Denies injuries from another. Nutritional mg2 screening: No deficits noted. Tuberculosis screening: No symptoms or risk factors identified. Fall Risk None identified. Assessment: 02:44 General: Appears in no apparent distress. comfortable, Behavior is calm, cooperative. mg2 Pain: Denies pain. Neuro: Level of Consciousness is awake, alert, obeys commands, Oriented to person, place, time, situation. Cardiovascular: Capillary refill < 3 seconds Patient's skin is warm and dry. Respiratory: Airway is patent Respiratory effort is even, unlabored, Respiratory pattern is regular, symmetrical. GI: No signs and/or symptoms were reported involving the gastrointestinal system. : No signs and/or symptoms were reported regarding the genitourinary system. EENT:. Derm: Skin is intact, is healthy with good turgor, Skin is pink, warm \T\ dry. normal. Musculoskeletal: Circulation, motion, and sensation intact. Capillary refill < 3 seconds, Swelling present in left leg. 03:30 Reassessment: Patient appears in no apparent distress at this time. Patient and/or mg2 family updated on plan of care and expected duration. Pain level reassessed. Patient is alert, oriented x 3, equal unlabored respirations, skin warm/dry/pink. Vital Signs: 00:46 BP 146 / 87; Pulse 84; Resp 16 S; Temp 98(O); Pulse Ox 97% on R/A; Weight 131.54 kg bb (R); Height 5 ft. 8 in. (172.72 cm) (R); Pain 7/10; 02:10 BP 140 / 78; Pulse 81; Resp 18; Pulse Ox 100% on R/A; mg2 03:00 BP 135 / 78; Pulse 81; Resp 18; Pulse Ox 100% on R/A; mg2 04:03 BP 140 / 80; Pulse 80; Resp 18; Temp 98; Pulse Ox 100% on R/A; mg2 00:46 Body Mass Index 44.09 (131.54 kg, 172.72 cm) bb ED Course: 08/12 23:33 Patient arrived in ED. cl3 03 00:49 Triage completed. bb 00:50 Arm band placed on Patient placed in waiting room, Patient notified of wait time. bb 01:35 Thony Mckeon MD is Attending Physician. pkl 02:21 Ten Ríso, VIVIENNE is Primary Nurse. mg2 02:45 Patient has correct armband on for positive identification. mg2 02:45 No provider procedures requiring assistance completed. Patient did not have IV access mg2 during this emergency room visit. 04:21 US Extremity Venous Unilateral Ltd In Process Unspecified. EDMS Administered Medications: 04:02 Drug: Magnesium Citrate Liquid 300 ml Route: PO; mg2 04:02 Follow up: Response: No adverse reaction; Medication administered at discharge. mg2 Outcome: 03:50 Discharge ordered by . pkl 04:04 Discharged to home ambulatory. mg2 04:04 Condition: stable 04:04 Discharge instructions given to patient, Instructed on discharge instructions, follow up and referral plans. Demonstrated understanding of instructions, follow-up care. 04:12 Patient left the ED. mg2 Signatures: Dispatcher [employer] Thony Hu MD MD pkSara Urbina RN RN bb Ten Ríos RN RN mg2 Silver Perez cl3
--- NOTE | 2019-08-14 03:51 | EDPHYS ---
Physician Documentation [facility] Name: Claudio Calero Age: 58 yrs Sex: Male : 1960 Arrival Date: 08/13/2019 Time: 23:33 Bed 15 Private MD: ED Physician Thony Mckeon HPI: 08/13 01:55 This 58 yrs old Male presents to ER via Ambulatory with complaints of Leg pkl Swelling. 01:55 The complaints affect the left leg. Onset: The symptoms/episode began/occurred 3 day(s) pkl ago. Associated signs and symptoms: The patient has no apparent associated signs or symptoms. Historical: - Allergies: 00:50 Sulfa (Sulfonamide Antibiotics); bb - Home Meds: 00:50 lisinopril 10 mg Oral tab 1 tab once daily [Active]; metformin 500 mg Oral Tb24 1 tab bb once daily [Active]; omeprazole 20 mg Oral cpDR 1 cap once daily [Active]; - PMHx: 00:50 deviated septum; Diabetes - NIDDM; GERD; Gout; Hernia; Hypertension; bb - PSHx: 00:50 shoulder sx; Knee surgery; bb - Immunization history:: Adult Immunizations up to date. - Social history:: Smoking status: Patient denies any tobacco usage or history of. ROS: 01:55 Eyes: Negative for injury, pain, redness, and discharge, ENT: Negative for injury, pkl pain, and discharge, Neck: Negative for injury, pain, and swelling, Cardiovascular: Negative for chest pain, palpitations, and edema, Respiratory: Negative for shortness of breath, cough, wheezing, and pleuritic chest pain, Abdomen/GI: Negative for abdominal pain, nausea, vomiting, diarrhea, and constipation, Back: Negative for injury and pain, : Negative for injury, bleeding, discharge, and swelling. 01:55 MS/extremity: Positive for swelling, of the left leg. 01:55 Skin: Negative for rash. 01:55 Neuro: Negative for altered mental status. Exam: 01:55 Head/Face: Normocephalic, atraumatic. Eyes: Pupils equal round and reactive to light, pkl extra-ocular motions intact. Lids and lashes normal. Conjunctiva and sclera are non-icteric and not injected. Cornea within normal limits. Periorbital areas with no swelling, redness, or edema. ENT: Nares patent. No nasal discharge, no septal abnormalities noted. Tympanic membranes are normal and external auditory canals are clear. Oropharynx with no redness, swelling, or masses, exudates, or evidence of obstruction, uvula midline. Mucous membranes moist. Neck: Trachea midline, no thyromegaly or masses palpated, and no cervical lymphadenopathy. Supple, full range of motion without nuchal rigidity, or vertebral point tenderness. No Meningismus. Chest/axilla: Normal chest wall appearance and motion. Nontender with no deformity. No lesions are appreciated. Cardiovascular: Regular rate and rhythm with a normal S1 and S2. No gallops, murmurs, or rubs. Normal PMI, no JVD. No pulse deficits. Respiratory: Lungs have equal breath sounds bilaterally, clear to auscultation and percussion. No rales, rhonchi or wheezes noted. No increased work of breathing, no retractions or nasal flaring. Abdomen/GI: Soft, non-tender, with normal bowel sounds. No distension or tympany. No guarding or rebound. No evidence of tenderness throughout. Back: No spinal tenderness. No costovertebral tenderness. Full range of motion. Skin: Warm, dry with normal turgor. Normal color with no rashes, no lesions, and no evidence of cellulitis. Neuro: Awake and alert, GCS 15, oriented to person, place, time, and situation. Cranial nerves II-XII grossly intact. Motor strength 5/5 in all extremities. Sensory grossly intact. Cerebellar exam normal. Normal gait. 01:55 Musculoskeletal/extremity: Extremities: grossly normal except: noted in the left leg: swelling. Vital Signs: 00:46 BP 146 / 87; Pulse 84; Resp 16 S; Temp 98(O); Pulse Ox 97% on R/A; Weight 131.54 kg bb (R); Height 5 ft. 8 in. (172.72 cm) (R); Pain 7/10; 02:10 BP 140 / 78; Pulse 81; Resp 18; Pulse Ox 100% on R/A; mg2 03:00 BP 135 / 78; Pulse 81; Resp 18; Pulse Ox 100% on R/A; mg2 04:03 BP 140 / 80; Pulse 80; Resp 18; Temp 98; Pulse Ox 100% on R/A; mg2 00:46 Body Mass Index 44.09 (131.54 kg, 172.72 cm) bb MDM: 01:35 Patient medically screened. pkl 03:49 Data reviewed: vital signs, nurses notes, radiologic studies, ultrasound. pkl 08/13 01:54 Order name: US Extremity Venous Unilateral Ltd pkl Administered Medications: 04:02 Drug: Magnesium Citrate Liquid 300 ml Route: PO; mg2 04:02 Follow up: Response: No adverse reaction; Medication administered at discharge. mg2 Disposition: 08/14/19 03:50 Discharged to Home. Impression: Swelling left leg. - Condition is Stable. - Medication Reconciliation Form, Thank You Letter, Antibiotic Education, Prescription Opioid Use form. - Follow up: Private Physician; When: 2 - 3 days; Reason: Re-evaluation by your physician. - Problem is new. - Symptoms are unchanged. Signatures: Dispatcher [employer] EDMS Thony Mckeon MD MD pkSara Urbina RN RN bb Ten Ríos RN RN mg2 Corrections: (The following items were deleted from the chart) 04:12 03:50 08/14/2019 03:50 Discharged to Home. Impression: Swelling left leg. Condition is mg2 Stable. Forms are Medication Reconciliation Form, Thank You Letter, Antibiotic Education, Prescription Opioid Use. Follow up: Private Physician; When: 2 - 3 days; Reason: Re-evaluation by your physician. Problem is new. Symptoms are unchanged. pkl
[2019-08-14 04:19] VITALS: O2SAT 100
[2019-08-14 04:21] VITALS: TEMP 98
[2019-08-14 04:23] VITALS: BP 140/80
--- NOTE | 2019-08-14 06:57 | RAD REPORT ---
EXAM DESCRIPTION: US - Extremity Venous Uni Ltd - 08/14/2019 4:21 am CLINICAL HISTORY: SWELLING Leg swelling and edema. COMPARISON: Extremity Venous Uni Ltd dated 06/27/2017 FINDINGS: Left lower extremity venous system was interrogated with Doppler technique. Normal flow, c ompressibility and augmentation was noted. There is no DVT present. IMPRESSION: No evidence of left lower extremity deep venous thrombosis.
== END 2019-08-14 04:12 | disposition home or self-care (01) ==
LOC: ER 23:32
DX: R22.42 Localized swelling, mass and lump, left lower limb (principal); I10 Essential (primary) hypertension; Z88.2 Allergy status to sulfonamides; E11.9 Type 2 diabetes mellitus without complications; K21.9 Gastro-esophageal reflux disease without esophagitis
CPT/HCPCS: 93971; 99283

== ENCOUNTER 2021-06-26 19:24 | Emergency (ER) | payer OTHER ==
--- OUTSIDE RECORDS SUMMARY | 2021-06-26 19:27 | XMS REPORT | Continuity of Care Document ---
:1960 Author Organization [facility] t Address [address] [place] [address] [address] [place] [address] Care Team Providers Name Role Phone TIGIST Primary Care Physician Unavailable MIGUEL ÁNGEL Attending Clinician Unavailable Doctor Unassigned, Name Attending Clinician Unavailable Miguel Ángel ESPINOZA Attending Clinician Payers Payer Name Policy Type Policy Number Effective Date Expiration Date [facility] [id number] 2021 00:00:00 Problems Condition Condition Condition Status Onset Resolution Last Treating Co mments Source Name Details Category Date Date Treatment Clinician Date No known No known Disease Unive rs active active ity of problems problems [facility] Allergies, Adverse Reactions, Alerts Allergy Allergy Status Severity Reaction(s) Onset Inactive Treating Comm ents Source Name Type Date Date Clinician NO KNOWN Drug Active Univers ALLERGIE Class ity of S [facility] Social History Social Habit Start Date Stop Date Quantity Comments Source Exposure to Not sure [facility] SARS-CoV-2 (event) Medica l Branch Sex Assigned At [birth year] [facility] 00:00:00 00:00:00 [facility] Branch Smoking Status Start Date Stop Date Source Unknown if ever smoked [facility] Medications Ordered Filled Start Stop Current Ordering Indication Dosage Frequency Signature Comments Components Source Medication Medication Date Date Medication? Clinician (SIG) Name Name triamcinolo 2020-06- No [id number] 40mg Univers ne 0-21 10-20 9109 ity of acetonide 13:00: 11:57 [place] (KENALOG) 00 :00 Medical injection Branch 40 mg triamcinolo 2020-06- No [id number] 40mg 40 mg, Univers ne 0-21 10-20 9109 Infiltrati ity of acetonide 13:00[place] :00 1 dose, On Medi chriss injection [facility] Branch 40 mg 04/03/21 at 0800, Routine No known 2020-06 No Univers medications 0-20 ity of 16:33: [address] No known 2020-06 No Univers medications 0-20 ity of 16:33: [address] No known 2020-06 No Univers medications 0-20 ity of 16:33: [address] Vital Signs Vital Name Observation Time Observation Value Comments Source Body temperature 2021-04-02 21:33:00 36.44 [facility] height 2021-04-02 21:33:00 172.7 cm [facility] Body weight 2021-04-02 21:33:00 132.904 kg [facility] BMI 2021-04-02 21:33:00 44.55 kg/m2 [facility] Procedures Procedure Date / Time Performing Clinician Source Performed AUTHORIZATION FOR 2021-06-11 06:01:00 Doctor Unassigned, No Univ ersity [facility] RELEASE OF PHI Name Medical Branch REFERRAL- 2021-05-21 06:01:00 Doctor Unassigned, No [facility] [place] REQUEST/RESPONSE Name Medical Branch REFERRAL- 2021-03-26 05:01:00 Doctor Unassigned, No [facility] [place] REQUEST/RESPONSE Name Medical Branch Encounters Start End Encounter Admission Attending Care Care Encounter Source Date/Time Date/Time Type Type Clinicians Facility Department ID 2021-07-02 2021-07-02 Outpatient R MIGUEL ÁNGEL [facility] [id number] Univers 12:50:00 12:50:00 CHUCKIE [id number] ity [facility] 2021-07-02 2021-07-02 Outpatient Jeanette DEL ROSARIO [facility] [id number] Univers 12:50:00 12:50:[facility] 2021-06-11 2021-06-11 Orders Doctor CHUCKIE [id number] Univers 00:00:00 00:00:00 Only Unassigned, MOLLY [id number] ity of [facility] [id number] [place] as [id number] [address] 2021-05-21 2021-05-21 Outpatient R FAILLACE, [facility] [id number] [id number] Univers 11:00:00 11:00:00 CHUCKIE [id number] ity [facility] 2021-05-21 2021-05-21 Outpatient R FAILLACE, [facility] [id number] Univers 11:00:00 11:00:00 CHUCKIE vicente [facility] 2021-05-21 2021-05-21 Orders Doctor CHUCKIE [id number] Univers 00:00:00 00:00:00 Only Unassigned, MOLLY [id number] ity of [facility] [id number] [place] [id number] [address] 2021-04-16 2021-04-16 Outpatient R FAILLACE, [facility] [id number] Univers 09:40:00 09:40:00 CHUCKIE [facility] 2021-04-02 2021-04-02 [facility] [id number] Univers 16:29:45 17:01:34 Visit Chuckie CHILD [id number] ity [id number] [phone] [address] 2021-04-02 2021-04-02 Outpatient FAILLACE, [facility] [id number] [id number] Univers 16:35:00 16:35:00 [facility] [id number] [facility] 2021-04-02 2021-04-02 Outpatient R FAILLACE, [facility] [id number] Univers 16:00:00 16:00:00 CHUCKIE bhakta [facility] 2021-03-26 2021-03-26 Orders Doctor CHUCKIE [id number] Univers 00:00:00 00:00:00 Only Unassigned, MOLLY [id number] ity of [facility] [id number] [place] [phone] [address] Results This patient has no known results.
--- NOTE | 2021-06-26 19:48 | ER ---
Nurse's Notes [facility] Name: Claudio Calero Age: 60 yrs Sex: Male : 1960 Arrival Date: 06/26/2021 Time: 19:27 Bed Waiting Private MD: Diagnosis: ED Course: 06/26 19:27 Patient arrived in ED. loi Administered Medications: No medications were administered Outcome: 19:47 Patient left the ED. ld1 Signatures: Trena Lowe RN RN ld1 Chandrika Davis
== END 2021-06-26 19:47 | disposition left against medical advice (07) ==
LOC: ER 19:24
DX: Z02.9 Encounter for administrative examinations, unspecified (principal)

== ENCOUNTER 2021-12-17 14:36 | Emergency (ER) | payer OTHER ==
[2021-12-17 15:24] LABS: Urine Blood Negative (Negative); Urine Glucose Negative (Negative); Urine Protein Negative (Negative); Urine Specific Gravity 1.015 (1.005-1.030); Urine pH 5.5 (5.0-7.0)
[2021-12-17 15:44] LABS: Absolute Lymphocytes (CBC) 1.2 K/uL (0.7-4.9); Hematocrit 47.2 % (39.6-49.0); Lymphocytes % 18.8 % (15.3-44.8); MCV 85.1 fL (80-100); MPV 8.3 fL (7.6-11.3); RBC Red Blood Cell Count 5.55 M/uL (4.33-5.43)
--- NOTE | 2021-12-17 15:48 | RAD REPORT ---
EXAM DESCRIPTION: RAD - Chest Single View - 12/17/2021 3:38 pm CLINICAL HISTORY: right medial scapula pain Chest pain. COMPARISON: Chest Single View dated 07/30/2019; Chest Single View dated 07/14/2019; Chest Single View dated 03/27/2019; Chest Single View dated 01/17/2019 FINDINGS: Portable technique limits examination quality. The lungs are grossly clear. The heart is normal in size. No displaced fractures. IMPRESSION: No acute intrathoracic process suspected.
[2021-12-17 15:56] LABS: Protime INR 0.97
[2021-12-17 16:00] LABS: Urine Bacteria <20 /HPF (NONE SEEN); Urine RBC <5 /HPF (NONE SEEN)
[2021-12-17 16:02] LABS: Bilirubin Direct 0.2 mg/dL (0-0.2); Bilirubin Total 0.6 mg/dL (0.2-1.0); Magnesium 1.7 mg/dL (1.8-2.4); Protein, Total 7.4 g/dL (6.4-8.2); Troponin High Sensitivity 4.1 pg/mL (<58.9)
--- NOTE | 2021-12-17 16:14 | RAD REPORT ---
EXAM DESCRIPTION: CT - Head Brain Wo Cont - 12/17/2021 3:58 pm CLINICAL HISTORY: Hypertensive emergency Headache, drowsiness, hypertension COMPARISON: HEAD BRAIN W O CONTRAST dated 06/27/2015 TECHNIQUE: All CT scans are performed using dose optimization technique as appropriate and may inclu de automated exposure control or mA/KV adjustment according to patient size. FINDINGS: No intracranial hemorrhage, hydrocephalus or extra-axial fluid collection.No areas of brai n edema or evidence of midline shift. The paranasal sinuses and mastoids are clear. The calvarium is intact. IMPRESSION: No acute intracranial abnormality.
[2021-12-17] MEDS ORDERED: MAGNESIUM SULFATE 1 gm IVPB 1 GM/100 ML BAG IV ONE (16:38)
--- NOTE | 2021-12-17 18:09 | ER ---
Nurse's Notes [facility] Name: Claudio Calero Age: 61 yrs Sex: Male : 1960 Arrival Date: 12/17/2021 Time: 14:50 Bed 18 Private MD: Diagnosis: Headache;Hypertensive heart disease without heart failure Presentation: 12/17 14:51 Chief complaint: Patient states: high blood pressure and intermittent pressure behind kr3 Left ear. Chief complaint: EMS states: bp 167/113, blood glucose 116, 98 o2 RA. Coronavirus screen: Vaccine status: Patient reports receiving the 2nd dose of the covid vaccine. Coronavirus screen: Client denies travel out of the [place] in the last 14 days. At this time, the client does not indicate any symptoms associated with coronavirus-19. Ebola Screen: Patient denies travel to an Ebola-affected area in the 21 days before illness onset. Initial Sepsis Screen: Does the patient meet any 2 criteria? No. Patient's initial sepsis screen is negative. Does the patient have a suspected source of infection? No. Patient's initial sepsis screen is negative. Risk Assessment: Do you want to hurt yourself or someone else? Patient reports no desire to harm self or others. Onset of symptoms was December 17, 2021. 14:51 Method Of Arrival: EMS [facility] 14:51 Acuity: EVELYN 3 kr3 Triage Assessment: 15:01 Headache History: The patient has had previous headaches and this one is similar to kr3 previous episodes. General: Appears in no apparent distress. Behavior is calm, cooperative. Pain: Denies pain. Neuro: Reports headache intermittent HBP. 18:21 Pain: Also complains of. kr3 18:21 Pain:. kr3 18:24 Pain: Pain currently is 0 out of 10 on a pain scale. Pain began 4 hours ago. kr3 Historical: - Allergies: 15:00 Sulfa (Sulfonamide Antibiotics); kr3 - Home Meds: 15:00 lisinopril 10 mg Oral tab 1 tab once daily [Active]; metformin 500 mg Oral Tb24 1 tab kr3 once daily [Active]; - Immunization history:: Adult Immunizations up to date, Client reports receiving the 2nd dose of the Covid vaccine. - Social history:: Smoking status: Patient denies any tobacco usage or history of. Screenin:41 Abuse screen: Denies threats or abuse. Nutritional screening: No deficits noted. ll1 Tuberculosis screening: No symptoms or risk factors identified. Fall Risk Total Martinez Fall Scale indicates No Risk (0-24 pts). Assessment: 15:40 Reassessment: No changes from previously documented assessment. Patient and/or family ll1 updated on plan of care and expected duration. Pain level reassessed. Patient is alert, oriented x 3, equal unlabored respirations, skin warm/dry/pink. 16:40 Reassessment: No changes from previously documented assessment. Patient and/or family ll1 updated on plan of care and expected duration. Pain level reassessed. Patient is alert, oriented x 3, equal unlabored respirations, skin warm/dry/pink. 17:34 Reassessment: No changes from previously documented assessment. Patient and/or family ll1 updated on plan of care and expected duration. Pain level reassessed. Patient is alert, oriented x 3, equal unlabored respirations, skin warm/dry/pink. Patient denies pain at this time. Patient states feeling better. Pain: Denies pain. 18:23 Reassessment: Reassessment: Patient denies pain at this time. kr3 Vital Signs: 14:51 BP 174 / 86; Pulse 91; Resp 18; Temp 98.1; Pulse Ox 98% on R/A; Weight 129.27 kg; kr3 Height 5 ft. 8 in. (172.72 cm); 17:33 BP 152 / 57; Pulse 88; Resp 17; ll1 17:40 BP 125 / 86; Pulse 80; Resp 17; Pulse Ox 98% ; ll1 14:51 Body Mass Index 43.33 (129.27 kg, 172.72 cm) kr3 ED Course: 14:50 Patient arrived in ED. kr3 14:53 Alfred Hooker PA is PHCP. cp 14:53 Veto Pandya MD is Attending Physician. cp 14:57 Triage completed. kr3 15:03 Arm band placed on Patient placed in an exam room, on a stretcher. kr3 15:27 Urine Microscopic Only Sent. ll1 15:30 Inserted saline lock: 22 gauge in right antecubital area, using aseptic technique. ll1 Blood collected. 15:40 XRAY Chest (1 view) In Process Unspecified. EDMS 15:59 CT Head Brain wo Cont In Process Unspecified. EDMS 16:29 Leon Perez, RN is Primary Nurse. ll1 17:41 Patient has correct armband on for positive identification. Bed in low position. Call ll1 light in reach. Side rails up X 1. Client placed on continuous cardiac and pulse oximetry monitoring. NIBP monitoring applied. 18:20 No provider procedures requiring assistance completed. IV discontinued, intact, kr3 bleeding controlled, No redness/swelling at site. Pressure dressing applied. Administered Medications: 16:35 Drug: Magnesium Sulfate 1 grams Route: IVPB; Infused Over: 1 hrs; Site: right ll1 antecubital; 17:40 Follow up: Response: No adverse reaction; IV Status: Completed infusion; IV Intake: ll1 100ml 18:24 Follow up: IV Status: Completed infusion; IV Intake: 100ml kr3 17:40 Not Given (no pain noww): Tylenol 1000 mg PO once ll1 17:40 Not Given (No N/V. ): Reglan (metoCLOPramide) 10 mg IVP once; over 1 to 2 minutes ll1 17:40 Not Given (no pain noww): Ketorolac 15 mg IVP once ll1 Medication: 17:41 VIS not applicable for this client. ll1 Intake: 17:40 IV: 100ml; Total: 100ml. ll1 18:24 IV: 100ml; Total: 200ml. kr3 Outcome: 18:08 Discharge ordered by . cp 18:21 Discharged to home ambulatory. kr3 18:21 Condition: stable 18:21 Discharge instructions given to patient, Instructed on discharge instructions, follow up and referral plans. Demonstrated understanding of instructions, follow-up care. 18:25 Patient left the ED. kr3 Signatures: Dispatcher [employer] EDMS Alfred Hooker PA PA cp Leon Perez, RN RN ll1 Lexie Vazquez RN RN kr3 Corrections: (The following items were deleted from the chart) 18:25 18:23 Reassessment: kr3 kr3
--- NOTE | 2021-12-17 18:09 | EDPHYS ---
Physician Documentation [facility] Name: Claudio Calero Age: 61 yrs Sex: Male : 1960 Arrival Date: 12/17/2021 Time: 14:50 Bed 18 Private MD: ED Physician Veto Pandya Historical: - Allergies: 12/17 15:00 Sulfa (Sulfonamide Antibiotics); kr3 - Home Meds: 15:00 lisinopril 10 mg Oral tab 1 tab once daily [Active]; metformin 500 mg Oral Tb24 1 tab kr3 once daily [Active]; - Immunization history:: Adult Immunizations up to date, Client reports receiving the 2nd dose of the Covid vaccine. - Social history:: Smoking status: Patient denies any tobacco usage or history of. Vital Signs: 14:51 BP 174 / 86; Pulse 91; Resp 18; Temp 98.1; Pulse Ox 98% on R/A; Weight 129.27 kg; kr3 Height 5 ft. 8 in. (172.72 cm); 17:33 BP 152 / 57; Pulse 88; Resp 17; ll1 17:40 BP 125 / 86; Pulse 80; Resp 17; Pulse Ox 98% ; ll1 14:51 Body Mass Index 43.33 (129.27 kg, 172.72 cm) kr3 MDM: 14:58 Patient medically screened. cp 12/17 15:06 Order name: Basic Metabolic Panel; Complete Time: 16:20 cp 12/17 16:20 Interpretation: Normal except: GLUC 108; CRE 1.37; GFR 58. cp 12/17 15:06 Order name: CBC with Diff; Complete Time: 16:20 cp 12/17 16:21 Interpretation: Normal except: RBC 5.55. cp 12/17 15:06 Order name: LFT's; Complete Time: 16:20 cp 12/17 15:06 Order name: Magnesium; Complete Time: 16:20 cp 12/17 16:21 Interpretation: Abnormal: MG 1.7. cp 12/17 15:06 Order name: PT-INR; Complete Time: 16:20 cp 12/17 15:06 Order name: Troponin HS; Complete Time: 16:20 cp 12/17 15:06 Order name: XRAY Chest (1 view); Complete Time: 16:20 cp 12/17 15:06 Order name: CT Head Brain wo Cont; Complete Time: 16:20 cp 12/17 15:07 Order name: Urine Microscopic Only; Complete Time: 16:20 cp 12/17 15:24 Order name: Urine Dipstick-Ancillary; Complete Time: 16:20 EDMS 12/17 15:06 Order name: EKG; Complete Time: 15:06 cp 12/17 15:06 Order name: Cardiac monitoring; Complete Time: 15:20 cp 12/17 15:06 Order name: EKG - Nurse/Tech; Complete Time: 15:20 cp 12/17 15:06 Order name: IV Saline Lock; Complete Time: 15:40 cp 12/17 15:06 Order name: Labs collected and sent; Complete Time: 15:40 cp 12/17 15:06 Order name: O2 Per Protocol; Complete Time: 15:11 cp 12/17 15:06 Order name: O2 Sat Monitoring; Complete Time: 15:11 cp 12/17 15:07 Order name: Urine Dipstick-Ancillary (obtain specimen); Complete Time: 15:20 cp Administered Medications: 16:35 Drug: Magnesium Sulfate 1 grams Route: IVPB; Infused Over: 1 hrs; Site: right ll1 antecubital; 17:40 Follow up: Response: No adverse reaction; IV Status: Completed infusion; IV Intake: ll1 100ml 18:24 Follow up: IV Status: Completed infusion; IV Intake: 100ml kr3 17:40 Not Given (no pain noww): Tylenol 1000 mg PO once ll1 17:40 Not Given (No N/V. ): Reglan (metoCLOPramide) 10 mg IVP once; over 1 to 2 minutes ll1 17:40 Not Given (no pain noww): Ketorolac 15 mg IVP once ll1 Disposition Summary: 12/17/21 18:08 Discharge Ordered Location: Home cp Problem: new cp Symptoms: have improved cp Condition: Stable cp Diagnosis - Headache cp - Hypertensive heart disease without heart failure cp Followup: cp - With: Private Physician - When: 1 - 2 days - Reason: Recheck today's complaints Discharge Instructions: - Discharge Summary Sheet cp - General Headache Without Cause cp - Hypertension, Adult cp - Form - Blood Pressure Record Sheet cp - How to Take Your Blood Pressure cp Forms: - Medication Reconciliation Form cp - Thank You Letter cp - Antibiotic Education cp - Prescription Opioid Use cp Signatures: Dispatcher [employer] Alfred Nicholson PA PA cp Lewis, Lynsay RN RN ll1 Lexie Vazquez RN RN kr3
[2021-12-17 18:35] VITALS: TEMP 98.1; O2SAT 98
[2021-12-17 18:37] VITALS: BP 125/86
--- NOTE | 2021-12-18 13:54 | EKG ---
Test Date: 2021-12-17 Test Time: 15:20:50 Forming Department Supervisor: DANIELLE MEASUREMENT RESULTS: Intervals: Rate: 90 IN: 170 QRSD: 76 QT: 332 QTc: 406 [place]: P: 44 IN: 170 QRS: 74 T: 32 INTERPRETIVE STATEMENTS: Normal sinus rhythm with sinus arrhythmia Low voltage QRS Borderline ECG Compared to ECG 07/27/2019 21:07:16 Low QRS voltage now present Electronically Signed On 12-18-21 13:51:07 CDT by Eguene Ruffin
== END 2021-12-17 18:25 | disposition home or self-care (01) ==
LOC: ER 14:36
DX: I11.9 Hypertensive heart disease without heart failure (principal); Z88.2 Allergy status to sulfonamides
CPT/HCPCS: 85025; 80048; 36415; 83735; 85610; 80076; 84484; 70450; 71045; J3475; 81003; 81015; 93005

== ENCOUNTER 2021-12-29 01:39 | Emergency (ER) | payer OTHER ==
[2021-12-29 03:50] LABS: Urine Blood Negative (Negative); Urine Glucose Negative (Negative); Urine Protein Negative (Negative); Urine pH 5.5 (5.0-7.0)
[2021-12-29 04:28] LABS: Absolute Lymphocytes (CBC) 1.7 K/uL (0.7-4.9); Hematocrit 43.9 % (39.6-49.0); Lymphocytes % 29.7 % (15.3-44.8); MCV 84.1 fL (80-100); MPV 8.7 fL (7.6-11.3); RBC Red Blood Cell Count 5.22 M/uL (4.33-5.43)
[2021-12-29 04:30] LABS: Protime INR 1.04
[2021-12-29 04:40] LABS: Albumin 3.9 g/dL (3.4-5.0); Bilirubin Direct 0.2 mg/dL (0-0.2); Bilirubin Total 0.5 mg/dL (0.2-1.0); Magnesium 1.8 mg/dL (1.8-2.4); Potassium 3.8 mmol/L (3.5-5.1); Protein, Total 7.3 g/dL (6.4-8.2); Troponin High Sensitivity 3.9 pg/mL (<58.9)
--- NOTE | 2021-12-29 05:55 | ER ---
Nurse's Notes [facility] Name: Claudio Calero Age: 61 yrs Sex: Male : 1960 Arrival Date: 12/29/2021 Time: 01:43 Bed 18 Private MD: Diagnosis: Type 2 diabetes mellitus with hyperglycemia Presentation: 12/29 01:56 Chief complaint: Patient states: his blood pressure and his blood sugar have been high bb today thinks it may be a supplement he started using about a month ago he took 3 pills of the supplement today. Coronavirus screen: At this time, the client does not indicate any symptoms associated with coronavirus-19. Ebola Screen: No symptoms or risks identified at this time. Initial Sepsis Screen: Does the patient meet any 2 criteria? No. Patient's initial sepsis screen is negative. Does the patient have a suspected source of infection? No. Patient's initial sepsis screen is negative. Risk Assessment: Do you want to hurt yourself or someone else? Patient reports no desire to harm self or others. Onset of symptoms was December 29, 2021. 01:56 Method Of Arrival: Ambulatory bb 01:56 Acuity: EVELYN 3 bb Triage Assessment: 01:58 General: Appears uncomfortable, Behavior is anxious. Pain: Denies pain. Neuro: Level of bb Consciousness is awake, alert, obeys commands, Oriented to person, place, time, situation. Cardiovascular: Capillary refill < 3 seconds Patient's skin is warm and dry. Respiratory: Respiratory effort is even, unlabored. GI: No signs and/or symptoms were reported involving the gastrointestinal system. Derm: Skin is pink, warm \T\ dry. Musculoskeletal: Circulation, motion, and sensation intact. Historical: - Allergies: :58 Sulfa (Sulfonamide Antibiotics); bb - Home Meds: 01:58 lisinopril 10 mg Oral tab 1 tab once daily [Active]; metformin 500 mg Oral Tb24 1 tab bb once daily [Active]; omeprazole 20 mg Oral cpDR 1 cap once daily [Active]; Allopurinol Oral [Active]; cetirizine oral [Active]; - PMHx: :58 deviated septum; Diabetes - NIDDM; GERD; Gout; Hernia; Hypertension; bb - Immunization history:: Client reports receiving the 2nd dose of the Covid vaccine, Pfizer. - Social history:: Smoking status: Patient denies any tobacco usage or history of. Screenin:10 Abuse screen: Denies threats or abuse. Nutritional screening: No deficits noted. vc1 Tuberculosis screening: No symptoms or risk factors identified. Fall Risk None identified. Assessment: 04:37 Reassessment: Patient and/or family updated on plan of care and expected duration. Pain vc1 level reassessed. Patient is alert, oriented x 3, equal unlabored respirations, skin warm/dry/pink. Vital Signs: 01:56 BP 154 / 87; Pulse 82; Resp 20 S; Temp 98.3(TE); Pulse Ox 96% on R/A; Weight 127.91 kg bb (R); Height 5 ft. 8 in. (172.72 cm) (R); Pain 0/10; 03:00 BP 141 / 76; Pulse 69; Resp 19; Pulse Ox 95% ; vc1 03:15 BP 125 / 55; Pulse 79; Resp 20; Pulse Ox 95% ; vc1 04:30 BP 144 / 79; Pulse 67; Resp 19; Pulse Ox 96% on R/A; vc1 01:56 Body Mass Index 42.88 (127.91 kg, 172.72 cm) bb ED Course: 01:43 Patient arrived in ED. ja2 01:58 Triage completed. bb 01:58 Arm band placed on Patient placed in waiting room, Patient notified of wait time. bb 03:06 Salty Rivera MD is Attending Physician. 7 03:10 Jenny Fulton, RN is Primary Nurse. vc1 03:30 Patient has correct armband on for positive identification. Client placed on continuous vc1 cardiac and pulse oximetry monitoring. NIBP monitoring applied. 04:01 XRAY Chest (1 view) In Process Unspecified. EDMS 04:09 Inserted saline lock: 20 gauge in left antecubital area, using aseptic technique. ke1 04:36 No provider procedures requiring assistance completed. vc1 06:17 IV discontinued. mh5 06:19 IV discontinued, intact, bleeding controlled, No redness/swelling at site. Pressure vc1 dressing applied. Administered Medications: No medications were administered Medication: 04:37 VIS not applicable for this client. vc1 Outcome: 05:55 Discharge ordered by . mh7 06:19 Discharged to home ambulatory. vc1 06:19 Condition: good 06:19 Discharge instructions given to patient, Instructed on discharge instructions, follow up and referral plans. Demonstrated understanding of instructions, follow-up care. 06:19 Patient left the ED. vc1 Signatures: Dispatcher [employer] EDSara Correia RN RN bb Martinez, Maria 5 Salty Rivera MD MD 7 Chandrika Davis Jenny Fulton RN RN vc1 Yves Avendano RN RN ke1
--- NOTE | 2021-12-29 05:56 | EDPHYS ---
Physician Documentation [facility] Name: Claudio Calero Age: 61 yrs Sex: Male : 1960 Arrival Date: 12/29/2021 Time: 01:43 Bed 18 Private MD: ED Physician Salty Rivera HPI: 12/29 03:40 This 61 yrs old Male presents to ER via Ambulatory with complaints of High mh7 Blood Sugar, High Blood Pressure. 03:40 The patient or guardian reports hyperglycemia, that was potentially precipitated by no mh7 particular event, with the patient's symptoms witnessed by no one, Treatment prior to arrival includes:. Onset: The symptoms/episode began/occurred last night. Associated signs and symptoms: Pertinent positives: nausea, Pertinent negatives: anorexia, constipation, decreased urine output, diaphoresis, diarrhea, dry skin, hair loss, ketones in urine, polydipsia, polyphagia, polyuria, seizure activity, skin flushing, urinary incontinence, vomiting. Current symptoms: In the emergency department the patient's symptoms have improved, markedly. Historical: - Allergies: 01:58 Sulfa (Sulfonamide Antibiotics); bb - Home Meds: 01:58 lisinopril 10 mg Oral tab 1 tab once daily [Active]; metformin 500 mg Oral Tb24 1 tab bb once daily [Active]; omeprazole 20 mg Oral cpDR 1 cap once daily [Active]; Allopurinol Oral [Active]; cetirizine oral [Active]; - PMHx: 01:58 deviated septum; Diabetes - NIDDM; GERD; Gout; Hernia; Hypertension; bb - Immunization history:: Client reports receiving the 2nd dose of the Covid vaccine, Pfizer. - Social history:: Smoking status: Patient denies any tobacco usage or history of. ROS: 03:40 Constitutional: Negative for fever, chills, and weight loss, Eyes: Negative for injury, mh7 pain, redness, and discharge, ENT: Negative for injury, pain, and discharge, Neck: Negative for injury, pain, and swelling, Cardiovascular: Negative for chest pain, palpitations, and edema, Respiratory: Negative for shortness of breath, cough, wheezing, and pleuritic chest pain, Abdomen/GI: Negative for abdominal pain, nausea, vomiting, diarrhea, and constipation, Back: Negative for injury and pain, : Negative for injury, bleeding, discharge, and swelling, MS/Extremity: Negative for injury and deformity, Skin: Negative for injury, rash, and discoloration, Neuro: Negative for headache, weakness, numbness, tingling, and seizure, Psych: Negative for depression, anxiety, suicide ideation, homicidal ideation, and hallucinations, Allergy/Immunology: Negative for hives, rash, and allergies, Endocrine: Negative for neck swelling, polydipsia, polyuria, polyphagia, and marked weight changes, Hematologic/Lymphatic: Negative for swollen nodes, abnormal bleeding, and unusual bruising. Exam: 03:40 Constitutional: This is a well developed, well nourished patient who is awake, alert, mh7 and in no acute distress. Head/Face: Normocephalic, atraumatic. Eyes: Pupils equal round and reactive to light, extra-ocular motions intact. Lids and lashes normal. Conjunctiva and sclera are non-icteric and not injected. Cornea within normal limits. Periorbital areas with no swelling, redness, or edema. Neck: Trachea midline, no thyromegaly or masses palpated, and no cervical lymphadenopathy. Supple, full range of motion without nuchal rigidity, or vertebral point tenderness. No Meningismus. Chest/axilla: Normal chest wall appearance and motion. Nontender with no deformity. No lesions are appreciated. Cardiovascular: Regular rate and rhythm with a normal S1 and S2. No gallops, murmurs, or rubs. Normal PMI, no JVD. No pulse deficits. Respiratory: Lungs have equal breath sounds bilaterally, clear to auscultation and percussion. No rales, rhonchi or wheezes noted. No increased work of breathing, no retractions or nasal flaring. Abdomen/GI: Soft, non-tender, with normal bowel sounds. No distension or tympany. No guarding or rebound. No evidence of tenderness throughout. Back: No spinal tenderness. No costovertebral tenderness. Full range of motion. Skin: Warm, dry with normal turgor. Normal color with no rashes, no lesions, and no evidence of cellulitis. MS/ Extremity: Pulses equal, no cyanosis. Neurovascular intact. Full, normal range of motion. Neuro: Awake and alert, GCS 15, oriented to person, place, time, and situation. Cranial nerves II-XII grossly intact. Motor strength 5/5 in all extremities. Sensory grossly intact. Cerebellar exam normal. Normal gait. Psych: Awake, alert, with orientation to person, place and time. Behavior, mood, and affect are within normal limits. Vital Signs: 01:56 BP 154 / 87; Pulse 82; Resp 20 S; Temp 98.3(TE); Pulse Ox 96% on R/A; Weight 127.91 kg bb (R); Height 5 ft. 8 in. (172.72 cm) (R); Pain 0/10; 03:00 BP 141 / 76; Pulse 69; Resp 19; Pulse Ox 95% ; vc1 03:15 BP 125 / 55; Pulse 79; Resp 20; Pulse Ox 95% ; vc1 04:30 BP 144 / 79; Pulse 67; Resp 19; Pulse Ox 96% on R/A; vc1 01:56 Body Mass Index 42.88 (127.91 kg, 172.72 cm) bb MDM: 05:54 Differential diagnosis: DKA, hyperglycemia, Hypertension. Data reviewed: vital signs, [facility] nurses notes, lab test result(s), cardiac enzymes, CBC, electrolytes, urinalysis, EKG, radiologic studies, plain films. Data interpreted: Pulse oximetry: on room air is 96 %. Interpretation: normal. Counseling: I had a detailed discussion with the patient and/or guardian regarding: the historical points, exam findings, and any diagnostic results supporting the discharge/admit diagnosis, the presence of at least one elevated blood pressure reading (>120/80) during this emergency department visit, lab results, radiology results, the need for outpatient follow up, to return to the emergency department if symptoms worsen or persist or if there are any questions or concerns that arise at home. Response to treatment: the patient's symptoms have resolved after treatment, the patient's blood pressure is in an acceptable range, mental status has returned to baseline, the patient no longer shows bradycardia, the patient is not short of breath, the patient is not tachycardic, the patient's pain is gone, the patient's temperature has normalized, the patient is now symptom free, patient is well hydrated. 05:55 Patient medically screened. [facility] 12/29 03:07 Order name: Glucose, Ancillary Testing; Complete Time: 03:07 EDLA 12/29 03:47 Order name: Basic Metabolic Panel; Complete Time: 04:40 7 12/29 03:47 Order name: CBC with Diff; Complete Time: 04:40 7 12/29 03:47 Order name: LFT's; Complete Time: 04:40 7 12/29 03:47 Order name: Magnesium; Complete Time: 04:40 7 12/29 03:47 Order name: NT PRO-BNP; Complete Time: 04:40 7 12/29 03:47 Order name: PT-INR; Complete Time: 04:40 7 12/29 03:47 Order name: Troponin HS; Complete Time: 04:40 7 12/29 03:47 Order name: XRAY Chest (1 view) [facility] 12/29 03:47 Order name: EKG; Complete Time: 03:48 7 12/29 03:47 Order name: Cardiac monitoring; Complete Time: 04:20 7 12/29 03:47 Order name: EKG - Nurse/Tech; Complete Time: 04:20 7 12/29 03:47 Order name: IV Saline Lock; Complete Time: 04:09 7 12/29 03:51 Order name: Urine Dipstick-Ancillary; Complete Time: 04:40 [facility] 12/29 03:47 Order name: Labs collected and sent; Complete Time: 04:09 7 12/29 03:47 Order name: O2 Per Protocol; Complete Time: 03:54 7 12/29 03:47 Order name: O2 Sat Monitoring; Complete Time: 03:54 7 12/29 03:47 Order name: Urine Dipstick-Ancillary (obtain specimen); Complete Time: 03:53 7 Administered Medications: No medications were administered Disposition Summary: 12/29/21 05:55 Discharge Ordered Location: Home [facility] Problem: new [facility] Symptoms: have improved [facility] Condition: Stable [facility] Diagnosis - Type 2 diabetes mellitus with hyperglycemia 7 Followup: [facility] - With: Private Physician - When: 1 - 2 days - Reason: Worsening of condition, Recheck today's complaints, Continuance of care, Re-evaluation by your physician Discharge Instructions: - Discharge Summary Sheet [facility] - Hyperglycemia [facility] Forms: - Medication Reconciliation Form [facility] - Thank You Letter 7 - Antibiotic Education 7 - Prescription Opioid Use [facility] Signatures: Dispatcher [facility] Sara Montoya RN RN bb Salty Rivera, MD ESPINOZA mh7
[2021-12-29 06:26] VITALS: TEMP 98.3
[2021-12-29 06:31] VITALS: BP 144/79; O2SAT 96
--- NOTE | 2021-12-29 12:39 | EKG ---
Test Date: 2021-12-29 Test Time: 03:50:28 Wildlife Biologist: PAMELA MEASUREMENT RESULTS: Intervals: Rate: 72 DE: 184 QRSD: 84 QT: 378 QTc: 413 [place]: P: 44 DE: 184 QRS: 48 T: 26 INTERPRETIVE STATEMENTS: Normal sinus rhythm Anterior infarct, age undetermined Abnormal ECG Compared to ECG 12/17/2021 15:20:50 Myocardial infarct finding now present Sinus arrhythmia no longer present Electronically Signed On 12-29-21 12:38:48 CDT by Eugene Ruffin
--- NOTE | 2021-12-30 11:19 | RAD REPORT ---
EXAM DESCRIPTION: RAD - Chest Single View - 12/29/2021 3:59 am CLINICAL HISTORY: The patient is 61 years old and is Male; hypertensive TECHNIQUE: Frontal view of the chest. COMPARISON: No relevant prior studies available. FINDINGS: Lungs: Mildly prominent interstitial markings. No consolidation. Pleural space: Unremarkable. No pneumothorax. Heart: Unremarkable. Mediastinum: Unremarkable. Bones/joints: Unremarkable. IMPRESSION: Mildly prominent interstitial markings. No consolidation. Electronically signed by: Bethel Lee MD 12/29/2021 4:28 AM CDT Due to temporary technical issues with the PACS/Fluency reporting system, reports are being signed by the in house radiologists without review as a courtesy to insure prompt reporting. The interpreting radiologist is fully responsible for the content of the report.
== END 2021-12-29 06:19 | disposition home or self-care (01) ==
LOC: ER 01:39
DX: E11.65 Type 2 diabetes mellitus with hyperglycemia (principal); I10 Essential (primary) hypertension; Z88.2 Allergy status to sulfonamides
CPT/HCPCS: 36415; 71045; 80048; 80076; 81003; 82947; 83735; 83880; 84484; 85025; 85610; 93005; 99283

== ENCOUNTER 2023-04-28 19:41 | Emergency (ER) | payer OTHER ==
--- OUTSIDE RECORDS SUMMARY | 2023-04-28 19:45 | XMS REPORT | Continuity of Care Document ---
:1960 Author Organization [facility] t Address [address] [place] [address] [address] [place] [address] Care Team Providers Name Role Phone Sasha Randolphina Primary Care Physician Chuckie Del Rosario MD Attending Clinician Doctor Unassigned, [place] Attending Clinician Unavailable Prashanth Gibbs MD Attending Clinician CHUCKIE DEL ROSARIO Attending Clinician Unavailable ROSA BOSS Attending Clinician Unavailable Rosa Boss MD Attending Clinician KELSY RODRIGUEZ Attending Clinician Unavailable [facility] Attending Clinician Unavailable CHUCKIE DEL ROSARIO Admitting Clinician Unavailable Payers Payer Name Policy Type Policy Number Effective Date Expiration Date S ourmartir Problems Condition Condition Condition Status Onset Resolution Last Treating Co mments Source Name Details Category Date Date Treatment Clinician Date No known No known Disease Unive rs active active ity of problems problems [facility] Allergies, Adverse Reactions, Alerts Allergy Allergy Status Severity Reaction(s) Onset Inactive Treating Comm ents Source Name Type Date Date Clinician NO KNOWN Drug Active Univers ALLERGIE Class ity of S [facility] Social History Social Habit Start Date Stop Date Quantity Comments Source Sexual orientation [facility] Exposure to 2021-10-04 2021-10-14 Not sure [facility] SARS-CoV-2 (event) 00:00:00 10:29:00 Medica l Branch Sex Ass[birth year] [facility] 00:00:00 00:00:00 Medical Branch Smoking Status Start Date Stop Date Source Tobacco smoking consumption Univ [facility] unknown Branch Medications Ordered Filled Start Stop Current Ordering Indication Dosage Frequency Signature Comments Components Source Medication Medication Date Date Medication? Clinician (SIG) Name Name meloxicam Yes 7.5mg Take 1 Unive rs (MOBIC) 7.5 3-09 tablet by ity of mg tablet 00:00: mouth [place] 00 daily. Medical Branch meloxicam Yes 7.5mg Take 1 Unive rs (MOBIC) 7.5 3-09 tablet by ity of mg tablet 00:00: mouth [place] 00 daily. Medical Branch meloxicam Yes 7.5mg Take 1 Unive rs (MOBIC) 7.5 3-09 tablet by ity of mg tablet 00:00: mouth [place] 00 daily. Medical Branch Immunizations Ordered Filled Date Status Comments Source Immunization Name Immunization Name SARS-COV-2 COVID-19 2020-08-15 Completed Unive rsity of PFIZER VACCINE 00:00:00 [facility] SARS-COV-2 COVID-19 2020-08-15 Completed Unive rsity of PFIZER VACCINE 00:00:00 [facility] SARS-COV-2 COVID-19 2020-08-15 Completed Unive rsity of PFIZER VACCINE 00:00:00 [facility] SARS-COV-2 COVID-19 2020-07-25 Completed Unive rsity of PFIZER VACCINE 00:00:00 [facility] SARS-COV-2 COVID-19 2020-07-25 Completed Unive rsity of PFIZER VACCINE 00:00:00 [facility] SARS-COV-2 COVID-19 2020-07-25 Completed Unive rsity of PFIZER VACCINE 00:00:00 [facility] SARS-COV-2 COVID-19 Unknown Completed Unive rsity of PFIZER VACCINE [facility] SARS-COV-2 COVID-19 Unknown Completed Unive rsity of PFIZER VACCINE [facility] Procedures Procedure Date / Time Performing Clinician Source Performed AUTHORIZATION FOR 2021-12-25 05:01:00 Doctor Unassigned, No [facility] [place] RELEASE OF PHI Name Medical Branch Encounters Start End Encounter Admission Attending Care Care Encounter Source Date/Time Date/Time Type Type Clinicians Facility Department ID 2022-06-02 2022-06-02 Telephone Mellissamnmartir [facility] [id number] [facility] 00:00:00 00:00:00 Chuckie PRIMARY [id number] it [id number] [id number] Ut dical 198 Branch 2022-03-13 2022-03-13 Outpatient R [facility] [id number] Univers 09:00:00 09:00:00 ity of [facility] 2021-12-25 2021-12-25 Orders Doctor CHUCKIE [id number] Univers 00:00:00 00:00:00 Only Unassigned, MOLLY [id number] ity of [place] [facility] [id number] [place] [phone] [place] [address] Branch 2021-12-19 2021-12-19 Outpatient R [facility] [id number] Univers 09:00:00 09:00:00 ity of [facility] 2021-12-04 2021-12-04 [facility] [id number] Univers 00:00:00 00:00:00 Prashanth PRIMARY [id number] [id number] [id number] Ut dical 086 Branch 2021-10-22 2021-10-22 [facility] [id number] Univers 15:50:00 15:50:00 CHUCKIE ity of [facility] 2021-10-14 2021-10-14 [facility] [id number] Univers 07:30:00 23:59:00 ROSA ity [facility] 2021-10-14 2021-10-14 [facility] [id number] Univers 07:30:00 23:59:00 [facility] [id number] [id number] [id number] [facility] 038 Branch OFFICE BUILDING 2021-09-17 2021-09-17 [facility] [id number] Univers 09:30:00 09:30:00 CHILVANA ity o f [facility] 2021-09-17 2021-09-17 Outpatient R MCIHAEL, [facility] [id number] Univers 09:30:00 09:30:00 CHIEDNATANG ity o f [facility] 2021-09-16 2021-09-16 Telephone Mellissagermán, [facility] [id number] Univers 00:00:00 00:00:00 Chuckie SPECIALTY [id number] [id number] [phone] Ut sultana BIRCH [address] [place] [address] 2021-09-10 2021-09-10 Office Failgermán, [facility] [id number] Univers 16:00:00 16:59:59 Visit Chuckie CHILD [id number] it[id number] [phone] [facility] [address] [place] [address] 2021-09-10 2021-09-10 Outpatient R FAILLACE, [facility] [id number] Univers 16:00:00 16:59:59 [facility] 2021-09-10 2021-09-10 Outpatient R FAILLACE, [facility] [id number] Univers 16:00:00 16:59:59 [facility] 2021-09-10 2021-09-10 Outpatient R FAILLACE, [facility] [id number] Univers 16:00:00 16:00:00 [facility] 2021-09-10 2021-09-10 Outpatient R FAILLACE, [facility] [id number] Univers 16:00:00 16:00:00 [facility] 2021-09-10 2021-09-10 Outpatient R FAILLACE, [facility] [id number] Univers 15:20:00 15:20:00 [facility] 2021-09-10 2021-09-10 Orders Doctor CHUCKIE [id number] Univers 00:00:00 00:00:00 Only Unassigned, MOLLY [id number] ity of [place] [facility] [id number] [place] [id number] [facility] 00[address] [place] 2021-09-05 2021-09-05 [facility] 1.2.840.114 [id number] Univers 00:00:00 00:00:00 Chuckie PRIMARY [id number] [id number] [id number] Ut sultana Santizo [facility] 2021-08-25 2021-08-25 Telephone [facility] [id number] Univers 00:00:00 00:00:00 Chuckie SPECIALTY [id number] [id number] [id number] [place] BIR[place] 198 [facility] 2021-08-20 2021-08-20 Outpatient R FAILLACE, [facility] [id number] Univers 13:45:00 15:01:18 CHUCKIE bhakta [facility] 2021-08-20 2021-08-20 Interventional Radiology Tech Vls-Lab [facility] [id number] Univers 13:45:00 14:00:00 Visit Chuckie Del Rosario SPECIALTY [id number] [id number] [phone] [place] 353 [facility] 2021-08-20 2021-08-20 Outpatient R FAILLACE, [facility] [id number] Univers 13:45:00 13:45:00 CHUCKIE bhakta [facility] 2021-08-20 2021-08-20 Outpatient R FAILLACE, [facility] [id number] Univers 12:40:00 13:31:32 CHUCKIE bhakta [facility] 2021-08-20 2021-08-20 Office [facility] [id number] Univers 12:40:00 13:31:32 Visit Chuckie SPECIALTY [id number] [id number] [phone] [place]IR[place] 198 [facility] 2021-08-13 2021-08-13 [facility]phone [facility] 1.2.840.114 [id number] Univers 00:00:00 00:00:00 Chuckie SPECIALTY [id number] [id number] [phone] Ut sultana Santizo [facility] 2021-07-16 2021-07-16 Patient [facility] [id number] Univers 00:00:00 00:00:00 Secure Msg Chuckie SPECIALTY [id number] [id number] [phone] Ut sultana Santizo [facility] 2021-07-02 2021-07-02 [facility] [id number] Univers 12:50:00 12:50:00 CHUCKIE bhakta [facility] 2021-06-11 2021-06-11 Orders Doctor CHUCKIE Williamson.[id number] Univers 00:00:00 00:00:00 Only Unassigned, MOLLY [id number] ity of [place] [facility]PITAL [id number] [place] [phone] [address] 2021-05-28 2021-05-28 Patient Doctor CHUCKIE [id number] Univers 00:00:00 00:00:00 Secure Msg Unassigned, MOLLY [id number] ity of [place] H[facility]PITAL [id number] [place] [phone] [facility] 019 [place] 2021-05-21 2021-05-21 Outpatient R FAILGERMÁN, [facility] [id number] Univers 11:00:00 11:00:00 CHUCKIE bhakta [facility] 2021-05-21 2021-05-21 Orders Doctor CHUCKIE Romero2.840.114 [id number] Univers 00:00:00 00:00:00 Only Unassigned, MOLLY [id number] ity of [place] [facility]OSPITAL [id number] [place] [phone] [address] 2021-04-16 2021-04-16 [facility] [id number] Univers 09:40:00 09:40:00 CHUCKIE bhakta [facility] 2021-04-02 2021-04-02 [facility] [id number] Univers 16:34:17 23:59:00 Encounter Chuckie SPECIALTY [id number] ity of CARE [id number] [facility] [phone] Ut sultana BIRCH 809 [facility] 2021-04-02 2021-04-02 Office [facility] [id number] Univers 16:29:45 17:01:34 Visit Chuckie SPECIALTY [id number] ity of CARE [id number] [facility] s CENTER AT [phone] Ut sultana BIRCH 198 [facility] 2021-04-02 2021-04-02 Outpatient R [facility] [id number] Univers 16:00:00 17:01:34 CHUCKIE bhakta [facility] 2021-03-26 2021-03-26 Orders Doctor CHUCKIE [id number] Univers 00:00:00 00:00:00 Only Unassigned, MOLLY [id number] ity of [place] [facility] [id number] [place] [phone] [address] Results This patient has no known results.
--- NOTE | 2023-04-28 21:09 | RAD REPORT ---
EXAM DESCRIPTION: CTAbdomen Pelvis Wo Contrast - 04/28/2023 8:59 pm CLINICAL HISTORY: back pain, dysuria COMPARISON: No comparisons TECHNIQUE: CT of the abdomen and pelvis was performed. All CT scans are performed using dose optimization technique as appropriate and may include automated exposure control or mA/KV adjustment according to patient size. FINDINGS: Lower chest: No acute abnormality. Liver: Hepatic steatosis. Biliary: No biliary ductal dilatation. Stomach: No significant focal abnormality. Duodenum: No significant focal abnormality. Pancreas: No significant abnormality. Spleen: No significant abnormality. Adrenal: No suspicious lesions. Kidney/ureter: No hydronephrosis. No renal calculi. Right lower pole renal cyst. Retroperitoneum: No retroperitoneal adenopathy. Vascular: No aneurysm. Bowel: No significant focal abnormality. Normal appendix. Peritoneum: No ascites or free air. Fat containing periumbilical hernia. Bladder: Grossly unremarkable. Reproductive: No adnexal masses. Mild prostatomegaly . Bones: No acute fracture. Other: n/a IMPRESSION: No acute intra-abdominal or pelvic finding. No renal or ureteral calculi identified. Nor mal appendix .
[2023-04-28 23:36] LABS: Specific Gravity 1.016 (1.005-1.030); Urine Bilirubin NEGATIVE (Negative); Urine Blood Negative (Negative); Urine Clarity Clear (Clear); Urine Color Light-Yellow (Yellow); Urine Glucose NEGATIVE (Negative); Urine Protein NEGATIVE (Negative); Urine Urobilinogen Normal (Normal); Urine pH 5.5 (5.0-7.0)
[2023-04-28 23:38] LABS: Absolute Lymphocytes (CBC) 1.5 K/uL (0.7-4.9); Hematocrit 43.1 % (39.6-49.0); Lymphocytes % 25.3 % (15.3-44.8); MCV 85.4 fL (80-100); MPV 8.5 fL (7.6-11.3); Platelets 228 thou/uL (152-406); RBC Red Blood Cell Count 5.04 M/uL (4.33-5.43)
[2023-04-28 23:52] LABS: Albumin 3.4 g/dL (3.4-5.0); Bilirubin Total 0.4 mg/dL (0.2-1.0); C-Reactive Protein 5.28 mg/L (<3.00); Potassium 4.4 mEq/L (3.5-5.1); Protein, Total 6.9 g/dL (6.4-8.2)
--- NOTE | 2023-04-29 00:02 | EDPHYS ---
Physician Documentation [facility] Name: Claudio Calero Age: 62 yrs Sex: Male : 1960 Arrival Date: 04/28/2023 Time: 19:41 Bed 9 Private MD: ED Physician Yehuda Wei HPI: 04/28 20:28 This 62 yrs old Male presents to ER via Unassigned with complaints of Pain sp4 With Urination, Urinary Incontinence. 20:29 PMH - Allergies: Sulfa (Sulfonamide Antibiotics) Home Meds: lisinopril 10 mg Oral tab 1 sp4 tab once daily; metformin 500 mg Oral Tb24 1 tab once daily; omeprazole 20 mg Oral cpDR 1 cap once daily; Allopurinol Oral; cetirizine oral PMHx: deviated septum; Diabetes - NIDDM; GERD; Gout; Hernia; Hypertension;. 20:34 Patient has who is presenting with 2 weeks of bilateral lower back pain and sp4 complaint of bloody foul-smelling urine. Patient is concerned about urinary tract infection and kidney infection also concerned about kidney stones. Patient states back pain is uniformly distributed throughout his lower back. Patient has history of prediabetes, hypertension, GERD, gout, he denied hematuria or pain with urination. Historical: - Allergies: 20:32 Sulfa (Sulfonamide Antibiotics); mb9 - Home Meds: 20:32 metformin 500 mg Oral Tb24 1 tab once daily [Active]; Allopurinol Oral [Active]; mb9 lisinopril 10 mg Oral tab 1 tab once daily [Active]; omeprazole 20 mg Oral cpDR 1 cap once daily [Active]; cetirizine Oral [Active]; - PMHx: 20:32 deviated septum; Gout; GERD; Hernia; Diabetes - NIDDM; Hypertension; mb9 - Immunization history:: Adult Immunizations up to date. - Social history:: Smoking status: Patient denies any tobacco usage or history of. - Family history:: not pertinent. ROS: 04/29 00:14 Constitutional: Negative for fever, chills, and weight loss, positive lower back pain, sp4 positive foul-smelling urine All other systems are negative, Exam: 00:14 Constitutional: This is a well developed, well nourished patient who is awake, alert, sp4 and in no acute distress. Head/Face: Normocephalic, atraumatic. Eyes: Pupils equal round and reactive to light, extra-ocular motions intact. Lids and lashes normal. Conjunctiva and sclera are not injected. Cornea within normal limits. Periorbital areas with no swelling, redness, or edema. ENT: Nares patent. No nasal discharge, no septal abnormalities noted. Tympanic membranes are normal and external auditory canals are clear. Oropharynx with no redness, swelling, or masses, exudates, or evidence of obstruction, uvula midline. Mucous membranes moist. Neck: Trachea midline, no thyromegaly or masses palpated, and no cervical lymphadenopathy. Supple, full range of motion without nuchal rigidity, or vertebral point tenderness. Chest/axilla: Normal chest wall appearance and motion. Nontender with no deformity. No lesions are appreciated. Cardiovascular: Regular rate and rhythm with a normal S1 and S2. No gallops, murmurs, or rubs. Normal PMI, no JVD. No pulse deficits. Respiratory: Lungs have equal breath sounds bilaterally, clear to auscultation and percussion. No rales, rhonchi or wheezes noted. No increased work of breathing, no retractions or nasal flaring. Abdomen/GI: Soft, non-tender, with normal bowel sounds. No distension or tympany. No guarding or rebound. No evidence of tenderness throughout. Back: No spinal tenderness. No costovertebral tenderness. Skin: Warm, dry with normal turgor. Normal color with no rashes, no lesions, and no evidence of cellulitis. MS/ Extremity: Pulses equal, no cyanosis. Neurovascular intact. Full, normal range of motion. Neuro: Awake and alert, GCS 15, oriented to person, place, time, and situation. Cranial nerves II-XII grossly intact. Motor strength 5/5 in all extremities. Sensory grossly intact. Psych: Awake, alert, with orientation to person, place and time. Behavior, mood, and affect are within normal limits Vital Signs: 04/28 20:30 BP 151 / 86; Pulse 73; Resp 18; Temp 98.2; Pulse Ox 100% ; Weight 88.45 kg; Height 5 mb9 ft. 4 in. ; 04/29 00:06 BP 142 / 81; Pulse 78; Resp 16; Pulse Ox 100% on R/A; me1 04/28 20:30 Body Mass Index 33.47 (88.45 kg, 162.56 cm) mb9 MDM: 04/28 20:49 Patient medically screened. sp4 04/29 00:13 ED course: CT abdomen - EXAM DESCRIPTION: CTAbdomen Pelvis Wo Contrast - 04/28/2023 sp4 8:59 pm CLINICAL HISTORY: back pain, dysuria COMPARISON: No comparisons TECHNIQUE: CT of the abdomen and pelvis was performed. All CT scans are performed using dose optimization technique as appropriate and may include automated exposure control or mA/KV adjustment according to patient size. FINDINGS: Lower chest: No acute abnormality. Liver: Hepatic steatosis. Biliary: No biliary ductal dilatation. Stomach: No significant focal abnormality. Duodenum: No significant focal abnormality. Pancreas: No significant abnormality. Spleen: No significant abnormality. Adrenal: No suspicious lesions. Kidney/ureter: No hydronephrosis. No renal calculi. Right lower pole renal cyst. Retroperitoneum: No retroperitoneal adenopathy. Vascular: No aneurysm. Bowel: No significant focal abnormality. Normal appendix. Peritoneum: No ascites or free air. Fat containing periumbilical hernia. Bladder: Grossly unremarkable. Reproductive: No adnexal masses. Mild prostatomegaly . Bones: No acute fracture. Other: n/a IMPRESSION: No acute intra-abdominal or pelvic finding. No renal or ureteral calculi identified. Normal appendix . Signed By: Vinayak Hurley MD. 00:14 Differential Diagnosis altered mental status, sepsis, UTI, musculoskeletal pain. Data sp4 reviewed: vital signs, nurses notes, old medical records, lab test result(s), electrolytes, hepatic panel, radiologic studies, CT scan. ED course: Work-up today is unremarkable patient's kidney function is stable. Patient stable for discharge home with as needed OTC medications for lower back pain. 04/28 20:34 Order name: CBC with Diff; Complete Time: 00:00 sp4 04/28 20:34 Order name: CMP; Complete Time: 23:53 sp4 04/28 20:34 Order name: Lipase; Complete Time: 23:53 sp4 04/28 20:34 Order name: Urinalysis w/ reflexes; Complete Time: 23:53 sp4 04/28 20:34 Order name: CRP; Complete Time: 23:53 sp4 04/28 20:34 Order name: CT Abd/Pelvis - Without Contrast; Complete Time: 23:28 sp4 04/28 20:34 Order name: IV Saline Lock; Complete Time: 23:13 sp4 04/28 20:34 Order name: Labs collected and sent; Complete Time: 23:13 sp4 Administered Medications: No medications were administered Disposition Summary: 04/29/23 00:01 Discharge Ordered Notes: Location: Home sp4 Problem: new sp4 Symptoms: have improved sp4 Condition: Stable sp4 Diagnosis - Low back pain sp4 Followup: sp4 - With: Private Physician - When: 7 - 10 days - Reason: Recheck today's complaints Discharge Instructions: - Discharge Summary Sheet sp4 - Acute Back Pain, Adult sp4 Forms: - Patient Portal Instructions sp4 Signatures: Dispatcher [employer] Yuli Nagy RN RN mb9 Yehuda Wei MD MD sp4
--- NOTE | 2023-04-29 00:02 | ER ---
Nurse's Notes [facility] Name: Claudio Calero Age: 62 yrs Sex: Male : 1960 Arrival Date: 04/28/2023 Time: 19:41 Bed 9 Private MD: Diagnosis: Low back pain Presentation: 04/28 20:30 Chief complaint: Patient states: "I think I have a kidney infection. I have back pain mb9 for the past 2 weeks. My urine has foul odor, there is no blood in my urine.". Coronavirus screen: At this time, the client does not indicate any symptoms associated with coronavirus-19. Ebola Screen: No symptoms or risks identified at this time. Initial Sepsis Screen: Does the patient meet any 2 criteria? No. Patient's initial sepsis screen is negative. Does the patient have a suspected source of infection? No. Patient's initial sepsis screen is negative. Risk Assessment: Do you want to hurt yourself or someone else? Patient reports no desire to harm self or others. Onset of symptoms was April 28, 2023. 20:30 Method Of Arrival: Ambulatory mb9 20:30 Acuity: EVELYN 3 mb9 Triage Assessment: 20:33 General: Appears in no apparent distress. Behavior is calm, cooperative. Pain: mb9 Complains of pain in back. Neuro: Avila Agitation-Sedation Scale (RASS): 0 - Alert and Calm Level of Consciousness is awake, alert, obeys commands, Oriented to person, place, time, situation, Appropriate for age. Cardiovascular: Patient's skin is warm and dry. Respiratory: Airway is patent Respiratory effort is even, unlabored, Respiratory pattern is regular, symmetrical. : Reports foul urine. Derm: Skin is pink, warm \\T\\ dry. Musculoskeletal: Range of motion: intact in all extremities. Historical: - Allergies: 20:32 Sulfa (Sulfonamide Antibiotics); mb9 - Home Meds: 20:32 metformin 500 mg Oral Tb24 1 tab once daily [Active]; Allopurinol Oral [Active]; mb9 lisinopril 10 mg Oral tab 1 tab once daily [Active]; omeprazole 20 mg Oral cpDR 1 cap once daily [Active]; cetirizine Oral [Active]; - PMHx: 20:32 deviated septum; Gout; GERD; Hernia; Diabetes - NIDDM; Hypertension; mb9 - Immunization history:: Adult Immunizations up to date. - Social history:: Smoking status: Patient denies any tobacco usage or history of. - Family history:: not pertinent. Screenin:14 [facility] ED Fall Risk Assessment (Adult) History of falling in the last 3 months, me1 including since admission No falls in past 3 months (0 pts) Confusion or Disorientation No (0 pts) Intoxicated or Sedated No (0 pts) Impaired Gait No (0 pts) Mobility Assist Device Used No (0 pt) Altered Elimination No (0 pt) Score/Fall Risk Level 0 - 2 = Low Risk. Abuse screen: Denies threats or abuse. Nutritional screening: No deficits noted. Tuberculosis screening: No symptoms or risk factors identified. Assessment: 23:14 General: See triage assessment. . me1 Vital Signs: 20:30 BP 151 / 86; Pulse 73; Resp 18; Temp 98.2; Pulse Ox 100% ; Weight 88.45 kg; Height 5 mb9 ft. 4 in. ; 04/29 00:06 BP 142 / 81; Pulse 78; Resp 16; Pulse Ox 100% on R/A; me1 04/28 20:30 Body Mass Index 33.47 (88.45 kg, 162.56 cm) mb9 ED Course: 04/28 19:50 Patient arrived in ED. jj6 20:28 Yehuda Wei MD is Attending Physician. sp4 20:32 Triage completed. mb9 20:33 Arm band placed on. mb9 21:01 CT Abd/Pelvis - Without Contrast In Process Unspecified. EDMS 22:58 Breanna Marlow, VIVIENNE is Primary Nurse. me1 23:13 No provider procedures requiring assistance completed. Inserted saline lock: 22 gauge me1 in right antecubital area, using aseptic technique. 23:13 CBC with Diff Sent. me1 23:13 CMP Sent. me1 23:13 Lipase Sent. me1 23:13 Urinalysis w/ reflexes Sent. me1 23:14 Patient has correct armband on for positive identification. Bed in low position. Call me1 light in reach. Side rails up X 1. Provided Education on: POC. Verbalized understanding. . 04/29 00:14 IV discontinued, intact, bleeding controlled, No redness/swelling at site. Pressure me1 dressing applied. Administered Medications: No medications were administered Medication: 04/28 23:14 VIS not applicable for this client. me1 Outcome: 04/29 00:01 Discharge ordered by . sp4 00:13 Discharged to home ambulatory, me1 00:13 Condition: stable 00:13 Discharge instructions given to patient, Instructed on discharge instructions, follow up and referral plans. Demonstrated understanding of instructions, follow-up care, 00:14 Patient left the ED. me1 Signatures: Dispatcher [employer] EDBella Hall, Yuli Ordaz, RN RN mb9 Yehuda Wei MD MD sp4 Breanna Marlow RN RN me1
[2023-04-29 00:55] VITALS: TEMP 98.2; O2SAT 100
[2023-04-29 00:56] VITALS: BP 142/81
== END 2023-04-29 00:14 | disposition home or self-care (01) ==
LOC: EEVIPCON 19:41 → ER 19:41
DX: M54.50 Low back pain, unspecified (principal); R30.0 Dysuria; E11.9 Type 2 diabetes mellitus without complications; I10 Essential (primary) hypertension; Z88.2 Allergy status to sulfonamides
CPT/HCPCS: 36415; 74176; 80053; 81003; 83690; 85025; 86140; 99283

== ENCOUNTER 2023-05-16 01:03 | Emergency (ER) | payer OTHER ==
--- OUTSIDE RECORDS SUMMARY | 2023-05-16 01:17 | XMS REPORT | Continuity of Care Document ---
:1960 Author Organization [facility] t Address [address] [place] [address] [address] [place] [address] Care Team Providers Name Role Phone Sasha Randolphina Primary Care Physician Chuckie Del Rosario MD Attending Clinician Doctor Unassigned, [place] Attending Clinician Unavailable Prashanth Gibbs MD Attending Clinician CHUCKIE DEL ROSARIO Attending Clinician Unavailable ROSA BOSS Attending Clinician Unavailable Rosa Boss MD Attending Clinician KELSY RODRIGUEZ Attending Clinician Unavailable [facility] Attending Clinician Unavailable CHUCKIE DEL ROSARIO Admitting Clinician Unavailable Payers Payer Name Policy Type Policy Number Effective Date Expiration Date S ource Problems Condition Condition Condition Status Onset Resolution Last Treating Co mments Source Name Details Category Date Date Treatment Clinician Date No known No known Disease Unive rs active active ity of problems problems [facility] Allergies, Adverse Reactions, Alerts Allergy Allergy Status Severity Reaction(s) Onset Inactive Treating Comm ents Source Name Type Date Date Clinician NO KNOWN Drug Active Univers ALLERGIE Class ity of S [facility] Social History Social Habit Start Date Stop Date Quantity Comments Source Sexual orientation [facility] Exposure to 2021-10-04 2021-10-14 Not sure [facility] SARS-CoV-2 (event) 00:00:00 10:29:00 Medica l Branch Sex Assigned At [birth year] [facility] 00:00:00 00:00:00 Medical Branch Smoking Status Start Date Stop Date Source Tobacco smoking consumption [facility] unknown Branch Medications Ordered Filled Start [...] Completed Unive rsity of PFIZER VACCINE 00:00:00 [facility] SARS-COV-2 COVID-19 2020-08-15 Completed Unive rsity of PFIZER VACCINE 00:00:00 [facility] SARS-COV-2 COVID-19 2020-08-15 Completed Unive rsity of PFIZER VACCINE 00:00:00 [facility] SARS-COV-2 COVID-19 2020-07-25 Completed Unive rsity of PFIZER VACCINE 00:00:00 [facility] SARS-COV-2 COVID-19 2020-07-25 Completed Unive rsity of PFIZER VACCINE 00:00:00 [facility] SARS-COV-2 COVID-19 2020-07-25 Completed Unive rsity of PFIZER VACCINE 00:00:00 [facility] SARS-COV-2 COVID-19 Unknown Completed Unive rsity of PFIZER VACCINE [facility] SARS-COV-2 COVID-19 Unknown Completed Unive rsity of PFIZER VACCINE [facility] Procedures Procedure Date / Time Performing Clinician Source Performed AUTHORIZATION FOR 2021-12-25 05:01:00 Doctor Unassigned, No [facility] [place] RELEASE OF PHI Name Medical Branch Encounters Start End Encounter Admission Attending Care Care Encounter Source Date/Time Date/Time Type Type Clinicians Facility Department ID 2022-06-02 2022-06-02 [place] [id number] Univers 00:00:00 00:00:00 Chuckie PRIMARY [id number] [id number] [id number] In dical 198 Branch 2022-03-13 2022-03-13 Outpatient R [facility] [id number] Univers 09:00:00 09:00:00 ity of [facility] 2021-12-25 2021-12-25 Orders Doctor CHUCKIE [id number] Univers 00:00:00 00:00:00 Only Unassigned, MOLLY [id number] ity of [place] [facility] [id number] [place] as [id number] [facility] 009 Branch 2021-12-19 2021-12-19 Outpatient R [facility] [id number] Univers 09:00:00 09:00:00 ity of [facility] 2021-12-04 2021-12-04 [facility] [id number] Univers 00:00:00 00:00:00 Prashanth PRIMARY [id number] [id number] [id number] In dical 086 [place] 2021-10-22 2021-10-22 [facility] [id number] Univers 15:50:00 15:50:[address] [facility] 2021-10-14 2021-10-14 [facility] [id number] Univers 07:30:00 23:59:[address] [facility] 2021-10-14 2021-10-14 [facility] [id number] Univers 07:30:00 23:59:00 Encounter [facility] [id number] it[id number] [id number] [place] [address] Branch OFFICE BUILDING 2021-09-17 2021-09-17 [facility] [id number] Univers 09:30:00 09:30:00 CHILVANA ity o f [facility] 2021-09-17 2021-09-17 Outpatient R RODRIGUEZ, [facility] [id number] Univers 09:30:00 09:30:00 KESLY kimbroughy o f [facility] 2021-09-16 2021-09-16 Telephone Faillila, [facility] [id number] Univers 00:00:00 00:00:00 Chuckie CHILD [id number] [id number] [phone] In sultana BIRCH [address] [place] [address] 2021-09-10 2021-09-10 Office [facility] [id number] Univers 16:00:00 16:59:59 Visit Chuckie CHILD [id number] ity of CARE [id number] [facility] AT [phone] In sultana [address] 2021-09-10 2021-09-10 Outpatient R FAILLACE, [facility] [id number] Univers 16:00:00 16:59:59 [facility] 2021-09-10 2021-09-10 Outpatient R FAILLACE, [facility] [id number] Univers 16:00:00 16:59:59 [facility] 2021-09-10 2021-09-10 Outpatient R FAILLACE, [facility] [id number] Univers 16:00:00 16:00:00 [facility] 2021-09-10 2021-09-10 Outpatient R FAILLACE, [facility] [id number] Univers 16:00:00 16:00:00 [facility] 2021-09-10 2021-09-10 Outpatient R FAILLACE, [facility] [id number] Univers 15:20:00 15:20:00 [facility] 2021-09-10 2021-09-10 Orders Doctor CHUCKIE [id number] Univers 00:00:00 00:00:00 Only Unassigned, MOLLY [id number] ity of [place] [facility] [id number] [place] as [id number] [facility] 009 [place] 2021-09-05 2021-09-05 Telephone [facility] [id number] Univers 00:00:00 00:00:00 Chuckie PRIMARY [id number] [id number] [id number] In sultana Santizo [place] 2021-08-25 2021-08-25 Telephone [facility] [id number] Univers 00:00:00 00:00:00 Chuckie SPECIALTY [id number] [id number] [id number] In sultana BIRCH [address] [place] [address] 2021-08-20 2021-08-20 Outpatient R FAILCTKENNEDY, [facility] [id number] Univers 13:45:00 15:01:[address] [facility] 2021-08-20 2021-08-20 [address] Surgeon Vls-Lab [facility] [id number] Univers 13:45:00 14:00:00 Visit Chuckie Del Rosario [id number] [id number] [id number] In sultana BIRCH [address] [facility] 2021-08-20 2021-08-20 Outpatient R FAILCTCE, [facility] [id number] Univers 13:45:00 13:45:00 CHUCKIE [facility] 2021-08-20 2021-08-20 Outpatient R FAILCTCE, [facility] [id number] Univers 12:40:00 13:31:[address] [facility] 2021-08-20 2021-08-20 Office [facility] [id number] Univers 12:40:00 13:31:32 Visit Chuckie SPECIALTY [id number] [id number] [id number] In sultana BIRCH 198 [facility] 2021-08-13 2021-08-13 Telephone [facility] [id number] Univers 00:00:00 00:00:00 Chuckie SPECIALTY [id number] [id number] [phone] In sultana Santizo [facility] 2021-07-16 2021-07-16 Patient [facility] [id number] Univers 00:00:00 00:00:00 Secure Msg Chuckie SPECIALTY [id number] [id number] [id number] In sultana Santizo [facility] 2021-07-02 2021-07-02 Outpatient R [facility] [id number] Univers 12:50:00 12:50:[address] [facility] 2021-06-11 2021-06-11 Orders Doctor CHUCKIE [id number] Univers 00:00:00 00:00:00 Only Unassigned, MOLLY [id number] ity of [place] [facility] [id number] [place] [id number] [address] 2021-05-28 2021-05-28 Patient Doctor CHUCKIE [id number] Univers 00:00:00 00:00:00 Secure Msg Unassigned, MOLLY [id number] ity of [place] [facility] [id number] [place] [id number] [facility] 019 [place] 2021-05-21 2021-05-21 [facility] [id number] Univers 11:00:00 11:00:[address] [facility] 2021-05-21 2021-05-21 Orders Doctor CHUCKIE [id number] Univers 00:00:00 00:00:00 Only Unassigned, MOLLY [id number] ity of [place] [facility] [id number] [place] [id number] [address] 2021-04-16 2021-04-16 Outpatient R [facility] [id number] Univers 09:40:00 09:40:[address] [facility] 2021-04-02 2021-04-02 [facility] [id number] Univers 16:34:17 23:59:00 Encounter Chuckie SPECIALTY [id number] [id number] [phone] In sultana BIRCH 809 [facility] 2021-04-02 2021-04-02 Office [facility] [id number] Univers 16:29:45 17:01:34 Visit Chuckie SPECIALTY [id number] ity of CARE [id number] [facility] CENTER AT [id number] In sultana BIRCH 198 [facility] 2021-04-02 2021-04-02 Outpatient R [facility] [id number] Univers 16:00:00 17:01:[address] [facility] 2021-03-26 2021-03-26 Orders Doctor CHUCKIE [id number] Univers 00:00:00 00:00:00 Only Unassigned, MOLLY [id number] ity of [place] [facility] [id number] [place] [phone] [address] Results This patient has no known results.
--- NOTE | 2023-05-16 01:37 | ER ---
Nurse's Notes [facility] Name: Claudio Calero Age: 62 yrs Sex: Male : 1960 Arrival Date: 05/16/2023 Time: 01:03 Bed 9 Private MD: Diagnosis: Other mucopurulent conjunctivitis, left eye Presentation: 05/16 01:09 Chief complaint: Patient states: left eye reddened, draining, and swelling that started as6 tonight. Coronavirus screen: At this time, the client does not indicate any symptoms associated with coronavirus-19. Ebola Screen: No symptoms or risks identified at this time. Initial Sepsis Screen: Does the patient meet any 2 criteria? No. Patient's initial sepsis screen is negative. Does the patient have a suspected source of infection? No. Patient's initial sepsis screen is negative. Risk Assessment: Do you want to hurt yourself or someone else? Patient reports no desire to harm self or others. Onset of symptoms was May 15, 2023. 01:09 Method Of Arrival: Ambulatory as6 01:09 Acuity: EVELYN 5 as6 Triage Assessment: 01:15 General: Appears in no apparent distress. Behavior is calm, cooperative. Pain: Denies as6 pain. EENT: Eyes are tearing on outer aspect of conjuctiva of left eye, iris of left eye and inner aspect of conjunctiva of left eye with exudate noted from inner aspect of conjunctiva of left eye. Neuro: Level of Consciousness is awake, alert, obeys commands, Oriented to person, place, time, situation. Cardiovascular: Capillary refill < 3 seconds Patient's skin is warm and dry. Respiratory: Respiratory effort is even, unlabored, Respiratory pattern is regular, symmetrical. GI: No deficits noted. No signs and/or symptoms were reported involving the gastrointestinal system. : No deficits noted. No signs and/or symptoms were reported regarding the genitourinary system. Derm: Skin is intact, is healthy with good turgor. Musculoskeletal: Circulation, motion, and sensation intact. Historical: - Allergies: 01:12 Sulfa (Sulfonamide Antibiotics); as6 - PMHx: 01:12 deviated septum; Diabetes - NIDDM; GERD; Gout; Hernia; Hypertension; as6 - PSHx: 01:12 shoulder (Hypertension); hernia (Hypertension); hand (Hypertension); knee as6 (Hypertension); - Immunization history:: Adult Immunizations up to date. - Social history:: Smoking status: Patient denies any tobacco usage or history of. Screenin:16 [facility] ED Fall Risk Assessment (Adult) Score/Fall Risk Level 0 - 2 = Low Risk. Abuse as6 screen: Denies threats or abuse. Denies injuries from another. Nutritional screening: No deficits noted. Tuberculosis screening: No symptoms or risk factors identified. Assessment: 01:49 General: see triage assessment . as6 Vital Signs: 01:09 BP 161 / 98; Pulse 87; Resp 18 S; Temp 98.3(TE); Pulse Ox 100% on R/A; Weight 129.27 kg as6 (R); Height 5 ft. 8 in. (R); Pain 0/10; 01:09 Body Mass Index 43.33 (129.27 kg, 172.72 cm) as6 01:09 Pain Scale: Adult as6 ED Course: 01:05 Patient arrived in ED. [email or web address] 01:09 Reinaldo Rouse DO is Attending Physician. ms3 01:12 Triage completed. as6 01:14 Rusty Rogers, RN is Primary Nurse. as6 01:14 Arm band placed on. as6 01:16 Bed in low position. Call light in reach. as6 01:37 Vinayak Avila MD is Referral Physician. ms3 01:48 Provided Education on: abx teaching. as6 01:48 No provider procedures requiring assistance completed. Patient did not have IV access as6 during this emergency room visit. Administered Medications: 01:40 Not Given (Other Intervention Used): tobramycindrops (0.3 %) 2 drops Ophthalmic once as6 01:48 Drug: Tobrex Ophthalmic Ointment 0.3 % 1 application Ophthalmic in left eye once Route: as6 Ophthalmic; Site: left eye; 01:48 Follow up: Response: No adverse reaction as6 Medication: :16 VIS not applicable for this client. as6 Outcome: 01:37 Discharge ordered by . ms3 01:48 Discharged to home ambulatory, as6 01:48 Condition: stable 01:48 Discharge instructions given to patient, Instructed on discharge instructions, follow up and referral plans. medication usage, Demonstrated understanding of instructions, follow-up care, medications, Prescriptions given X 1, 01:49 Patient left the ED. as6 Signatures: Reinaldo Rouse DO DO ms3 Bella Carlin jj6 Rusty Rogers, RN RN as6
--- NOTE | 2023-05-16 01:37 | EDPHYS ---
Physician Documentation [facility] Name: Claudio Calero Age: 62 yrs Sex: Male : 1960 Arrival Date: 05/16/2023 Time: 01:03 Bed 9 Private MD: ED Physician Reinaldo Rouse HPI: 05/16 01:37 This 62 yrs old Male presents to ER via Ambulatory with complaints of Eye ms3 Problem. 01:37 62-year-old male with past medical history of diabetes, GERD, gout, hypertension ms3 presents to the emergency department for left eye itching, drainage that began today. Patient denies pain or vision changes. Patient denies any alleviating or inciting factors. Historical: - Allergies: 01:12 Sulfa (Sulfonamide Antibiotics); as6 - PMHx: 01:12 deviated septum; Diabetes - NIDDM; GERD; Gout; Hernia; Hypertension; as6 - PSHx: 01:12 shoulder (Hypertension); hernia (Hypertension); hand (Hypertension); knee as6 (Hypertension); - Immunization history:: Adult Immunizations up to date. - Social history:: Smoking status: Patient denies any tobacco usage or history of. ROS: 01:37 Constitutional: Negative for fever, and chills. ms3 01:37 Cardiovascular: Negative for chest pain, and palpitations. Respiratory: Negative for shortness of breath, cough, wheezing, and pleuritic chest pain, Abdomen/GI: Negative for abdominal pain, nausea, vomiting, diarrhea, and constipation, MS/Extremity: Negative for injury and deformity, Skin: Negative for injury, rash, and discoloration, 01:37 Eyes: Positive for discharge, itching, redness, 01:37 All other systems are negative, Exam: 01:37 Constitutional: This is a well developed, well nourished patient who is awake, alert, ms3 and in no acute distress. Head/Face: Normocephalic, atraumatic. 01:37 Cardiovascular: Regular rate and rhythm with a normal S1 and S2. No gallops, murmurs, or rubs. Normal PMI, no JVD. No pulse deficits. Respiratory: Lungs have equal breath sounds bilaterally, clear to auscultation and percussion. No rales, rhonchi or wheezes noted. No increased work of breathing, no retractions or nasal flaring. Abdomen/GI: Soft, non-tender, with normal bowel sounds. No distension or tympany. No guarding or rebound. No evidence of tenderness throughout. 01:37 Eyes: Pupils: equal, round, and reactive to light and accomodation, Extraocular movements: intact throughout, Conjunctiva: injected, in the left eye, Vital Signs: 01:09 BP 161 / 98; Pulse 87; Resp 18 S; Temp 98.3(TE); Pulse Ox 100% on R/A; Weight 129.27 kg as6 (R); Height 5 ft. 8 in. (R); Pain 0/10; 01:09 Body Mass Index 43.33 (129.27 kg, 172.72 cm) as6 01:09 Pain Scale: Adult as6 MDM: 01:36 Patient medically screened. ms3 01:37 Differential diagnosis: Allergic conjunctivitis in left eye. Infectious conjunctivitis ms3 in left eye. Data reviewed: vital signs, nurses notes, and as a result, I will discharge patient. Care significantly affected by the following chronic conditions: Diabetes, Hypertension. Counseling: I had a detailed discussion with the patient and/or guardian regarding the historical points, exam findings, and any diagnostic results supporting the discharge/admit diagnosis, the need for outpatient follow up, to return to the emergency department if symptoms worsen or persist or if there are any questions or concerns that arise at home. Special discussion: I discussed with the patient/guardian in detail that at this point there is no indication for admission to the hospital. It is understood, however, that if the symptoms persist or worsen the patient needs to return immediately for re-evaluation. ED course: Discussed physical exam findings with patient. Patient to follow-up Dr. Avila in 1-2 days. Patient understands and agrees with plan. All questions were answered. Return precautions discussed include worsening symptoms, or any other concerns. Administered Medications: 01:40 Not Given (Other Intervention Used): tobramycindrops (0.3 %) 2 drops Ophthalmic once as6 01:48 Drug: Tobrex Ophthalmic Ointment 0.3 % 1 application Ophthalmic in left eye once Route: as6 Ophthalmic; Site: left eye; 01:48 Follow up: Response: No adverse reaction as6 Disposition Summary: 05/16/23 01:37 Discharge Ordered Notes: Location: Home ms3 Condition: Stable ms3 Diagnosis - Other mucopurulent conjunctivitis, left eye ms3 Followup: ms3 - With: Private Physician - When: 2 - 3 days - Reason: Recheck today's complaints Followup: ms3 - With: Vinayak Avila MD - When: 1 - 2 days - Reason: Recheck today's complaints Discharge Instructions: - Discharge Summary Sheet ms3 - Bacterial Conjunctivitis, Adult, Sjmo-ya-[place] ms3 Forms: - Medication Reconciliation Form ms3 - Thank You Letter ms3 - Antibiotic Education ms3 - Prescription Opioid Use ms3 - Patient Portal Instructions ms3 - Leadership Thank You Letter ms3 Prescriptions: - Vigamox 0.5 % Ophthalmic Drops - instill 1 drop OPHTHALMIC route every 8 hours for 7 days; 5 milliliter; ms3 Refills: 0, Product Selection Permitted Signatures: Reinaldo Rouse DO DO ms3 Rusty Rogers, RN RN as6
[2023-05-16 01:53] VITALS: BP 161/98; TEMP 98.3; O2SAT 100
[2023-05-16] MEDS ORDERED: TOBRAMYCIN SULF 0.3% OPTH OINT ONE (01:53)
== END 2023-05-16 01:49 | disposition home or self-care (01) ==
LOC: ER 01:03
DX: H10.022 Other mucopurulent conjunctivitis, left eye (principal)
CPT/HCPCS: 99283

== ENCOUNTER → 2023-08-19 | Emergency (ER) | payer OTHER ==
[~2023-08-19] MED LIST: dexAMETHasone 10 MG/ML VIAL ONE
--- OUTSIDE RECORDS SUMMARY | 2023-08-19 07:38 | XMS REPORT | Continuity of Care Document ---
Author Name Unknown Address [address] [facility] [address] [place] [address] [facility] thconnect Address [address] [facility] [address] [place] [address] Care Team Providers Care Choir Leader Name Role Phone Kimberly Randolph Primary Care Physician [phone] Chuckie Del Rosario MD Attending Clinician [phone] Doctor Unassigned, [place] Attending Clinician U Prashanth Angel MD Attending Clinician [phone] CHUCKIE DEL ROSARIO Attending Clinician Unavailable JANUARY BOSS Attending Clinician Unavailable January Boss MD Attending Clinician [phone] KELSY RODRIGUEZ Attending Clinician Unavailable [facility] Attending Clinician Unavailable CHUCKIE DEL ROSARIO Admitting Clinician Unavailable Payers Payer Name Policy Type Policy Number Effective Date Expirati on Date Source Problems Condition Name Condition Details Condition Category Status Onset Date Resolution Date Last Treatment Date Treating Clinician Comments Source No known active problems No known active problems Disease [facility] Allergies, Adverse Reactions, Alerts Allergy Name Allergy Type Status Severity Reaction(s) Onset Date Inactive Date Treating Clinician Comments Source NO KNOWN ALLERGIE S Drug Class Active [facility] Social History Social Habit Start Date Stop Date Quantity Comments Source Sexual orientation U [facility] Exposure to SARS-CoV-2 (event) 2021-10-04 00:00:00 2021-10-14 10:29:[address] [facility] Sex Assigned At 1960 00:00:00 1960 00:00:[address] [facility] Smoking Status Start Date Stop Date Source Tobacco smoking consumption unknown [facility] Medications Ordered Medication Name Filled Medication Name Start Date Stop Date Current Medication? Ordering Clinician Indication Dosage Frequency Signature (SIG) Comments Components Source meloxicam (MOBIC) 7.5 mg tablet 08-20 00:00: 00 Yes 7.5mg Take 1 tablet by mouth daily. [facility] meloxicam (MOBIC) 7.5 mg tablet 08-20 00:00: 00 Yes 7.5mg Take 1 tablet by mouth daily. [facility] 7.5 mg tablet 08-20 00:00: 00 Yes 7.5mg Take 1 tablet by mouth daily. [facility] Immunizations Ordered Immunization Name Filled Immunization Name Date Status Comments Source SARS-COV-2 COVID-19 PFIZER VACCINE 2020-08-15 00:00:[address] [facility] SARS-COV-2 COVID-19 PFIZER VACCINE 2020-08-15 00:00:[address] [facility] SARS-COV-2 COVID-19 PFIZER VACCINE 2020-08-15 00:00:[address] [facility] SARS-COV-2 COVID-19 PFIZER VACCINE 2020-07-25 00:00:[address] [facility] SARS-COV-2 COVID-19 PFIZER VACCINE 2020-07-25 00:00:[address] [facility] SARS-COV-2 COVID-19 PFIZER VACCINE 2020-07-25 00:00:[address] [facility] SARS-COV-2 COVID-19 PFIZER VACCINE Unknown Completed [facility] SARS-COV-2 COVID-19 PFIZER VACCINE Unknown Completed [facility] Procedures Procedure Date / Time Performed Performing Clinician Source AUTHORIZATION FOR RELEASE OF PHI 2021-12-25 05:01:00 Doctor Unassigned, [place] [facility] Encounters Start Date/Time End Date/Time Encounter Type Admission Type Attending Clinicians Care Facility Care Department Encounter ID Source 2022-06-02 00:00:00 2022-06-02 00:00:00 Telephone Chuckie Del Rosario [facility] [id number] 350.1.13.10 4.2.7.2.686 [id number] [facility] 2022-03-13 09:00:00 2022-03-13 09:00:00 Outpatient R [facility] [id number] [facility] 2021-12-25 00:00:00 2021-12-25 00:00:00 Orders Only Doctor Unassigned, [place] [facility] 1..840.114 350.1.13.10 4.2.7.2.686 [id number] [facility] 2021-12-19 09:00:00 2021-12-19 09:00:00 Outpatient R [facility] [id number] [facility] 2021-12-04 00:00:00 2021-12-04 00:00:00 Telephone Prashanth Gibbs [facility] 1..840.114 350.1.13.10 4.2.7.2.686 [id number] [facility] 2021-10-22 15:50:00 2021-10-22 15:50:00 Outpatient R CHUCKIE DEL ROSARIO [facility] [id number] [facility] 2021-10-14 07:30:00 2021-10-14 23:59:00 Outpatient R JANUARY BOSS [facility] [id number] [facility] 2021-10-14 07:30:00 2021-10-14 23:59:00 Hospital Encounter January Boss [facility] 1..840.114 350.1.13.10 4.2.7.2.686 [id number] [facility] 2021-09-17 09:30:00 2021-09-17 09:30:00 Outpatient R KELSY RODRIGUEZ [facility] [id number] [facility] 2021-09-17 09:30:00 2021-09-17 09:30:00 Outpatient R KELSY RODRIGUEZ [facility] [id number] [facility] 2021-09-16 00:00:00 2021-09-16 00:00:00 Telephone Chuckie Del Rosario [facility] 1..840.114 350.1.13.10 4.2.7.2.686 [id number] [facility] 2021-09-10 16:00:00 2021-09-10 16:59:59 Office Visit Chuckie Del Rosario [facility] 1..840.114 350.1.13.10 4.2.7.2.686 [id number] [facility] 2021-09-10 16:00:00 2021-09-10 16:59:59 Outpatient R CHUCKIE DEL ROSARIO [facility] [id number] [facility] 2021-09-10 16:00:00 2021-09-10 16:59:59 Outpatient R CHUCKIE DEL RSOARIO [facility] [id number] [facility] 2021-09-10 16:00:00 2021-09-10 16:00:00 Outpatient R CHUCKIE DEL ROSARIO [facility] [id number] [facility] 2021-09-10 16:00:00 2021-09-10 16:00:00 Outpatient R CHUCKIE DEL ROSARIO [facility] [id number] [facility] 2021-09-10 15:20:00 2021-09-10 15:20:00 Outpatient R CHUCKIE DEL ROSARIO [facility] [id number] [facility] 2021-09-10 00:00:00 2021-09-10 00:00:00 Orders Only Doctor Unassigned, [place] [facility] 1..840.114 350.1.13.10 4.2.7.2.686 [id number] [facility] 2021-09-05 00:00:00 2021-09-05 00:00:00 Telephone Chuckie Del Rosario [facility] 1840.114 350.1.13.10 4.2.7.2.686 [id number] [facility] 2021-08-25 00:00:00 2021-08-25 00:00:00 Telephone Chuckie Del Rosario [facility] 1..840.114 350.1.13.10 4.2.7.2.686 [id number] [facility] 2021-08-20 13:45:00 2021-08-20 15:01:18 Outpatient R [facility] [id number] [facility] 2021-08-20 13:45:00 2021-08-20 14:00:00 Territory Sales Manager Medical Visit [facility] Miguel Ángel [facility] .840.114 350.1.13.10 4.2.7.2.686 [id number] [facility] 2021-08-20 13:45:00 2021-08-20 13:45:00 Outpatient R [facility] [id number] [facility] 2021-08-20 12:40:00 2021-08-20 13:31:32 Outpatient R CHUCKIE DEL ROSARIO [facility] [id number] [facility] 2021-08-20 12:40:00 2021-08-20 13:31:32 Office Visit Miguel Ángel [facility] .840.114 350.1.13.10 4.2.7.2.686 [id number] [facility] 2021-08-13 00:00:00 2021-08-13 00:00:00 [facility].114 350.1.13.10 4.2.7.2.686 [id number] [facility] 2021-07-16 00:00:00 2021-07-16 00:00:00 Patient Secure Msg Miguel Ángel [facility] 1.840.114 350.1.13.10 4.2.7.2.686 [id number] [facility] 2021-07-02 12:50:00 2021-07-02 12:50:00 Outpatient R [facility] [id number] [facility] 2021-06-11 00:00:00 2021-06-11 00:00:00 Orders Only Doctor Unassigned, [place] [facility] .840.114 350.1.13.10 4.2.7.2.686 [id number] [facility] 2021-05-28 00:00:00 2021-05-28 00:00:00 Patient Secure Msg Doctor Unassigned, [place] [facility] 1.840.114 350.1.13.10 4.2.7.2.686 [id number] [facility] 2021-05-21 11:00:00 2021-05-21 11:00:00 Outpatient R [facility] [id number] [facility] 2021-05-21 00:00:00 2021-05-21 00:00:00 Orders Only Doctor Unassigned, [place] [facility] 1.2840.114 350.1.13.10 4.2.7.2.686 [id number] [facility] 2021-04-16 09:40:00 2021-04-16 09:40:00 Outpatient R [facility] [id number] [facility] 2021-04-02 16:34:17 2021-04-02 23:59:00 Hospital Encounter Miguel Ángel [facility] 1.840.114 350.1.13.10 4.2.7.2.686 [id number] [facility] 2021-04-02 16:29:45 2021-04-02 17:01:34 Office Visit Chuckie Del Rosario [facility] 1.2.840.114 350.1.13.10 4.2.7.2.686 [id number] [facility] 2021-04-02 16:00:00 2021-04-02 17:01:34 Outpatient R CHUCKIE DEL ROSARIO [facility] [id number] [facility] 2021-03-26 00:00:00 2021-03-26 00:00:00 Orders Only Doctor Unassigned, [place] [facility] 1.2.840.114 350.1.13.10 4.2.7.2.686 [id number] [facility]
[2023-08-19 08:21] LABS: Absolute Basophils 0.1 K/uL (0-0.5); Absolute Lymphocytes (CBC) 1.6 K/uL (0.7-4.9); Basophils % 1.5 % (0-1.3); Hematocrit 41.4 % (39.6-49.0); MCV 85.7 fL (80-100); Platelets 274 thou/uL (152-406); RBC Red Blood Cell Count 4.83 M/uL (4.33-5.43)
[2023-08-19 08:31] LABS: Anion Gap 11.4 mEq/L (5.0-15.0); Potassium 4.4 mEq/L (3.5-5.1); Troponin High Sensitivity 4.9 pg/mL (<58.9)
--- NOTE | 2023-08-19 08:56 | RAD REPORT ---
EXAM DESCRIPTION: Carmen Single View08/19/2023 8:44 am CLINICAL HISTORY: Cough COMPARISON: 2021 FINDINGS: The lungs appear clear of acute infiltrate. The heart is normal size IMPRESSION: No acute abnormalities displayed
--- NOTE | 2023-08-19 09:04 | ER ---
Nurse's Notes [facility] Name: Claudio Calero Age: 62 yrs Sex: Male : 1960 Arrival Date: 08/19/2023 Time: 07:35 Bed 5 Private MD: Diagnosis: Cough;Dyspnea, unspecified Presentation: 08/18 07:43 Chief complaint: "since May I've been dealing with respiratory allergy stuff and aa5 recently I was put on steroids and an inhaler but today I felt like I couldn't breathe and couldn't sleep". 07:43 Onset of symptoms was August 19, 2023. aa5 07:43 Acuity: EVELYN 3 aa5 07:43 Risk Assessment: Do you want to hurt yourself or someone else? Patient reports no aa5 desire to harm self or others. 07:43 Initial Sepsis Screen: Does the patient meet any 2 criteria? No. Patient's initial aa5 sepsis screen is negative. Does the patient have a suspected source of infection? No. Patient's initial sepsis screen is negative. 07:43 Coronavirus screen: congestion. Ebola Screen: Patient denies travel to an aa5 Ebola-affected area in the 21 days before illness onset. 07:43 Method Of Arrival: Ambulatory aa5 Triage Assessment: 08:06 General: Appears in no apparent distress. Behavior is calm, cooperative. Pain: Denies kd3 pain. Historical: - Allergies: 07:43 Sulfa (Sulfonamide Antibiotics); aa5 - PMHx: 07:43 deviated septum; Diabetes - NIDDM; GERD; Gout; Hernia; Hypertension; aa5 - PSHx: 07:43 hernia; knee (Unknown); Shoulder (Unknown); aa5 - Immunization history:: Adult Immunizations unknown. - Social history:: Smoking status: Patient denies any tobacco usage or history of. Screenin:06 [facility] ED Fall Risk Assessment (Adult) History of falling in the last 3 months, kd3 including since admission No falls in past 3 months (0 pts) Confusion or Disorientation No (0 pts) Intoxicated or Sedated No (0 pts) Impaired Gait No (0 pts) Mobility Assist Device Used No (0 pt) Altered Elimination No (0 pt) Score/Fall Risk Level 0 - 2 = Low Risk Oriented to surroundings. Abuse screen: Denies threats or abuse. Denies injuries from another. Nutritional screening: No deficits noted. Tuberculosis screening: No symptoms or risk factors identified. Assessment: 08:08 General: Appears in no apparent distress. Behavior is calm, cooperative. General: Pt kd3 seen sitting in the chair in the room. Pt has a notable strong cough when taking deep breaths. Pt does not appear in any distress at this time. IV access obtained in the right A/C, blood work collected and sent to the lab. . Neuro: Level of Consciousness is awake, alert, obeys commands, Oriented to person, place, time, situation. Cardiovascular: Patient's skin is warm and dry. Respiratory: Airway is patent Trachea midline Respiratory effort is even, unlabored, Respiratory pattern is regular, symmetrical. 08:13 General: technician telecommunication systems at bedside for EKG and to place pt on the monitor. . kd3 08:55 Reassessment: Patient appears in no apparent distress at this time. Patient and/or nj1 family updated on plan of care and expected duration. Pain level reassessed. Patient is alert, oriented x 3, equal unlabored respirations, skin warm/dry/pink. Patient denies pain at this time. 09:37 Reassessment: Patient appears in no apparent distress at this time. Patient is alert, nj1 oriented x 3, equal unlabored respirations, skin warm/dry/pink. Patient states feeling better. Patient states symptoms have improved. Vital Signs: 07:43 BP 149 / 86; Pulse 76; Resp 18 S; Temp 97.6(O); Pulse Ox 96% on R/A; Weight 127.01 kg aa5 (R); Height 5 ft. 8 in. (R); 08:50 BP 148 / 86; Pulse 66; Resp 18; Pulse Ox 97% ; nj1 09:37 BP 149 / 86; Pulse 76; Resp 18; Pulse Ox 100% on R/A; nj1 07:43 Body Mass Index 42.57 (127.01 kg, 172.72 cm) aa5 ED Course: 07:39 Patient arrived in ED. mg5 07:43 George Olvera MD is Attending Physician. ec2 07:43 Arm band placed on. aa5 07:49 Norah No, VIVIENNE is Primary Nurse. kd3 07:55 Triage completed. aa5 08:06 No provider procedures requiring assistance completed. Inserted saline lock: 20 gauge kd3 in right antecubital area, using aseptic technique. Blood collected. 08:07 Patient has correct armband on for positive identification. Provided Education on: EKG. kd3 08:07 Basic Metabolic Panel Sent. kd3 08:07 CBC with Diff Sent. kd3 08:07 NT PRO-BNP Sent. kd3 08:07 Troponin HS Sent. kd3 08:45 XRAY Chest (1 view) In Process Unspecified. EDMS 09:37 IV discontinued, intact, bleeding controlled. nj1 Administered Medications: 09:21 Drug: Decadron - Dexamethasone IVP 10 mg IVP once Route: IVP; Site: right antecubital; nj1 09:38 Follow up: Response: No adverse reaction nj1 Medication: 08:07 VIS not applicable for this client. kd3 Outcome: 09:03 Discharge ordered by . ec2 09:37 Discharged to home ambulatory, nj1 09:37 Condition: stable 09:37 Discharge instructions given to patient, Instructed on discharge instructions, follow up and referral plans. Demonstrated understanding of instructions, follow-up care, 09:38 Patient left the ED. nj1 Signatures: Dispatcher [employer] Francisca Harrell RN RN aa5 Norah No RN RN kd3 Kelly Armijo RN RN nj1 Jaz Moseley 5 George Olvera MD MD ec2
--- NOTE | 2023-08-19 09:04 | EDPHYS ---
Physician Documentation [facility] Name: Claudio Calero Age: 62 yrs Sex: Male : 1960 Arrival Date: 08/19/2023 Time: 07:35 Bed 5 Private MD: ED Physician George Olvera HPI: 08/18 07:55 This 62 yrs old Male presents to ER via Unassigned with complaints of seasonal ec2 allergies. 07:55 Patient arrives today for 3 months of congestion and cough and shortness of breath. ec2 Patient reports that he was diagnosed with allergies, recently had a steroid injection and improved symptoms. Patient reports no fevers or chills, nausea or vomiting. States that he had some increased shortness of breath last night which is what prompted evaluation today. Denies any chest pain. History of hypertension, hyperlipidemia, diabetes.. Historical: - Allergies: 07:43 Sulfa (Sulfonamide Antibiotics); aa5 - PMHx: 07:43 deviated septum; Diabetes - NIDDM; GERD; Gout; Hernia; Hypertension; aa5 - PSHx: 07:43 hernia; knee (Unknown); Shoulder (Unknown); aa5 - Immunization history:: Adult Immunizations unknown. - Social history:: Smoking status: Patient denies any tobacco usage or history of. ROS: 07:55 Constitutional: as per hpi ec2 Exam: 07:55 Constitutional: GEN: NAD Head: atraumatic Eyes: EOMI Ears: External ears are ec2 normal. CV: regular rate LUNGS: no respiratory distress, no wheezes, rales, rhonchi ABD: non-distended SKIN: no evidence of rashes MSK: no evidence of trauma NEURO: moves all extremities equally Vital Signs: 07:43 BP 149 / 86; Pulse 76; Resp 18 S; Temp 97.6(O); Pulse Ox 96% on R/A; Weight 127.01 kg aa5 (R); Height 5 ft. 8 in. (R); 08:50 BP 148 / 86; Pulse 66; Resp 18; Pulse Ox 97% ; nj1 09:37 BP 149 / 86; Pulse 76; Resp 18; Pulse Ox 100% on R/A; nj1 07:43 Body Mass Index 42.57 (127.01 kg, 172.72 cm) aa5 MDM: 07:43 Patient medically screened. ec2 07:55 Data reviewed: vital signs. ED course: Patient arrives today for evaluation of ec2 shortness of breath. Examination remarkable for well-appearing nontoxic dividual is otherwise in no acute distress. Will obtain lab work, EKG, chest x-ray. Currently evaluating for rash such as pneumonia, CHF. Additionally considering viral infection, allergies.. 08:23 ED course: EKG independently reviewed and interpreted by me, shows normal sinus rhythm, ec2 rate of 71, no acute ST segment elevations, nonconcerning intervals.. 08:37 ED course: Metabolic profile shows hyperglycemia, renal dysfunction with a creatinine ec2 of 1.33 and GFR of 60. CBC is reassuring, BNP and troponin are within appropriate ranges. Ultimately do not feel repeat EKG and troponin will be beneficial in the setting given the duration of symptoms. Chest x-ray independently reviewed and interpreted by me, shows no acute intrathoracic process . 08:38 ED course: Metabolic profile compared to external records, GFR and creatinine appears ec2 similar.. 03 07:54 Order name: Basic Metabolic Panel; Complete Time: 08:36 ec2 08/18 07:54 Order name: CBC with Diff; Complete Time: 08:36 ec2 08/18 07:54 Order name: NT PRO-BNP; Complete Time: 08:36 ec2 08/18 07:54 Order name: Troponin HS; Complete Time: 08:36 ec2 08/18 07:54 Order name: XRAY Chest (1 view); Complete Time: 09:03 ec2 08/18 07:54 Order name: EKG; Complete Time: 07:55 ec2 08/18 07:54 Order name: Cardiac monitoring; Complete Time: 08:22 ec2 08/18 07:54 Order name: EKG - Nurse/Tech; Complete Time: 08:22 ec2 08/18 07:54 Order name: IV Saline Lock; Complete Time: 08:07 ec2 08/18 07:54 Order name: Labs collected and sent; Complete Time: 08:07 ec2 08/18 07:54 Order name: O2 Per Protocol; Complete Time: 08:07 ec2 08/18 07:54 Order name: O2 Sat Monitoring; Complete Time: 08:07 ec2 Administered Medications: 09:21 Drug: Decadron - Dexamethasone IVP 10 mg IVP once Route: IVP; Site: right antecubital; nj1 09:38 Follow up: Response: No adverse reaction nj1 Disposition Summary: 08/19/23 09:03 Discharge Ordered Notes: Location: Home ec2 Condition: Stable ec2 Diagnosis - Cough ec2 - Dyspnea, unspecified ec2 Followup: ec2 - With: Private Physician - When: - Reason: Re-evaluation by your physician Discharge Instructions: - Discharge Summary Sheet ec2 - Allergies, Adult ec2 Forms: - Medication Reconciliation Form ec2 - Thank You Letter ec2 - Antibiotic Education ec2 - Prescription Opioid Use ec2 - Patient Portal Instructions ec2 - Leadership Thank You Letter ec2 Signatures: Dispatcher [employer] Francisca Harrell RN RN aa5 Kelly Armijo RN RN nj1 George Olvera MD MD ec2
[2023-08-19 10:04] VITALS: BP 149/86; TEMP 97.6; O2SAT 100
== END ==
LOC: ER 07:35
DX: R05.9 Cough, unspecified (principal); R06.00 Dyspnea, unspecified; E11.9 Type 2 diabetes mellitus without complications; I10 Essential (primary) hypertension; Z88.2 Allergy status to sulfonamides
CPT/HCPCS: 93005; 85025; 80048; 36415; 84484; 83880; 71045; 96374; 99284; J1100

== ENCOUNTER 2024-07-25 22:15 | Emergency (ER) | payer OTHER ==
--- OUTSIDE RECORDS SUMMARY | 2024-07-25 22:18 | XMS REPORT | Continuity of Care Document ---
Author Name Unknown Address [address] [facility] [address] [place] [address] [facility] thconnect Address [address] [facility] [address] [place] [address] Care Team Providers Care Nematology Teacher Name Role Phone Kimberly Randolph Primary Care Physician [phone] Chuckie Del Rosario MD Attending Clinician [phone] Doctor Unassigned, [place] Attending Clinician U Prashanth Angel MD Attending Clinician [phone] CHUCKIE DEL ROSARIO Attending Clinician Unavailable January Boss MD Attending Clinician [phone] JANUARY BOSS Attending Clinician Unavailable KELSY RODRIGUEZ Attending Clinician Unavailable [facility] Attending Clinician Unavailable CHUCKIE DEL ROSARIO Admitting Clinician Unavailable Payers Payer Name Policy Type Policy Number Effective Date Expirati on Date Source Problems Condition Name Condition Details Condition Category Status Onset Date Resolution Date Last Treatment Date Treating Clinician Comments Source No known active problems No known active problems Disease [facility] Allergies, Adverse Reactions, Alerts Allergy Name Allergy Type Status Severity Reaction(s) Onset Date Inactive Date Treating Clinician Comments Source NO KNOWN ALLERGIE S Drug Class Active [facility] Social History Social Habit Start Date Stop Date Quantity Comments Source [facility] to SARS-CoV-2 (event) 2021-10-04 00:00:00 2021-10-14 10:29:00 Not sure [facility] Sex Assigned At 1960 00:00:00 1960 00:00:00 [facility] Smoking Status Start Date Stop Date Source Tobacco smoking consumption unknown [facility] Medications Ordered Medication Name Filled Medication Name Start Date Stop Date Current Medication? Ordering Clinician Indication Dosage Frequency Signature (SIG) Comments Components Source meloxicam (MOBIC) 7.5 mg tablet 08-20 00:00: 00 Yes 7.5mg Take 1 tablet by mouth daily. [facility] Immunizations Ordered Immunization Name Filled Immunization Name Date Status Comments Source SARS-COV-2 COVID-19 PFIZER VACCINE 2020-08-15 00:00:00 Completed [facility] SARS-COV-2 COVID-19 PFIZER VACCINE 2020-08-15 00:00:00 Completed [facility] SARS-COV-2 COVID-19 PFIZER VACCINE 2020-08-15 00:00:00 Completed [facility] SARS-COV-2 COVID-19 PFIZER VACCINE 2020-07-25 00:00:00 Completed [facility] SARS-COV-2 COVID-19 PFIZER VACCINE 2020-07-25 00:00:00 Completed [facility] SARS-COV-2 COVID-19 PFIZER VACCINE 2020-07-25 00:00:00 Completed [facility] SARS-COV-2 COVID-19 PFIZER VACCINE Unknown Completed [facility] Procedures Procedure Date / Time Performed Performing Clinician Source AUTHORIZATION FOR RELEASE OF PHI 2021-12-25 05:01:00 Doctor Unassigned, [place] [facility] Encounters Start Date/Time End Date/Time Encounter Type Admission Type Attending [facility] Care Facility Care Department Encounter ID Source 2023-11-19 13:13:08 2023-11-19 13:13:08 Outpatient [facility] [id number] [place] 2022-06-02 00:00:00 2022-06-02 00:00:00 Telephone Chuckie Del Rosario [facility] [id number] 350.1.13.10 4.2.7.2.686 [id number] [facility] 2022-03-13 09:00:00 2022-03-13 09:00:00 Outpatient R [facility] [id number] [facility] 2021-12-25 00:00:00 2021-12-25 00:00:00 Orders Only Doctor Unassigned, [place] [facility] 1.840.114 350.1.13.10 4.2.7.2.686 [id number] [facility] 2021-12-19 09:00:00 2021-12-19 09:00:00 Outpatient R [facility] [id number] [facility] 2021-12-04 00:00:00 2021-12-04 00:00:00 Telephone Prashanth Gibbs [facility] 1.840.114 350.1.13.10 4.2.7.2.686 [id number] [facility] 2021-10-22 15:50:00 2021-10-22 15:50:00 Outpatient R CHUCKIE DEL ROSARIO [facility] [id number] [facility] 2021-10-14 07:30:00 2021-10-14 23:59:00 Hospital Encounter January Boss [facility] 1.840.114 350.1.13.10 4.2.7.2.686 [id number] [facility] 2021-10-14 07:30:00 2021-10-14 23:59:00 Outpatient JANUARY BEAR [facility] [id number] [facility] 2021-09-17 09:30:00 2021-09-17 09:30:00 Outpatient KELSY MEDINA [facility] [id number] [facility] 2021-09-17 09:30:00 2021-09-17 09:30:00 Outpatient KELSY MEDINA [facility] [id number] [facility] 2021-09-16 00:00:00 2021-09-16 00:00:00 Telephone Chuckie Del Rosario [facility] 1..840.114 350.1.13.10 4.2.7.2.686 [id number] [facility] 2021-09-10 16:00:00 2021-09-10 16:59:59 Office Visit Chuckie Del Rosario [facility] 1..840.114 350.1.13.10 4.2.7.2.686 [id number] [facility] 2021-09-10 16:00:00 2021-09-10 16:59:59 Outpatient R CHUCKIE DEL ROSARIO [facility] [id number] [facility] 2021-09-10 16:00:00 2021-09-10 16:59:59 Outpatient R CHUCKIE DEL ROSARIO [facility] [id number] [facility] 2021-09-10 16:00:00 2021-09-10 16:00:00 Outpatient R CHUCKIE DEL ROSARIO [facility] [id number] [facility] 2021-09-10 16:00:00 2021-09-10 16:00:00 Outpatient R CHUCKIE DEL ROSARIO [facility] [id number] [facility] 2021-09-10 15:20:00 2021-09-10 15:20:00 Outpatient R CHUCKIE DEL ROSARIO [facility] [id number] [facility] 2021-09-10 00:00:00 2021-09-10 00:00:00 Orders Only Doctor Unassigned, [place] [facility] 1.840.114 350.1.13.10 4.2.7.2.686 [id number] [facility] 2021-09-05 00:00:00 2021-09-05 00:00:00 Telephone Chuckie Del Rosario [facility] 1..840.114 350.1.13.10 4.2.7.2.686 [id number] [facility] 2021-08-25 00:00:00 2021-08-25 00:00:00 [facility] 1.2840.114 350.1.13.10 4.2.7.2.686 [id number] [facility] 2021-08-20 13:45:00 2021-08-20 15:01:18 Outpatient R CHUCKIE DEL ROSARIO [facility] [id number] [facility] 2021-08-20 13:45:00 2021-08-20 14:00:00 Assembler Clip On Sunglasses Visit [facility] .840.114 350.1.13.10 4.2.7.2.686 [id number] [facility] 2021-08-20 13:45:00 2021-08-20 13:45:00 Outpatient R CHUCKIE DEL ROSARIO [facility] [id number] [facility] 2021-08-20 12:40:00 2021-08-20 13:31:32 Outpatient R CHUCKIE DEL ROSARIO [facility] [id number] [facility] 2021-08-20 12:40:00 2021-08-20 13:31:32 Office Visit [facility] .840.114 350.1.13.10 4.2.7.2.686 [id number] [facility] 2021-08-13 00:00:00 2021-08-13 00:00:00 Telephone [facility] .840.114 350.1.13.10 4.2.7.2.686 [id number] [facility] 2021-07-16 00:00:00 2021-07-16 00:00:00 Patient Secure Msg [facility] 1.2.840.114 350.1.13.10 4.2.7.2.686 [id number] [facility] 2021-07-02 12:50:00 2021-07-02 12:50:00 Outpatient CHUCKIE GONSALVES [facility] [id number] [facility] 2021-06-11 00:00:00 2021-06-11 00:00:00 Orders Only Doctor Unassigned, [place] [facility] 1.20.114 350.1.13.10 4.2.7.2.686 [id number] [facility] 2021-05-28 00:00:00 2021-05-28 00:00:00 Patient Secure Msg Doctor Unassigned, [place] [facility] 1.2.114 350.1.13.10 4.2.7.2.686 [id number] [facility] 2021-05-21 11:00:00 2021-05-21 11:00:00 Outpatient CHUCKIE GONSALVES [facility] [id number] [facility] 2021-05-21 00:00:00 2021-05-21 00:00:00 Orders Only Doctor Unassigned, [place] [facility] 1.2.114 350.1.13.10 4.2.7.2.686 [id number] [facility] 2021-04-16 09:40:00 2021-04-16 09:40:00 Outpatient CHUCKIE GONSALVES [facility] [id number] [facility] 2021-04-02 16:34:17 2021-04-02 23:59:00 Hospital Encounter Chuckie Del Rosario [facility] 1.84.114 350.1.13.10 4.2.7.2.686 [id number] [facility] 2021-04-02 16:29:45 2021-04-02 17:01:34 Office Visit Chuckie Del Rosario [facility] 1.84.114 350.1.13.10 4.2.7.2.686 [id number] [facility] 2021-04-02 16:00:00 2021-04-02 17:01:34 Outpatient CHUCKIE GONSALVES [facility] [id number] [facility] 2021-03-26 00:00:00 2021-03-26 00:00:00 Orders Only Doctor Unassigned, [place] [facility] 1.2.840.114 350.1.13.10 4.2.7.2.686 [id number] [facility]
[2024-07-25 22:58] LABS: Absolute Basophils 0.1 K/uL (0-0.5); Absolute Eosinophils 0.2 K/uL (0-0.5); Absolute Monocytes 0.7 K/uL (0.1-1.3); Absolute Neutrophil 2.9 K/uL (1.8-8.0); Basophils % 1.4 % (0-1.3); Eosinophils % 3.5 % (0-4.4); Hematocrit 42.6 % (39.6-49.0); Hemoglobin 14.8 g/dL (13.6-17.9); Lymphocytes % 33.7 % (15.3-44.8); MCH 29.5 pg (27.0-35.0); MCHC 34.8 g/dL (32.0-36.0); MCV 84.7 fL (80-100); MPV 8.5 fL (7.6-11.3); Monocytes % 11.2 % (3.3-12.3); Neutrophils % 50.2 % (41.7-73.7); Nucleated Red Blood Cells % 0.1 % (0-0); Platelets 244 thou/uL (152-406); RBC Red Blood Cell Count 5.03 M/uL (4.33-5.43); Red Cell Distribution Width 13.6 % (12.1-15.2)
[2024-07-25 23:05] LABS: Anion Gap 8.9 mEq/L (5.0-15.0); Potassium 3.9 mEq/L (3.5-5.1); Troponin High Sensitivity 3.3 pg/mL (<58.9)
--- NOTE | 2024-07-25 23:16 | ER ---
Nurse's Notes [facility] Name: Claudio Calero Age: 63 yrs Sex: Male : 1960 Arrival Date: 07/25/2024 Time: 22:15 Bed 5 Private MD: Diagnosis: Essential (primary) hypertension Presentation: 07/25 22:28 Chief complaint: Patient states: bp was 155/72 tonight and his left ear started ringing me1 tonight. Coronavirus screen: Vaccine status: Patient reports receiving the 2nd dose of the covid vaccine. Ebola Screen: No symptoms or risks identified at this time. Initial Sepsis Screen: Does the patient meet any 2 criteria? No. Patient's initial sepsis screen is negative. Does the patient have a suspected source of infection? No. Patient's initial sepsis screen is negative. Risk Assessment: Do you want to hurt yourself or someone else? Patient reports no desire to harm self or others. Onset of symptoms was July 25, 2024 at 21:00. 22:28 Method Of Arrival[place] [facility] [place]:28 Acuity: EVELYN 3 me1 Historical: - Allergies: 22:30 Sulfa (Sulfonamide Antibiotics); me1 - PMHx: 22:30 deviated septum; Diabetes - NIDDM; GERD; Gout; Hernia; Hypertension; me1 - PSHx: 22:30 hernia; Shoulder; knee; me1 - Immunization history:: Adult Immunizations up to date. - Infectious Disease History:: Denies. - Social history:: Smoking status: Patient denies any tobacco usage or history of. Screenin:43 [facility] ED Fall Risk Assessment (Adult) History of falling in the last 3 months, br2 including since admission No falls in past 3 months (0 pts) Confusion or Disorientation No (0 pts) Intoxicated or Sedated No (0 pts) Impaired Gait No (0 pts). [facility] ED Fall Risk Assessment (Adult) Mobility Assist Device Used No (0 pt) Altered Elimination No (0 pt) Score/Fall Risk Level 0 - 2 = Low Risk Oriented to surroundings. Abuse screen: Denies threats or abuse. Denies injuries from another. Nutritional screening: No deficits noted. Tuberculosis screening: No symptoms or risk factors identified. Assessment: 22:43 Reassessment: Patient is alert, oriented x 3, equal unlabored respirations, skin br2 warm/dry/pink. General: Appears in no apparent distress. comfortable, Behavior is calm, cooperative. Pain: Denies pain. Neuro: Avila Agitation-Sedation Scale (RASS): 0 - Alert and Calm Level of Consciousness is awake, alert, obeys commands, Oriented to person, place, time, situation. EENT: Reports ringing in left ear. Vital Signs: 22:28 BP 158 / 87; Pulse 80; Resp 17; Temp 97.8; Pulse Ox 99% ; Weight 128.37 kg; Height 5 me1 ft. 8 in. ; Pain 0/10; 23:24 BP 138 / 85; Pulse 79; Resp 15 S; Pulse Ox 100% on R/A; Pain 0/10; br2 22:28 Body Mass Index 43.03 (128.37 kg, 172.72 cm) me1 22:28 Pain Scale: Adult me1 23:24 Pain Scale: Adult br2 ED Course: 22:19 Patient arrived in ED. gm2 22:23 George Olvera MD is Attending Physician. ec2 22:30 Triage completed. me1 22:30 Arm band placed on Patient placed in an exam room. me1 22:40 Sonia Lemus, VIVIENNE is Primary Nurse. br2 22:43 Patient has correct armband on for positive identification. Provided Education on: PLAN br2 OF CARE. 22:47 Inserted saline lock: 20 gauge in right antecubital area, using aseptic technique. br2 Blood collected. Flushed with 10 mL NS. 22:53 XRAY Chest (1 view) In Process Unspecified. EDMS 22:58 Basic Metabolic Panel Sent. vk 22:58 CBC with Diff Sent. vk 22:58 Troponin HS Sent. vk 22:58 EKG done, by ED staff. vk 22:58 Initial lab(s) drawn, by ED staff, sent to lab. vk 23:25 IV discontinued, intact, bleeding controlled, No redness/swelling at site. Pressure br2 dressing applied. 23:36 No provider procedures requiring assistance completed. br2 Administered Medications: No medications were administered Outcome: 23:16 Discharge ordered by MD. ec2 23:25 Discharged to home ambulatory, br2 23:25 Condition: stable 23:25 Discharge instructions given to patient, Instructed on discharge instructions, follow up and referral plans. Demonstrated understanding of instructions, follow-up care, 23:37 Patient left the ED. br2 Signatures: Dispatcher [employer] Breanna Armstrong, RN RN me1 George Olvera MD MD 2 Isatu Carpenter 2 Faviola England Belinda, RN RN br2
--- NOTE | 2024-07-25 23:16 | EDPHYS ---
[facility] Name: Claudio Calero Age: 63 yrs Sex: Male : 1960 Arrival Date: 07/25/2024 Time: 22:15 Bed 5 Private MD: ED Physician George Olvera HPI: 07/25 22:42 This 63 yrs old Male presents to ER via Ambulatory with complaints of High ec2 Blood Pressure, EARS RINGING. 22:42 Patient arrives today for elevated blood pressure and reported ringing in the ears. ec2 Patient reports no chest pain difficulty breathing. Denies any abdominal pain. Reports history of hypertension, on lisinopril.. Historical: - Allergies: 22:30 Sulfa (Sulfonamide Antibiotics); me1 - PMHx: 22:30 deviated septum; Diabetes - NIDDM; GERD; Gout; Hernia; Hypertension; me1 - PSHx: 22:30 hernia; Shoulder; knee; me1 - Immunization history:: Adult Immunizations up to date. - Infectious Disease History:: Denies. - Social history:: Smoking status: Patient denies any tobacco usage or history of. ROS: 22:42 Constitutional: as per hpi ec2 Exam: 22:42 Constitutional: GEN: NAD Head: atraumatic Eyes: EOMI Ears: External ears are ec2 normal. CV: regular rate LUNGS: no respiratory distress ABD: non-distended SKIN: no evidence of rashes MSK: no evidence of trauma Vital Signs: 22:28 BP 158 / 87; Pulse 80; Resp 17; Temp 97.8; Pulse Ox 99% ; Weight 128.37 kg; Height 5 me1 ft. 8 in. ; Pain 0/10; 23:24 BP 138 / 85; Pulse 79; Resp 15 S; Pulse Ox 100% on R/A; Pain 0/10; br2 22:28 Body Mass Index 43.03 (128.37 kg, 172.72 cm) me1 22:28 Pain Scale: Adult me1 23:24 Pain Scale: Adult br2 MDM: 22:26 Medical Screening Exam initiated ec2 22:42 Data reviewed: vital signs, nurses notes. ED course: Patient arrives today for ec2 evaluation of an elevated blood pressure. Examination is unrevealing. EKG obtained, independently reviewed and interpreted by me, shows normal sinus rhythm, rate of 73, no acute ST segment elevations, intervals are nonactionable. Will obtain lab work. Evaluating for evidence of endorgan damage however patient without complaints indicate this.. 23:15 ED course: Chest x-ray independently reviewed and interpreted by me, shows no acute ec2 intrathoracic process. Metabolic profile is reassuring, CBC reassuring, troponin within normal ranges. No evidence of endorgan damage noted on lab work. Will discharge home and have the patient follow-up with PCP. Return precautions given.. 07/25 22:27 Order name: Basic Metabolic Panel; Complete Time: 23:14 ec2 07/25 22:27 Order name: CBC with Diff; Complete Time: 23:14 ec2 07/25 22:27 Order name: Troponin HS; Complete Time: 23:14 ec2 07/25 22:27 Order name: XRAY Chest (1 view) ec2 07/25 22:27 Order name: EKG; Complete Time: 22:27 ec2 07/25 22:27 Order name: Cardiac monitoring; Complete Time: 22:58 ec2 07/25 22:27 Order name: EKG - Nurse/Tech; Complete Time: 22:58 ec2 07/25 22:27 Order name: IV Saline Lock; Complete Time: 22:58 ec2 07/25 22:27 Order name: Labs collected and sent; Complete Time: 22:58 ec2 07/25 22:27 Order name: O2 Per Protocol; Complete Time: 22:58 ec2 07/25 22:27 Order name: O2 Sat Monitoring; Complete Time: 22:58 ec2 Administered Medications: No medications were administered Disposition Summary: 07/25/24 23:16 Discharge Ordered Notes: Location: Home ec2 Condition: Stable ec2 Diagnosis - Essential (primary) hypertension ec2 Followup: ec2 - With: Private Physician - When: - Reason: Re-evaluation by your physician Discharge Instructions: - Discharge Summary Sheet ec2 - Heart Disease Prevention ec2 Forms: - Medication Reconciliation Form ec2 - Antibiotic Education ec2 - Prescription Opioid Use ec2 - Patient Portal Instructions ec2 - Leadership Thank You Letter ec2 Signatures: Dispatcher MedHoBreanna Kaur RN RN me1 George Olvera MD MD ec2
--- NOTE | 2024-07-26 06:18 | RAD REPORT ---
CLINICAL HISTORY: Chest pain. COMPARISON: None. TECHNIQUE: XR CHEST 1 VIEW 07/25/2024 10:27 PM TELEPHONE BETTING CLERK FINDINGS: The heart is enlarged. Lungs are clear without consolidation, atelectasis, mass or edema. There is no pleural effusion. There is no pneumothorax. There are no acute osseous findings. IMPRESSION: Clear lungs. Electronically signed by: Yves Neville MD 07/25/2024 11:52 PM TELEPHONE BETTING CLERK RP Due to temporary technical issues with the PACS/MD Revolution reporting system, reports are being amador d by the in-house radiologist without review as a courtesy to ensure prompt reporting the interpreting radiologist is fully responsible for the content of the report. Transcribed Date/Time: 07/26/2024 6:18 AM
[2024-07-26 09:52] VITALS: TEMP 97.8
[2024-07-26 09:58] VITALS: BP 138/85; O2SAT 100
--- NOTE | 2024-07-26 11:44 | EKG ---
Test Date: 2024-07-25 Test Time: 22:39:19 President + Publisher: MARGIE MEASUREMENT RESULTS: Intervals: Rate: 73 [place]: 188 QRSD: 80 QT: 370 QTc: 407 [place]: P: 51 [place]: 188 QRS: 60 T: 41 INTERPRETIVE STATEMENTS: Normal sinus rhythm Septal infarct, age undetermined Abnormal ECG Compared to ECG 08/19/2023 08:17:43 Myocardial infarct finding now present Electronically Signed On 07-26-24 11:43:36 GAS CONTROLLER by Bryn Mcnair
== END 2024-07-25 23:37 | disposition home or self-care (01) ==
LOC: ER 22:15
DX: I10 Essential (primary) hypertension (principal)
CPT/HCPCS: 36415; 71045; 80048; 84484; 85025; 93005

== ENCOUNTER 2024-07-26 01:07 | Emergency (ER) | payer OTHER ==
--- OUTSIDE RECORDS SUMMARY | 2024-07-26 01:09 | XMS REPORT | Continuity of Care Document ---
Author Name Unknown Address [address] [facility] [address] [place] [address] [facility] thconnect Address [address] [facility] [address] [place] [address] Care Team Providers Care Substation Wireman Name Role Phone Kimberly Randolph Primary Care Physician [phone] Chuckie Del Rosario MD Attending Clinician [phone] Doctor Unassigned, [place] Attending Clinician U Prashanth Angel MD Attending Clinician [phone] CHUCKIE DEL ROSARIO Attending Clinician Unavailable January Boss MD Attending Clinician [phone] JANUARY BOSS Attending Clinician Unavailable KELSY RODRIGUEZ Attending Clinician Unavailable [facility] Attending Clinician Unavailable CHUCKIE DEL ROSARIO Admitting Clinician Unavailable Payers Payer Name Policy Type Policy Number Effective Date Expirati on Date Source Problems Condition Name Condition Details Condition Category Status Onset Date Resolution Date Last Treatment Date Treating Clinician Comments Source No known active problems No known active problems Disease [facility] Allergies, Adverse Reactions, Alerts Allergy Name Allergy Type Status Severity Reaction(s) Onset Date Inactive Date Treating Clinician Comments Source NO KNOWN ALLERGIE S Drug Class Active [facility] Social History Social Habit Start Date Stop Date Quantity Comments Source [facility] to SARS-CoV-2 (event) 2021-10-04 00:00:00 2021-10-14 10:29:00 Not sure [facility] Sex Assigned At 1960 00:00:00 1960 00:00:00 [facility] Smoking Status Start Date Stop Date Source Tobacco smoking consumption unknown [facility] Medications Ordered Medication Name Filled Medication Name Start Date Stop Date Current Medication? Ordering Clinician Indication Dosage Frequency Signature (SIG) Comments Components Source meloxicam (MOBIC) 7.5 mg tablet 08-20 00:00: 00 Yes 7.5mg Take 1 tablet by mouth daily. [facility] Immunizations Ordered Immunization Name Filled Immunization Name Date Status Comments Source SARS-COV-2 COVID-19 PFIZER VACCINE 2020-08-15 00:00:00 Completed [facility] SARS-COV-2 COVID-19 PFIZER VACCINE 2020-08-15 00:00:00 Completed [facility] SARS-COV-2 COVID-19 PFIZER VACCINE 2020-08-15 00:00:00 Completed [facility] SARS-COV-2 COVID-19 PFIZER VACCINE 2020-07-25 00:00:00 Completed [facility] SARS-COV-2 COVID-19 PFIZER VACCINE 2020-07-25 00:00:00 Completed [facility] SARS-COV-2 COVID-19 PFIZER VACCINE 2020-07-25 00:00:00 Completed [facility] SARS-COV-2 COVID-19 PFIZER VACCINE Unknown Completed [facility] Procedures Procedure Date / Time Performed Performing Clinician Source AUTHORIZATION FOR RELEASE OF PHI 2021-12-25 05:01:00 Doctor Unassigned, [place] [facility] Encounters Start Date/Time End Date/Time Encounter Type Admission Type Attending [facility] Care Facility Care Department Encounter ID Source 2023-11-19 13:13:08 2023-11-19 13:13:08 Outpatient [facility] [id number] Jeron[address] [place] 2022-06-02 00:00:00 2022-06-02 00:00:00 Telephone Chuckie Del Rosario [facility] [id number] 350.1.13.10 4.2.7.2.686 [id number] [facility] 2022-03-13 09:00:00 2022-03-13 09:00:00 Outpatient R [facility] [id number] [facility] 2021-12-25 00:00:00 2021-12-25 00:00:00 Orders Only Doctor Unassigned, [place] [facility] 1.840.114 350.1.13.10 4.2.7.2.686 [id number] [facility] 2021-12-19 09:00:00 2021-12-19 09:00:00 Outpatient R [facility] [id number] [facility] 2021-12-04 00:00:00 2021-12-04 00:00:00 Telephone Prashanth Gibbs [facility] 1.840.114 350.1.13.10 4.2.7.2.686 [id number] [facility] 2021-10-22 15:50:00 2021-10-22 15:50:00 Outpatient R CHUCKIE DEL ROSARIO [facility] [id number] [facility] 2021-10-14 07:30:00 2021-10-14 23:59:00 Hospital Encounter January Boss [facility] 1.840.114 350.1.13.10 4.2.7.2.686 [id number] [facility] 2021-10-14 07:30:00 2021-10-14 23:59:00 Outpatient JANUARY BEAR [facility] [id number] [facility] 2021-09-17 09:30:00 2021-09-17 09:30:00 Outpatient KELSY MEDINA [facility] [id number] [facility] 2021-09-17 09:30:00 2021-09-17 09:30:00 Outpatient KELSY MEDINA [facility] [id number] [facility] 2021-09-16 00:00:00 2021-09-16 00:00:00 Telephone Chuckie Del Rosario [facility] 1..840.114 350.1.13.10 4.2.7.2.686 [id number] [facility] 2021-09-10 16:00:00 2021-09-10 16:59:59 Office Visit Chuckie Del Rosario SPECIALTY CARE [facility] 1..840.114 350.1.13.10 4.2.7.2.686 [id number] [facility] 2021-09-10 16:00:00 2021-09-10 16:59:59 Outpatient R CHUCKIE DEL ROSARIO [facility] [id number] [facility] 2021-09-10 16:00:00 2021-09-10 16:59:59 Outpatient R CHUCKIE DEL ROSARIO [facility] [id number] [facility] 2021-09-10 16:00:00 2021-09-10 16:00:00 Outpatient R CHUCKIE DEL ROSARIO [facility] [id number] [facility] 2021-09-10 16:00:00 2021-09-10 16:00:00 Outpatient R CHUCKIE DEL ROSARIO [facility] [id number] [facility] 2021-09-10 15:20:00 2021-09-10 15:20:00 Outpatient R CHUCKIE DEL ROSARIO [facility] [id number] [facility] 2021-09-10 00:00:00 2021-09-10 00:00:00 Orders Only Doctor Unassigned, [place] [facility] 1.840.114 350.1.13.10 4.2.7.2.686 [id number] [facility] 2021-09-05 00:00:00 2021-09-05 00:00:00 Telephone Chuckie Del Rosario [facility] 1..840.114 350.1.13.10 4.2.7.2.686 [id number] [facility] 2021-08-25 00:00:00 2021-08-25 00:00:00 [facility] 1.2840.114 350.1.13.10 4.2.7.2.686 [id number] [facility] 2021-08-20 13:45:00 2021-08-20 15:01:18 Outpatient R CHUCKIE DEL ROSARIO [facility] [id number] [facility] 2021-08-20 13:45:00 2021-08-20 14:00:00 Hat Conditioner Visit [facility] Porsha [facility] AT [facility] .840.114 350.1.13.10 4.2.7.2.686 [id number] [facility] 2021-08-20 13:45:00 2021-08-20 13:45:00 Outpatient R CHUCKIE DEL ROSARIO [facility] [id number] [facility] 2021-08-20 12:40:00 2021-08-20 13:31:32 Outpatient R CHUCKIE DEL ROSARIO [facility] [id number] [facility] 2021-08-20 12:40:00 2021-08-20 13:31:32 Office Visit Porsha [facility] .840.114 350.1.13.10 4.2.7.2.686 [id number] [facility] 2021-08-13 00:00:00 2021-08-13 00:00:00 Telephone Porsha [facility] .840.114 350.1.13.10 4.2.7.2.686 [id number] [facility] 2021-07-16 00:00:00 2021-07-16 00:00:00 Patient Secure Msg Porsha [facility] 1.2.840.114 350.1.13.10 4.2.7.2.686 [id number] [facility] 2021-07-02 12:50:00 2021-07-02 12:50:00 Outpatient CHUCKIE GONSALVES [facility] [id number] [facility] 2021-06-11 00:00:00 2021-06-11 00:00:00 Orders Only Doctor Unassigned, [place] [facility] 1.20.114 350.1.13.10 4.2.7.2.686 [id number] [facility] 2021-05-28 00:00:00 2021-05-28 00:00:00 Patient Secure Msg Doctor Unassigned, [place] [facility] 1.2.114 350.1.13.10 4.2.7.2.686 [id number] [facility] 2021-05-21 11:00:00 2021-05-21 11:00:00 Outpatient CHUCKIE GONSALVES [facility] [id number] [facility] 2021-05-21 00:00:00 2021-05-21 00:00:00 Orders Only Doctor Unassigned, [place] [facility] 1.2.114 350.1.13.10 4.2.7.2.686 [id number] [facility] 2021-04-16 09:40:00 2021-04-16 09:40:00 Outpatient CHUCKIE GONSALVES [facility] [id number] [facility] 2021-04-02 16:34:17 2021-04-02 23:59:00 Hospital Encounter Chuckie Del Rosario [facility] 1.84.114 350.1.13.10 4.2.7.2.686 [id number] [facility] 2021-04-02 16:29:45 2021-04-02 17:01:34 Office Visit Chuckie Del Rosario [facility] 1.84.114 350.1.13.10 4.2.7.2.686 [id number] [facility] 2021-04-02 16:00:00 2021-04-02 17:01:34 Outpatient CHUCKIE GONSALVES [facility] [id number] [facility] 2021-03-26 00:00:00 2021-03-26 00:00:00 Orders Only Doctor Unassigned, [place] [facility] 1.2.840.114 350.1.13.10 4.2.7.2.686 [id number] [facility]
--- NOTE | 2024-07-26 01:19 | EDPHYS ---
Physician Documentation [facility] Name: Claudio Calero Age: 63 yrs Sex: Male : 1960 Arrival Date: 07/26/2024 Time: 01:07 Bed 20 Private MD: ED Physician George Olvera HPI: 07/26 01:16 This 63 yrs old Male presents to ER via Unassigned with complaints of ec2 asymptomatic hypertension. 01:16 patient arrives today d/t concern for asymptomatic hypertension. States that he ec2 returned home after being seen for elevated blood pressure with a negative workup, checked his blood pressure and is now back. Patient reports no symptoms, no complaints, denies headache or chest pain or shortness of breath, denies abdominal pain.. Historical: - Allergies: :31 Sulfa (Sulfonamide Antibiotics); aa10 - Home Meds: :31 Allopurinol Oral [Active]; cetirizine Oral [Active]; lisinopril 10 mg Oral tab 1 tab aa10 once daily [Active]; metformin 500 mg Oral Tb24 1 tab once daily [Active]; omeprazole 20 mg Oral cpDR 1 cap once daily [Active]; - PMHx: :31 deviated septum; Diabetes - NIDDM; GERD; Gout; Hernia; Hypertension; aa10 - Immunization history:: Adult Immunizations up to date. - Infectious Disease History:: Denies. - Social history:: Smoking status: unknown. ROS: 01:17 Constitutional: as per hpi ec2 Exam: 01:17 Constitutional: GEN: NAD Head: atraumatic Eyes: EOMI Ears: External ears are ec2 normal. CV: regular rate LUNGS: no respiratory distress ABD: non-distended SKIN: no evidence of rashes MSK: no evidence of trauma. Neuro: Cranial nerves II through XII intact, strength intact all 4 extremities, no pronator drift Vital Signs: 01:27 BP 143 / 79; Pulse 76; Resp 20; Temp 98.6; Pulse Ox 98% on R/A; aa10 02:14 BP 140 / 78; Pulse 82; Resp 20; Temp 98; Pulse Ox 99% on R/A; aa10 MDM: 01:16 Medical Screening Exam initiated ec2 01:17 Data reviewed: vital signs, nurses notes, EMS record. ED course: Patient arrives today ec2 for asymptomatic hypertension. Patient was seen earlier by me with normal workup. Patient has an intact neurologic examination, reassuring physical examination with no complaints. Patient is appropriate for discharge. I had an extensive conversation with patient regarding asymptomatic hypertension and how giving him IV hypertensive medications can potentially precipitate acute ischemia and become more problematic for the patient. I instructed him he needs a follow-up with his primary care doctor in the morning to discuss outpatient management for his high blood pressure. Patient is appropriate for discharge. Administered Medications: No medications were administered Disposition Summary: 07/26/24 01:18 Discharge Ordered Condition: Stable ec2 Diagnosis - Essential (primary) hypertension ec2 Followup: ec2 - With: Private Physician - When: - Reason: Re-evaluation by your physician Discharge Instructions: - Discharge Summary Sheet ec2 Forms: - Medication Reconciliation Form ec2 - Antibiotic Education ec2 - Prescription Opioid Use ec2 - Patient Portal Instructions ec2 - Leadership Thank You Letter ec2 Signatures: George Olvera MD MD ec2 Breanne Cedeno RN RN aa10 Corrections: (The following items were deleted from the chart) 01:32 01:31 PSHx: Shoulder; aa10 aa10 01:32 01:31 PSHx: hernia; aa10 aa10 01:32 01:31 PSHx: knee; aa10 aa10
--- NOTE | 2024-07-26 02:15 | ER ---
Nurse's Notes [facility] Name: Claudio Calero Age: 63 yrs Sex: Male : 1960 Arrival Date: 07/26/2024 Time: 01:07 Bed 20 Private MD: Diagnosis: Essential (primary) hypertension Presentation: 07/26 01:29 Chief complaint: Patient states: elevated blood pressure, with systolic blood pressure aa10 in the 200's per patient, blood pressure was 143/79mmhg at bedside. Coronavirus screen: Vaccine status: Client denies travel out of the [place] in the last 14 days. Ebola Screen: Patient negative for fever greater than or equal to 101.5 degrees Fahrenheit, and additional compatible Ebola Virus Disease symptoms Patient denies exposure to infectious person. Patient denies travel to an Ebola-affected area in the 21 days before illness onset. No symptoms or risks identified at this time. Initial Sepsis Screen: Does the patient meet any 2 criteria? No. Patient's initial sepsis screen is negative. Does the patient have a suspected source of infection? No. Patient's initial sepsis screen is negative. Risk Assessment: Do you want to hurt yourself or someone else? Patient reports no desire to harm self or others. Onset of symptoms was July 26, 2024. 01:29 Method Of Arrival: EMS: [facility] aa10 01:29 Acuity: EVELYN 2 aa10 Triage Assessment: 02:10 General: Appears in no apparent distress. Behavior is calm, cooperative, appropriate aa10 for age. Pain: Denies pain. Historical: - Allergies: : Sulfa (Sulfonamide Antibiotics); aa10 - Home Meds: 01:31 Allopurinol Oral [Active]; cetirizine Oral [Active]; lisinopril 10 mg Oral tab 1 tab aa10 once daily [Active]; metformin 500 mg Oral Tb24 1 tab once daily [Active]; omeprazole 20 mg Oral cpDR 1 cap once daily [Active]; - PMHx: :31 deviated septum; Diabetes - NIDDM; GERD; Gout; Hernia; Hypertension; aa10 - Immunization history:: Adult Immunizations up to date. - Infectious Disease History:: Denies. - Social history:: Smoking status: unknown. Screenin:12 [facility] ED Fall Risk Assessment (Adult) History of falling in the last 3 months, aa10 including since admission No falls in past 3 months (0 pts) Confusion or Disorientation No (0 pts) Intoxicated or Sedated No (0 pts) Impaired Gait No (0 pts) Mobility Assist Device Used No (0 pt) Altered Elimination No (0 pt) Score/Fall Risk Level 0 - 2 = Low Risk Oriented to surroundings, Maintained a safe environment, Educated pt \T\ family on fall prevention, incl call for assistance when getting out of bed, Assessed \T\ reinforced patient's understanding of fall precautions, Provided non-skid footwear, Hourly rounding (assess needs \T\ fall precautionary measures) done. Abuse screen: Denies threats or abuse. Denies injuries from another. Nutritional screening: No deficits noted. Tuberculosis screening: No symptoms or risk factors identified. Assessment: 02:11 General: Appears in no apparent distress. comfortable, Behavior is calm, cooperative, aa10 appropriate for age. Neuro: No deficits noted. Level of Consciousness is awake, alert, obeys commands, Oriented to person, place, time, situation, Appropriate for age Building Equipment Operator are equal bilaterally Moves all extremities. Gait is steady. Cardiovascular: No deficits noted. Capillary refill < 3 seconds. Respiratory: No deficits noted. Airway. Vital Signs: 01:27 BP 143 / 79; Pulse 76; Resp 20; Temp 98.6; Pulse Ox 98% on R/A; aa10 02:14 BP 140 / 78; Pulse 82; Resp 20; Temp 98; Pulse Ox 99% on R/A; aa10 ED Course: 01:15 Patient arrived in ED. lg3 01:16 George Olvera MD is Attending Physician. ec2 01:31 Triage completed. aa10 02:11 Arm band placed on right wrist. Patient placed in the treatment room. aa10 02:12 Patient has correct armband on for positive identification. Allergy band placed. Fall aa10 risk band placed. Placed in gown. Bed in low position. Side rails up X2. Provided Education on: about plan of care. 02:12 No provider procedures requiring assistance completed. IV discontinued. aa10 Administered Medications: No medications were administered Medication: 02:12 VIS not applicable for this client. aa10 Outcome: 01:18 Discharge ordered by . ec2 02:13 Discharged to home ambulatory, aa10 02:13 Condition: good 02:13 Discharge instructions given to patient, Instructed on discharge instructions, Demonstrated understanding of instructions, follow-up care, 02:14 Patient left the ED. aa10 Signatures: Kala Calix RN RN lg3 George Olvera MD MD ec2 Breanne Cedeno RN RN aa10 Corrections: (The following items were deleted from the chart) 01:32 01:31 PSHx: Shoulder; aa10 aa10 :32 01:31 PSHx: hernia; aa10 aa10 :32 01:31 PSHx: knee; aa10 aa10
[2024-07-26 11:06] VITALS: BP 140/78; TEMP 98; O2SAT 99
== END 2024-07-26 02:14 | disposition home or self-care (01) ==
LOC: ER 01:07
DX: I10 Essential (primary) hypertension (principal)